=== PATIENT | female | born 1940 | race Caucasian/White ===

== ENCOUNTER → 2017-12-04 11:59 | Outpatient (CLI) | payer MEDICARE, OTHER, SELFPAY ==
[2017-12-04 12:50] LABS: Absolute Lymphocyte Count 0.93 X10^3/ul (0.83-4.51); Absolute Neutrophil Count 4.4 X10^3/uL (2.0-7.7); Basophil# 0.03 X10^3/uL; Basophil% 0.5 % (0-1); Eosinophil# 0.11 X10^3/uL; Eosinophils% 1.9 % (0-5); Hematocrit 44.2 % (37-47); Hemoglobin 14.1 g/dl (12.0-15.0); Lymphocyte # 0.93 X10^3/ul (4.0); Lymphocyte % 15.8 % (19-41); Mean Corp Hgb Conc 31.9 g/gl (32-36); Mean Corpuscular Hgb 28.9 pg (27.0-32.0); Mean Corpuscular Volume 90.6 fL (81-99); Mean Platelet Vol. 9.9 fl (6.2-12.0); Monocyte% 6.8 % (0-10); Neutrophil # 4.39 X10^3/uL (2.7-7.7); Neutrophil % 74.8 % (47-70); POSITIVE COUNT NO; POSITIVE DIFFERENTIAL NO; POSITIVE MORPHOLOGY NO; Platelet Count 239 K/mm3 (150-450); RBC Distribution Width CV 13.2 % (11.6-14.6); RBC Distribution Width SD 43.5 fl (35.1-43.9); Red Blood Count 4.88 M/mm3 (4.2-5.4); White Blood Count 5.9 K/mm3 (4.4-11.0)
[2017-12-04 13:09] LABS: Anion Gap 9 (5-15); BUN 18 mg/dL (7-18); BUN/Creat Ratio 17.1 RATIO (10-20); Calcium,Total 9.3 mg/dL (8.5-10.1); Chloride 103 mmol/L (98-107); Creatinine, Serum 1.05 mg/dL (0.55-1.02); EST Glomerular Filtration Rate 54 mL/min (>60); Est Glom Filt Rate - Afr Amer 65 mL/min (>60); Glucose 106 mg/dL (74-106); Potassium 4.3 mmol/L (3.5-5.1); Sodium Level 138 mmol/L (136-145)
== END ==
PROVIDERS: Family Provider Internal Medicine; PCP Internal Medicine; Visit Provider Internal Medicine Cardiovascular Disease
DX: I25.119 Atherosclerotic heart disease of native coronary artery with unspecified angina pectoris (principal)
CPT/HCPCS: 36415; 71046; 80048; 85025

== ENCOUNTER 2017-12-09 08:31 | Inpatient (IN) | payer MEDICARE, OTHER, SELFPAY ==
[2017-12-09] VITALS (16 sets, daily range): BP systolic 91–177; BP diastolic 52–92; PULSE 61–95; RESP 16–24; TEMP 36.8–37.1; O2SAT 93–98; BMI 24.5; BMI 24.4
--- NOTE | 2017-12-09 08:49 | ED.VISSUMM ---
- ER Visit Summary Date of Service: 12/09/17 Chief Complaint: Chest pain History of Present Illness: The patient is a 77 F who presents with chest pain that began last night. Patient states she was at rest when the pain began. Patient states the pain is over the left chest and radiates down her left arm. Patient noticed a bruise in her left antecubital area that was swollen last night. Patient took 2 aspirin early this morning. Patient did not take any nitroglycerin tablets. Patient saw her office lead recently who increased her long-acting nitrate and her amlodipine. Patient does admit to some diaphoresis but denies any shortness of breath. Patient describes her pain as a heaviness. Patient states this is similar to her prior AL. Patient admits to nausea and vomiting. Patient also admits to some palpitations and a mild cough. Physical Examination: Vital signs are stable except for an elevated blood pressure of 159/92. Oral mucosa is pink and moist. Neck is supple. There is no JVD noted. Heart was regular rate and rhythm. There is a grade 2/6 systolic murmur at the right upper sternal border. Lungs are clear and equal bilaterally. There is good respiratory effort noted. Abdomen is soft. Bowel sounds are normal. There is no tenderness. Cranial nerves II through XII are intact. There are no focal motor or sensory deficits noted. Skin is warm dry. There is no diaphoresis noted. There is no pallor noted. The remaining physical exam is within normal limits. Test Results: EKG showed normal sinus rhythm with a rate of 97. There is ST depression in leads V2 through V6. These are new compared to the EKG dated 12/03/2017. CBC, basic metabolic profile, and troponin were obtained and were all essentially within normal limits. Chest x-ray does not show any acute cardiopulmonary process. Emergency Department Course and Treatment: Patient was given aspirin and sublingual nitroglycerin here. Patient had complete relief of her pain with one sublingual nitroglycerin tablet. Case was discussed with Dr. Voss. He will admit the patient to his service. Patient and family understand and are agreeable with the plan. All questions were answered. Disposition: Admission Impression: Chest pain This note was generated with [employer] dictation software. It may contain incorrect words, spelling, and punctuation that were not noted in review of the chart prior to signing ED Disposition - Plan for ED Patient: Disposition: Acute Care Hospital [facility] Chief Complaint: Chest Other Diagnosis: Chest pain Referrals: Linda Guerrier [Primary Care Provider] -
[2017-12-09] MEDS: Ondansetron 4 MG/2 ML Vial IV (09:14)
[2017-12-09] MEDS: Aspirin 81 MG TAB.CHEW 324 MG PO (09:14)
[2017-12-09 09:15] LABS: Absolute Lymphocyte Count 1.03 X10^3/ul (0.83-4.51); Absolute Neutrophil Count 4.2 X10^3/uL (2.0-7.7); Basophil# 0.05 X10^3/uL; Basophil% 0.9 % (0-1); Eosinophil# 0.11 X10^3/uL; Eosinophils% 1.9 % (0-5); Hematocrit 41.2 % (37-47); Hemoglobin 14.3 g/dl (12.0-15.0); Lymphocyte # 1.03 X10^3/ul (4.0); Lymphocyte % 17.7 % (19-41); Mean Corp Hgb Conc 34.7 g/gl (32-36); Mean Corpuscular Hgb 30.4 pg (27.0-32.0); Mean Corpuscular Volume 87.7 fL (81-99); Mean Platelet Vol. 10.1 fl (6.2-12.0); Monocyte# 0.46 X10^3/uL; Monocyte% 7.9 % (0-10); Neutrophil # 4.15 X10^3/uL (2.7-7.7); Neutrophil % 71.4 % (47-70); Platelet Count 201 K/mm3 (150-450); RBC Distribution Width CV 12.9 % (11.6-14.6); White Blood Count 5.8 K/mm3 (4.4-11.0)
[2017-12-09 09:16] LABS: POSITIVE COUNT NO; POSITIVE DIFFERENTIAL NO; POSITIVE MORPHOLOGY NO
[2017-12-09 09:29] LABS: Anion Gap 11 (5-15); BUN 14 mg/dL (7-18); BUN/Creat Ratio 15.4 RATIO (10-20); Calcium,Total 9.2 mg/dL (8.5-10.1); Chloride 106 mmol/L (98-107); Creatinine, Serum 0.91 mg/dL (0.55-1.02); EST Glomerular Filtration Rate 63 mL/min (>60); Est Glom Filt Rate - Afr Amer 77 mL/min (>60); Estimated Creatinine Clearance 37.83 ml/min; Glucose 117 mg/dL (74-106); Potassium 3.6 mmol/L (3.5-5.1); Sodium Level 140 mmol/L (136-145)
--- NOTE | 2017-12-09 10:08 | NURSING ---
CALLED [facility] TO SEND PT
--- NOTE | 2017-12-09 10:11 | NURSING ---
SPOKE W/ DR. MENDEZ ABOUT CONSULTATION TO DR. LYNNE. OKAY TO WAIT TO CONSULT UNTIL TOMORROW THIS PT IS A PT HE FOLLOWS.
[2017-12-09] MEDS: Acetaminophen 325 MG Tablet 650 MG PO (11:37)
[2017-12-09] MEDS: Metoprolol Tartrate 50 MG Tablet PO ×2 (11:59→21:51)
[2017-12-09] MEDS: Losartan Potassium 100 MG Tablet PO (11:59)
[2017-12-09] MEDS: Isosorbide Mononitrate 30 MG Tablet PO (11:59)
[2017-12-09] MEDS: Enoxaparin 40 MG/0.4 ML Syringe SC (11:59)
[2017-12-09] MEDS: amLODIPine 10 MG Tablet PO (11:59)
[2017-12-09] MEDS: Clopidogrel Bisulfate 75 MG Tablet PO (12:00)
--- NOTE | 2017-12-09 13:39 | PCM.HP.STD ---
Problem List (1) Chest pain Status: Acute History of Present Illness Date of Admission: 12/09/17 Chief Complaint: chest pain The patient is a 77 year old F presents with chest pain. Chest pain woke her this morning and was midsternal. Patient states that she gets this intermittently given her prior history of coronary artery disease, however this time, patient had pain that went down her left arm. Patient was concerned and came to the emergency room. In the emergency room they did workup which was essentially unremarkable except for some deeper ST depressions in the anterior and lateral leads which were not as deep previously. Patient did receive nitroglycerin that did alleviate her pain. Patient states that over the past few weeks she has also been having whole nausea and vomiting. It is sporadic and was her very few days where she would have an episode to about every other day prior to this arrival. No direct correlation with her chest pain. Patient was having some shortness of breath as well. Patient denied any abdominal pain. [] Past Medical History Past Medical History (Chronic Problems): Chronic Problems (Last Updated 12/05/17 @ 15:44 by Marlys Richards) Atherosclerosis of coronary artery of [place] heart with angina pectoris (Chronic) [id number] and Mid LAD w/ 2.5 x 14 mm Resolute stent and 3 x 15 mm Resolute stent 08/09/14 Non-rheumatic aortic stenosis (Chronic) Hypertension (Chronic) Old myocardial infarction (Chronic) Medical History: Medical History (Last Reviewed 12/09/17 @ 13:41 by Stephan Voss DO) Atherosclerosis of coronary artery of [place] heart with angina pectoris (Chronic) I25.119 [id number] and Mid LAD w/ 2.5 x 14 mm Resolute stent and 3 x 15 mm Resolute stent 08/09/14 Non-rheumatic aortic stenosis (Chronic) I35.0 Hypertension (Chronic) I10 Old myocardial infarction (Chronic) I25.2 Allergies Penicillins Allergy (Verified 12/09/17 08:36) rash Sulfa (Sulfonamide Antibiotics) Allergy (Verified 12/09/17 08:36) rash Rivwwpd-Fcy-Rjq Reductase Inhibitor Adverse Reaction (Verified 12/09/17 08:36) myalgias Home Medications: Ambulatory Orders Medication Instructions Recorded amlodipine 5 mg tablet 10 mg PO DAILY #60 tab 12/04/17 cholecalciferol (vitamin D3) 50,000 unit PO FR 12/04/17 50,000 unit capsule clopidogrel 75 mg tablet 75 mg PO DAILY 12/04/17 isosorbide mononitrate ER 30 mg 30 mg PO DAILY #30 tab 12/04/17 tablet,extended release 24 hr losartan 100 mg tablet 100 mg PO DAILY 12/04/17 metoprolol tartrate 50 mg tablet 50 mg PO BID 12/04/17 nitroglycerin 0.4 mg sublingual 0.4 mg SUBLINGUAL Q5-15M PRN 12/04/17 tablet Aspirin [Aspirin EC] 81 mg PO DAILY 12/09/17 Surgical History: Surgical History (Last Reviewed 12/09/17 @ 13:41 by Stephan Voss DO) History of coronary artery stent placement (Resolved) Onset Date: 08/09/14 Z95.5 [id number] and Mid LAD w/ 2.5 x 14 mm Resolute stent and 3 x 15 mm Resolute stent 08/09/14 History of appendectomy Z90.49 Lives: Spouse/ Significant Other Smoking Status: Never smoker Tobacco Use: Non-smoker Alcohol: None - *Family History Paternal Family History: Family History (Last Reviewed 12/09/17 @ 13:41 by Stephan Voss DO) Father CAD (coronary artery disease) Myocardial infarction Review of Systems Constitutional: Denies: Chills, Fever, Weight Change Eyes: Denies: Blurred vision, Double vision HEENT: Denies: Head Aches, Sinus Congestion, Sinus Drainage Cardiovascular: Reports: Chest Pain. Denies: Edema Respiratory: Reports: Shortness of Breath. Denies: Cough Gastrointestinal: Reports: Nausea, Vomiting. Denies: Abdominal Pain Genitourinary: Denies: Dysuria Musculoskeletal: Reports: Arm Pain - Left arm. Denies: Joint Pain, Joint Tenderness Skin: Denies: Rash, Wounds Neurological: Denies: Numbness, Tingling, Focal weakness Psychiatric: Denies: Anxiety, Depression Hematologic/ Lymphatic: Denies: Easy Bruising, Easy Bleeding Comment: All review of systems are negative except as mentioned in the history of present illness and the other review of systems. VTE Information - Inpt Only VTE Present on Admission: No VTE Pharm Prophylaxis ordered?: Yes Patient Problems: Active and Suspected Problems (Last Updated 12/05/17 @ 15:44 by Marlys Richards) Chest pain (Acute) - Physical Exam General: Alert, Cooperative, No apparent distress HEENT: Atraumatic, Normocephalic Oral: Moist Mucosa, No Gingival or Mucosal Lesions/ Ulcerations Neck: No Nodes, Thyroid Normal Size and Texture Lungs: Clear to auscultation, Normal air movement, No rhonchi, No wheeze Cardiovascular: Regular rate, Regular Rhythm, Normal S1, Normal S2, - - 3 out of 6 systolic ejection murmur at the right upper sternal border Abdomen: Bowel Sounds Present, Soft, Non Tender, Non-Distended, No Hepato-splenomegaly Extremities: No edema, No Calf Tenderness Skin: No rashes, No breakdown Neurological: Neuro grossly intact, - - No clonus Psych/Mental Status: Normal Affect, Appropriate Vital Signs Temp Pulse Resp BP Pulse Ox 36.9 C 95 18 134/69 H 97 12/09/17 10:52 12/09/17 12:17 12/09/17 10:52 12/09/17 10:52 12/09/17 10:52 Oxygen Flow Rate (L/min) 2 Oxygen Delivery Method Room Air Weight: 58.7 kg Body Mass Index (BMI) 24.4 Laboratory Tests Past 24 Hrs 12/09/17 11:53 Troponin I < 0.015 Clinical Impression(s) from Imaging Studies Chest X-Ray 12/09/17 08:47 IMPRESSION: No acute pulmonary process Electronically Signed: Atnoni Porter MD at 9:22 EDT , Service support , EKG personally reviewed and showed normal sinus rhythm with greater than [address] depressions in anterior and lateral leads. Assessment/Plan All Active Problems (Last Updated 12/05/17 @ 15:44 by Marlys Richards) Chest pain (Acute) History of coronary artery stent placement (Resolved 08/09/14) 1. Chest pain Heart score 8 KATHY Currently chest pain-free Continue with medical management for now and consult cardiology 2. Aortic stenosis Patient recently sought secondary opinion for possible valve replacement. Follow-up with cardiology as outpatient. 3. DVT prophylaxis with low molecular weight heparin Code Visit OBSV E&M: 22391 Initial observation care L3
[2017-12-10] VITALS (23 sets, daily range): BP systolic 95–158; BP diastolic 46–78; PULSE 56–96; RESP 14–18; TEMP 36.7–37.1; O2SAT 92–95
--- NOTE | 2017-12-10 10:29 | PCM.CONS.C ---
Problem List (1) Angina pectoris Status: Acute (2) CAD (coronary artery disease) Status: Chronic Qualifiers: Coronary Disease-Associated Artery/Lesion type: [place] artery [place] vs. transplanted heart: [place] heart Associated angina: with unstable angina Qualified Code(s): I25.110 - Atherosclerotic heart disease of [place] coronary artery with unstable angina pectoris (3) History of coronary artery stent placement Status: Resolved Comment: [id number] and Mid LAD w/ 2.5 x 14 mm Resolute stent and 3 x 15 mm Resolute stent 08/09/14 (4) Non-rheumatic aortic stenosis Status: Chronic (5) HLD (hyperlipidemia) Status: Chronic Qualifiers: Hyperlipidemia type: unspecified Qualified Code(s): E78.5 - Hyperlipidemia, unspecified (6) Hypertension Status: Chronic Reason for Consult Date of Consultation: 12/10/17 History of Present Illness: The patient is a 77 year old white female with a past medical history of hyperlipidemia (Statin intolerance) hypertension, CAD, status post MO, status post PCI, aortic valve stenosis, who is referred for evaluation of symptoms concerning for accelerating angina pectoris/unstable angina pectoris. She recently presented to the outpatient setting for an initial outpatient cardiovascular consultation based upon the aforementioned history and concerns. After review of her case she was recommended for a transthoracic echocardiogram and a diagnostic cardiac catheterization. In the interim based on ongoing symptoms she presented to [facility] for further evaluation care. She states that her symptoms have included the elephant sitting on my chest feeling as well as left upper extremity discomfort and nausea/emesis. She also gets short of breath and dyspneic with exertional activity especially an incline. She has denied orthopnea and PND and worsening peripheral pitting edema. There has been a questionable history of post nitroglycerin sublingual use transient unresponsiveness and or loss of consciousness. She does not recall any episodes of abrupt syncope. He is being admitted to the hospital she has had cardiac enzymes performed. They have been negative. She had ECGs performed. She was noted on electrocardiogram to have sinus rhythm. She did have ST and T-wave abnormality concerning for myocardial ischemia - anterior/lateral/inferior. These changes appear to be somewhat less prominent since admission to the hospital. She also had a chest x-ray performed. Based upon preliminary review she had no acute radiologic changes. [] Past Medical History Allergies/Adverse Reactions: Allergies Penicillins Allergy (Verified 12/09/17 08:36) rash Sulfa (Sulfonamide Antibiotics) Allergy (Verified 12/09/17 08:36) rash Rvjsvvy-Qxx-Ycb Reductase Inhibitor Adverse Reaction (Verified 12/09/17 08:36) myalgias Home Medications: Ambulatory Orders Medication Instructions Recorded amlodipine 5 mg tablet 10 mg PO DAILY #60 tab 12/04/17 cholecalciferol (vitamin D3) 50,000 unit PO FR 12/04/17 50,000 unit capsule clopidogrel 75 mg tablet 75 mg PO DAILY 12/04/17 isosorbide mononitrate ER 30 mg 30 mg PO DAILY #30 tab 12/04/17 tablet,extended release 24 hr losartan 100 mg tablet 100 mg PO DAILY 12/04/17 metoprolol tartrate 50 mg tablet 50 mg PO BID 12/04/17 nitroglycerin 0.4 mg sublingual 0.4 mg SUBLINGUAL Q5-15M PRN 12/04/17 tablet Aspirin [Aspirin EC] 81 mg PO DAILY 12/09/17 Past Medical History (Chronic Problems): Chronic Problems (Last Reviewed 12/09/17 @ 13:41 by Stephan Voss DO) CAD (coronary artery disease) (Chronic) HLD (hyperlipidemia) (Chronic) Atherosclerosis of coronary artery of [place] heart with angina pectoris (Chronic) [id number] and Mid LAD w/ 2.5 x 14 mm Resolute stent and 3 x 15 mm Resolute stent 08/09/14 Non-rheumatic aortic stenosis (Chronic) Hypertension (Chronic) Old myocardial infarction (Chronic) Surgical History: angioplasty - *Family History Paternal Family History: Family History (Last Reviewed 12/09/17 @ 13:41 by Stephan Voss DO) Father CAD (coronary artery disease) Myocardial infarction Lives: Spouse/ Significant Other Smoking Status: Never smoker Tobacco Use: Non-smoker Alcohol: None Review of Systems - Review of Systems General: Denies: Fever, Night Sweats, Fatigue Cardiovascular: Reports: Chest Discomfort, Chest Discomfort at Rest, Shortness of Breath, Shortness of Breath at Rest, Shortness of Breath with Exertion, Near Syncope, Syncope. Denies: Orthopnea, PND, Peripheral Edema, Palpitations, Lightheadedness, Dizziness Respiratory: Reports: Shortness of Breath. Denies: Cough, Sputum Production, Hemoptysis Gastrointestinal: Reports: Nausea, Emesis. Denies: Hematemesis, Hematochezia, Melena Genitourinary: Denies: Dysuria, Hematuria Skin: Denies: Rash Subjectve: This is a thin 77 yo white female who appears to be resting comfortably at the moment in no acute distress. Objective: Vital Signs Temp Pulse Resp BP Pulse Ox 98.5 F 80 18 130/75 H 94 12/10/17 09:45 12/10/17 09:45 12/10/17 09:45 12/10/17 09:45 12/10/17 09:45 Oxygen Flow Rate (L/min) 2 Oxygen Delivery Method Room Air Weight: 129 lb 6.581 oz Body Mass Index (BMI) 24.4 Intake and Output for Last 24 Hours 12/08/17 12/09/17 12/10/17 23:59 23:59 23:59 Intake Total 350 / 350 Balance 350 / 350 General: Awake, Alert, Oriented x 3, Cooperative, No Acute Distress HEENT: Atraumatic, Normocephalic, PERRL, EOMI, Sclera Non Icteric Oral: Moist Mucosa Neck: Supple, Good ROM, No JVD Lungs: Clear to auscultation Cardiovascular: Regular Rhythm, Normal S1, Dimished A2 Murmur Murmur: Grade 3/6, Harsh, Mid Systolic, LLSB, LVOT, Sternal Notch Vascular: Radiation of Murmur to Carotid Arteries Abdomen: Bowel Sounds Present, Soft, Non Tender Extremities: No Cyanosis, No Clubbing, No edema Neurological: No Focal Motor or Sensory Deficit Psych/Mental Status: Appropriate, Normal Affect 12/09/17 11:53: Troponin I < 0.015 12/09/17 14:40: Troponin I < 0.015 Rhythm: Sinus rhythm EKG: As noted above ECHO: 03/21/2017: [facility]: [facility]: [place], [place]: Left ventricle reported as normal LV wall motion and systolic function with an LVEF of 60-65% with mild left ventricular hypertrophy; moderate mitral annular calcification with mild mitral valve regurgitation; moderately calcified trisinus aortic valve with a peak gradient of 35 mmHg and a mean gradient of 25 mmHg consistent with moderate aortic valve stenosis; no pericardial effusion; normal size ascending aorta Stress Test: 09/22/2015: Pharmacologic stress nuclear imaging study: Srini is abnormal with a moderate sized mild severity infarct in the mid to basal inferior and inferolateral collado with a small area of mild severity karly-infarct ischemia with normal LV size and systolic function with an LV noting hypokinesis of the inferior wall Cardiac Cath: 08/09/2014: [facility] [place]: LAD calcified with ostial 70% stenosis and mid 85% stenosis; LCx nondominant with mid 95% stenosis; RCA reported as ostial 100% stenosis; left to right collateral flow PCI: 07/26/2014: [place], [place]: LAD PCI/JALEEL CXR: As noted above Assessment/Plan . Accelerating angina pectoris/unstable angina pectoris The patient presents with the aforementioned cardiovascular risk factors, symptoms, superimposed upon previous diagnosis documenting her underlying CAD and her aortic valve disorder. At the present time she is being monitored. Her cardiac enzymes have been evaluated. Her ECG has demonstrated the aforementioned waxing and waning ST segment changes. A transthoracic echocardiogram is pending to further evaluate her aortic valve as well as her left ventricular wall motion and systolic function. However, it was felt based upon her clinical case she should be considered for further evaluation with diagnostic cardiac catheterization. The procedure and risks were discussed with the patient and her multiple family members present. She was agreeable to this approach. In the interim she will continue medical management as deemed appropriate. 2. CAD status post PCI The patient has undergone previous diagnostic cardiac catheterizations at [facility] and at [facility] in [facility]. Her most recent evaluations are those noted above in 2014 leading to her LAD PCI/JALEEL. At the present time she will continue medical management. She will proceed with evaluation as described above. 3. Aortic valve disorder She does have an aortic valve disorder. She was told by her pastry sous chef in [place], [place] that at some point in time she may need her aortic valve intervened upon. Transthoracic echogram is being performed to reassess her aortic valve anatomy and physiology. 4. Hyperlipidemia The patient states she has hyperlipidemia. She states she is intolerant to statins based upon myalgias of the lower extremities. 5. Hypertension The patient will continue antihypertensive therapy as deemed appropriate. However, attempt should be made to avoid hypotension especially in light of the patient's underlying aortic valve stenosis. Comment: The above was discussed and reviewed with the patient and her multiple family members present. This note was generated with [employer] software. It may contain incorrect words, spelling, and punctuation that were not noted in checking the note before signing.
--- NOTE | 2017-12-10 10:33 | CON.PCM_ITS ---
Problem List (1) Angina pectoris Status: Acute (2) CAD (coronary artery disease) Status: Chronic Qualifiers: Coronary Disease-Associated Artery/Lesion type: [place] artery [place] vs. transplanted heart: [place] heart Associated angina: with unstable angina Qualified Code(s): I25.110 - Atherosclerotic heart disease of [place] coronary artery with unstable angina pectoris (3) History of coronary artery stent placement Status: Resolved Comment: GSS-MHS-Morw and Mid LAD w/ 2.5 x 14 mm Resolute stent and 3 x 15 mm Resolute stent 08/09/14 (4) Non-rheumatic aortic stenosis Status: Chronic (5) HLD (hyperlipidemia) Status: Chronic Qualifiers: Hyperlipidemia type: unspecified Qualified Code(s): E78.5 - Hyperlipidemia , unspecified (6) Hypertension Status: Chronic Reason for Consult Date of Consultation: 12/10/17 History of Present Illness: The patient is a 77 year old white female with a past medical history of hyperlipidemia (Statin intolerance) hypertension, CAD, status post WA, status post PCI, aortic valve stenosis, who is referred for evaluation of symptoms concerning for accelerating angina pectoris/unstable angina pectoris. She recently presented to the outpatient setting for an initial outpatient cardiovascular consultation based upon the aforementioned history and concerns. After review of her case she was recommended for a transthoracic echocardiogram and a diagnostic cardiac catheterization. In the interim based on ongoing symptoms she presented to [facility] for further evaluation care. She states that her symptoms have included the elephant sitting on my chest feeling as well as left upper extremity discomfort and nausea/emesis. She also gets short of breath and dyspneic with exertional activity especially an incline. She has denied orthopnea and PND and worsening peripheral pitting edema. There has been a questionable history of post nitroglycerin sublingual use transient unresponsiveness and or loss of consciousness. She does not recall any episodes of abrupt syncope. He is being admitted to the hospital she has had cardiac enzymes performed. They have been negative. She had ECGs performed. She was noted on electrocardiogram to have sinus rhythm. She did have ST and T-wave abnormality concerning for myocardial ischemia - anterior/lateral/inferior. These changes appear to be somewhat less prominent since admission to the hospital. She also had a chest x-ray performed. Based upon preliminary review she had no acute radiologic changes. [] Past Medical History Allergies/Adverse Reactions: Allergies Penicillins Allergy (Verified 12/09/17 08:36) rash Sulfa (Sulfonamide Antibiotics) Allergy (Verified 12/09/17 08:36) rash Fekynqh-Gul-Qul Reductase Inhibitor Adverse Reaction (Verified 12/09/17 08:36) myalgias Home Medications: Ambulatory Orders Medication Instructions Recorded amlodipine 5 mg tablet 10 mg PO DAILY #60 tab 12/04/17 cholecalciferol (vitamin D3) 50,000 unit PO FR 12/04/17 50,000 unit capsule clopidogrel 75 mg tablet 75 mg PO DAILY 12/04/17 isosorbide mononitrate ER 30 mg 30 mg PO DAILY #30 tab 12/04/17 tablet,extended release 24 hr losartan 100 mg tablet 100 mg PO DAILY 12/04/17 metoprolol tartrate 50 mg tablet 50 mg PO BID 12/04/17 nitroglycerin 0.4 mg sublingual 0.4 mg SUBLINGUAL Q5-15M PRN 12/04/17 tablet Aspirin [Aspirin EC] 81 mg PO DAILY 12/09/17 Past Medical History (Chronic Problems): Chronic Problems (Last Reviewed 12/09/17 @ 13:41 by Stephan Voss DO) CAD (coronary artery disease) (Chronic) HLD (hyperlipidemia) (Chronic) Atherosclerosis of coronary artery of [place] heart with angina pectoris (Chronic ) [id number] and Mid LAD w/ 2.5 x 14 mm Resolute stent and 3 x 15 mm Resolute stent 08/09/14 Non-rheumatic aortic stenosis (Chronic) Hypertension (Chronic) Old myocardial infarction (Chronic) Surgical History: angioplasty - *Family History Paternal Family History: Family History (Last Reviewed 12/09/17 @ 13:41 by Stephan Voss DO) Father CAD (coronary artery disease) Myocardial infarction Lives: Spouse/ Significant Other Smoking Status: Never smoker Tobacco Use: Non-smoker Alcohol: None Review of Systems - Review of Systems General: Denies: Fever, Night Sweats, Fatigue Cardiovascular: Reports: Chest Discomfort, Chest Discomfort at Rest, Shortness of Breath, Shortness of Breath at Rest, Shortness of Breath with Exertion, Near Syncope, Syncope. Denies: Orthopnea, PND, Peripheral Edema, Palpitations, Lightheadedness, Dizziness Respiratory: Reports: Shortness of Breath. Denies: Cough, Sputum Production, Hemoptysis Gastrointestinal: Reports: Nausea, Emesis. Denies: Hematemesis, Hematochezia, Melena Genitourinary: Denies: Dysuria, Hematuria Skin: Denies: Rash Subjectve: This is a thin 77 yo white female who appears to be resting comfortably at the moment in no acute distress. Objective: Vital Signs Temp Pulse Resp BP Pulse Ox 98.5 F 80 18 130/75 H 94 12/10/17 09:45 12/10/17 09:45 12/10/17 09:45 12/10/17 09:45 12/10/17 09:45 Oxygen Flow Rate (L/min) 2 Oxygen Delivery Method Room Air Weight: 129 lb 6.581 oz Body Mass Index (BMI) 24.4 Intake and Output for Last 24 Hours 12/08/17 12/09/17 12/10/17 23:59 23:59 23:59 Intake Total 350 / 350 Balance 350 / 350 General: Awake, Alert, Oriented x 3, Cooperative, No Acute Distress HEENT: Atraumatic, Normocephalic, PERRL, EOMI, Sclera Non Icteric Oral: Moist Mucosa Neck: Supple, Good ROM, No JVD Lungs: Clear to auscultation Cardiovascular: Regular Rhythm, Normal S1, Dimished A2 Murmur Murmur: Grade 3/6, Harsh, Mid Systolic, LLSB, LVOT, Sternal Notch Vascular: Radiation of Murmur to Carotid Arteries Abdomen: Bowel Sounds Present, Soft, Non Tender Extremities: No Cyanosis, No Clubbing, No edema Neurological: No Focal Motor or Sensory Deficit Psych/Mental Status: Appropriate, Normal Affect 12/09/17 11:53: Troponin I < 0.015 12/09/17 14:40: Troponin I < 0.015 Rhythm: Sinus rhythm EKG: As noted above ECHO: 03/21/2017: [facility]: [facility]: [place], [place]: Left ventricle reported as normal LV wall motion and systolic function with an LVEF of 60-65% with mild left ventricular hypertrophy; moderate mitral annular calcification with mild mitral valve regurgitation; moderately calcified trisinus aortic valve with a peak gradient of 35 mmHg and a mean gradient of 25 mmHg consistent with moderate aortic valve stenosis; no pericardial effusion; normal size ascending aorta Stress Test: 09/22/2015: Pharmacologic stress nuclear imaging study: Srini is abnormal with a moderate sized mild severity infarct in the mid to basal inferior and inferolateral collado with a small area of mild severity karly-infarct ischemia with normal LV size and systolic function with an LV noting hypokinesis of the inferior wall Cardiac Cath: 08/09/2014: [facility] ([place]: LAD calcified with ostial 70% stenosis and mid 85% stenosis; LCx nondominant with mid 95% stenosis; RCA reported as ostial 100% stenosis; left to right collateral flow PCI: 07/26/2014: [place], [place]: LAD PCI/JALEEL CXR: As noted above Assessment/Plan . Accelerating angina pectoris/unstable angina pectoris The patient presents with the aforementioned cardiovascular risk factors, symptoms, superimposed upon previous diagnosis documenting her underlying CAD and her aortic valve disorder. At the present time she is being monitored. Her cardiac enzymes have been evaluated. Her ECG has demonstrated the aforementioned waxing and waning ST segment changes. A transthoracic echocardiogram is pending to further evaluate her aortic valve as well as her left ventricular wall motion and systolic function. However, it was felt based upon her clinical case she should be considered for further evaluation with diagnostic cardiac catheterization. The procedure and risks were discussed with the patient and her multiple family members present. She was agreeable to this approach. In the interim she will continue medical management as deemed appropriate. 2. CAD status post PCI The patient has undergone previous diagnostic cardiac catheterizations at [facility] and at [facility] both in [facility]. Her most recent evaluations are those noted above in 2014 leading to her LAD PCI/JALEEL. At the present time she will continue medical management. She will proceed with evaluation as described above. 3. Aortic valve disorder She does have an aortic valve disorder. She was told by her helicopter dispatcher in [place], [place] that at some point in time she may need her aortic valve intervened upon. Transthoracic echogram is being performed to reassess her aortic valve anatomy and physiology. 4. Hyperlipidemia The patient states she has hyperlipidemia. She states she is intolerant to statins based upon myalgias of the lower extremities. 5. Hypertension The patient will continue antihypertensive therapy as deemed appropriate. However, attempt should be made to avoid hypotension especially in light of the patient's underlying aortic valve stenosis. Comment: The above was discussed and reviewed with the patient and her multiple family members present. This note was generated with [employer] software. It may contain incorrect words, spelling, and punctuation that were not noted in checking the note before signing.
[2017-12-10] MEDS: Losartan Potassium 100 MG Tablet PO (10:57)
[2017-12-10] MEDS: Aspirin E.C. 81 MG Tablet PO (10:57)
[2017-12-10] MEDS: Metoprolol Tartrate 50 MG Tablet PO ×2 (10:57→21:04)
[2017-12-10] MEDS: amLODIPine 10 MG Tablet PO (10:57)
[2017-12-10] MEDS: Isosorbide Mononitrate 30 MG Tablet PO (10:57)
[2017-12-10] MEDS: Clopidogrel Bisulfate 75 MG Tablet PO (10:57)
[2017-12-10] MEDS: 0.9% NaCl Peripheral Flush Adult/Peds IV (11:06)
[2017-12-10] MEDS: 0.9% Normal Saline 1,000 ML 15 ML IV (11:06)
[2017-12-10 11:11] LABS: Absolute Lymphocyte Count 0.87 X10^3/ul (0.83-4.51); Absolute Neutrophil Count 4.4 X10^3/uL (2.0-7.7); Basophil# 0.03 X10^3/uL; Basophil% 0.5 % (0-1); Eosinophil# 0.09 X10^3/uL; Eosinophils% 1.6 % (0-5); Hemoglobin 14.3 g/dl (12.0-15.0); Lymphocyte # 0.87 X10^3/ul (4.0); Lymphocyte % 15.2 % (19-41); Mean Corp Hgb Conc 33.3 g/gl (32-36); Mean Corpuscular Hgb 29.6 pg (27.0-32.0); Monocyte# 0.35 X10^3/uL; Monocyte% 6.1 % (0-10); Neutrophil # 4.39 X10^3/uL (2.7-7.7); Neutrophil % 76.4 % (47-70); Platelet Count 201 K/mm3 (150-450); RBC Distribution Width CV 13.1 % (11.6-14.6); RBC Distribution Width SD 42.3 fl (35.1-43.9); Red Blood Count 4.83 M/mm3 (4.2-5.4); White Blood Count 5.7 K/mm3 (4.4-11.0)
[2017-12-10 11:18] LABS: Prothrombin Time (Protime)PT. 13.4 SECONDS (11.7-14.9)
[2017-12-10 11:19] LABS: Partial Thromboplast Time 32.7 Seconds (24.1-36.2)
[2017-12-10 11:22] LABS: POSITIVE COUNT NO; POSITIVE DIFFERENTIAL NO; POSITIVE MORPHOLOGY NO
[2017-12-10 11:27] LABS: Anion Gap 12 (5-15); BUN 16 mg/dL (7-18); BUN/Creat Ratio 16.1 RATIO (10-20); Calcium,Total 9.1 mg/dL (8.5-10.1); Chloride 104 mmol/L (98-107); Creatinine, Serum 0.99 mg/dL (0.55-1.02); EST Glomerular Filtration Rate 57 mL/min (>60); Est Glom Filt Rate - Afr Amer 69 mL/min (>60); Estimated Creatinine Clearance 34.77 ml/min; Glucose 91 mg/dL (74-106); Sodium Level 141 mmol/L (136-145)
--- NOTE | 2017-12-10 11:43 | PCM.PN.HOSP ---
Patient Problems: Active and Suspected Problems (Last Reviewed 12/09/17 @ 13:41 by Stephan Voss DO) Chest pain (Acute) Angina pectoris (Acute) Subjective: No further chest pain. Vitals/I&O's: Vital Signs Temp Pulse Resp BP Pulse Ox 36.9 C 91 18 158/78 H 94 12/10/17 09:45 12/10/17 10:57 12/10/17 09:45 12/10/17 10:57 12/10/17 09:45 Oxygen Flow Rate (L/min) 2 Oxygen Delivery Method Room Air Weight: 58.7 kg Body Mass Index (BMI) 24.4 Intake and Output for Last 24 Hours 12/08/17 12/09/17 12/10/17 23:59 23:59 23:59 Intake Total 350 / 350 Balance 350 / 350 General: Alert, No apparent distress HEENT: Atraumatic, Normocephalic Oral: Moist Mucosa, No Gingival or Mucosal Lesions/ Ulcerations Neck: No Nodes, Thyroid Normal Size and Texture Lungs: Clear to auscultation, Normal air movement, No rhonchi, No wheeze Cardiovascular: Regular rate, Regular Rhythm, - - 3/6 BEBETO at RUSB Abdomen: Bowel Sounds Present, Soft, Non Tender, Non-Distended Extremities: No edema, No Calf Tenderness Skin: No rashes, No breakdown Psych/Mental Status: Normal Affect, Appropriate Laboratory Results 12/09/17 11:53: Troponin I < 0.015 12/09/17 14:40: Troponin I < 0.015 12/10/17 10:53: PT 13.4, INR 1.0, APTT 32.7 12/10/17 10:53: WBC 5.7, RBC 4.83, Hgb 14.3, Hct 43.0, MCV 89.0, MCH 29.6, MCHC 33.3, RDW 13.1, RDW Differential 42.3, Plt Count 201, MPV 10.0, Immature Gran % (Auto) 0.200, Neut % (Auto) 76.4 H, Lymph % (Auto) 15.2 L, [place] % (Auto) 6.1, Eos % (Auto) 1.6, Baso % (Auto) 0.5, Absolute Neuts (auto) 4.4, Absolute Lymphs (auto) 0.87, Total Counted Not Reportable 12/10/17 10:53: Sodium 141, Potassium 4.0, Chloride 104, Carbon Dioxide 25.0, Anion Gap 12, BUN 16, Creatinine 0.99, Estim Creat Clear Calc 34.77, Est GFR (MDRD) Af Amer 69, Est GFR (MDRD) Non-Af 57 L, BUN/Creatinine Ratio 16.1, Glucose 91, Calcium 9.1 Current Medications Acetaminophen (Tylenol) 650 mg PO Q6H PRN PRN PRN Reason: Mild Pain (1-3)/Temp > 100.7 F Last Admin: 12/09/17 11:37 Dose: 650 mg Amlodipine Besylate (Norvasc) 10 mg PO DAILY [facility] Last Admin: 12/10/17 10:57 Dose: 10 mg Aspirin (Ecotrin) 81 mg PO DAILY@0800 [facility] Last Admin: 12/10/17 10:57 Dose: 81 mg Clopidogrel Bisulfate (Plavix) 75 mg PO DAILY [facility] Last Admin: 12/10/17 10:57 Dose: 75 mg Enoxaparin Sodium (Lovenox) 40 mg SC DAILY@1000 [facility] Last Admin: 12/10/17 10:41 Dose: Not Given Ergocalciferol (Vitamin D) 50,000 unit PO Fr@0800 [facility] Sodium Chloride () 1,000 mls @ 15 mls/hr IV .Q48H [facility] PRN Reason: KVO Last Admin: 12/10/17 11:06 Dose: 15 mls/hr Isosorbide Mononitrate (Imdur) 30 mg PO DAILY [facility] Last Admin: 12/10/17 10:57 Dose: 30 mg Losartan Potassium (Cozaar) 100 mg PO DAILY [facility] Last Admin: 12/10/17 10:57 Dose: 100 mg Magnesium Hydroxide (Milk Of Magnesia) 30 ml PO DAILY PRN PRN Reason: Constipation Metoprolol Tartrate (Lopressor (Beta Stephan)) 50 mg PO BID [facility] Last Admin: 12/10/17 10:57 Dose: 50 mg Morphine Sulfate () 2 - 4 mg IV Q4H PRN PRN PRN Reason: MOD-SEVERE PAIN (4-10/10) Morphine Sulfate () 2 - 4 mg IV Q4H PRN PRN PRN Reason: MOD-SEVERE PAIN (4-10/10) Nitroglycerin (Nitrostat) 0.4 mg SUBLINGUAL .Q5-15M PRN PRN Reason: CHEST PAIN Ondansetron HCl (Zofran) 4 mg IV Q8H PRN PRN PRN Reason: NAUSEA Oxycodone HCl (Oxyir) 5 - 10 mg PO Q4H PRN PRN PRN Reason: MOD-SEVERE PAIN (4-10/10) Sodium Chloride () 5 - 30 ml IV UD PRN PRN Reason: SALINE FLUSH Last Admin: 12/10/17 11:06 Dose: 10 ml Medical Necessity - Tobacco Use Smoking Status: Never smoker Tobacco Use: Non-smoker Assessment/Plan All Active Problems (Last Reviewed 12/09/17 @ 13:41 by Stephan Voss DO) Chest pain (Acute) Angina pectoris (Acute) History of coronary artery stent placement (Resolved 08/09/14) 1. Chest pain Heart score 8 KATHY 6 Currently chest pain-free Plan for [facility] later today or 12/11 2. Aortic stenosis Patient recently sought secondary opinion for possible valve replacement. Follow-up with cardiology as outpatient. 3. DVT prophylaxis with low molecular weight heparin Code Visit OBSV E&M: 46700 Subsequent observation care L2
--- NOTE | 2017-12-10 12:15 | NURSING ---
Report given to Kailey in [employer].
[2017-12-10] MEDS: 0.9% Normal Saline 1,000 ML 50 ML IV (14:37)
[2017-12-11] VITALS (18 sets, daily range): BP systolic 93–150; BP diastolic 56–87; PULSE 59–84; RESP 12–18; TEMP 36.6–37.3; O2SAT 92–97; BMI 24.4
[2017-12-11 05:55] LABS: Absolute Lymphocyte Count 0.81 X10^3/ul (0.83-4.51); Absolute Neutrophil Count 3.2 X10^3/uL (2.0-7.7); Basophil# 0.02 X10^3/uL; Basophil% 0.4 % (0-1); Eosinophil# 0.16 X10^3/uL; Eosinophils% 3.5 % (0-5); Hematocrit 39.9 % (37-47); Lymphocyte # 0.81 X10^3/ul (4.0); Lymphocyte % 17.8 % (19-41); Mean Corp Hgb Conc 32.6 g/gl (32-36); Mean Corpuscular Hgb 29.3 pg (27.0-32.0); Mean Corpuscular Volume 90.1 fL (81-99); Mean Platelet Vol. 9.9 fl (6.2-12.0); Monocyte# 0.33 X10^3/uL; Monocyte% 7.3 % (0-10); Neutrophil # 3.23 X10^3/uL (2.7-7.7); Platelet Count 196 K/mm3 (150-450); RBC Distribution Width CV 13.3 % (11.6-14.6); RBC Distribution Width SD 43.7 fl (35.1-43.9); Red Blood Count 4.43 M/mm3 (4.2-5.4); White Blood Count 4.6 K/mm3 (4.4-11.0)
--- NOTE | 2017-12-11 05:55 | EKG12_ITS ---
Test Reason : AM EKG Blood Pressure : / mmHG Vent. Rate : 064 BPM Atrial Rate : 064 BPM P-R Int : 208 ms QRS Dur : 086 ms QT Int : 410 ms P-R-T Axes : 056 054 077 degrees QTc Int : 422 ms Normal sinus rhythm Normal ECG When compared with ECG of 10-DEC-2017 11:02, MANUAL COMPARISON REQUIRED, DATA IS UNCONFIRMED Confirmed by VINCENT BISHOP ([id number]), script editor JESSICA HIGGINS ([id number]) on 12/17/2017 3:15:23 PM Referred By: ANDREA Confirmed By:VINCENT BISHOP
[2017-12-11 06:00] LABS: POSITIVE COUNT NO; POSITIVE DIFFERENTIAL NO; POSITIVE MORPHOLOGY NO
[2017-12-11 06:03] LABS: International Normalized Ratio 1.1
[2017-12-11 06:06] LABS: Anion Gap 9 (5-15); BUN 19 mg/dL (7-18); BUN/Creat Ratio 20.3 RATIO (10-20); Calcium,Total 8.8 mg/dL (8.5-10.1); Chloride 107 mmol/L (98-107); Creatinine, Serum 0.93 mg/dL (0.55-1.02); EST Glomerular Filtration Rate 62 mL/min (>60); Est Glom Filt Rate - Afr Amer 74 mL/min (>60); Estimated Creatinine Clearance 37.01 ml/min; Glucose 89 mg/dL (74-106); Potassium 4.1 mmol/L (3.5-5.1); Sodium Level 142 mmol/L (136-145)
[2017-12-11] MEDS: Losartan Potassium 100 MG Tablet PO (12:38)
[2017-12-11] MEDS: Metoprolol Tartrate 50 MG Tablet PO ×2 (12:38→21:36)
[2017-12-11] MEDS: 0.9% Normal Saline 1,000 ML 50 ML IV (12:38)
[2017-12-11] MEDS: Aspirin E.C. 81 MG Tablet PO (12:38)
[2017-12-11] MEDS: Isosorbide Mononitrate 30 MG Tablet PO (12:38)
[2017-12-11] MEDS: amLODIPine 10 MG Tablet PO (12:39)
[2017-12-11] MEDS: Enoxaparin 40 MG/0.4 ML Syringe SC (12:39)
[2017-12-11] MEDS: Clopidogrel Bisulfate 75 MG Tablet PO (12:39)
--- NOTE | 2017-12-11 14:25 | NURSING ---
Read and reviewed SN Documentation
--- NOTE | 2017-12-11 15:48 | PCM.PN.HOSP ---
Patient Problems: Active and Suspected Problems (Last Reviewed 12/09/17 @ 13:41 by Stephan Voss DO) Chest pain (Acute) Angina pectoris (Acute) Subjective: status post MACIE. No chest pain. Anxious to go home. Vitals/I&O's: Vital Signs Temp Pulse Resp BP Pulse Ox 36.6 C 70 16 106/63 97 12/11/17 15:28 12/11/17 15:28 12/11/17 15:28 12/11/17 15:28 12/11/17 15:28 General: Alert, No apparent distress HEENT: Atraumatic, Normocephalic Oral: Moist Mucosa, No Gingival or Mucosal Lesions/ Ulcerations Neck: No Nodes, Thyroid Normal Size and Texture Lungs: Clear to auscultation, Normal air movement, No rhonchi, No wheeze Cardiovascular: Regular rate, Regular Rhythm, Normal S1, Normal S2 Current Medications Acetaminophen (Tylenol) 650 mg PO Q6H PRN PRN PRN Reason: Mild Pain (1-3)/Temp > 100.7 F Last Admin: 12/09/17 11:37 Dose: 650 mg Amlodipine Besylate (Norvasc) 10 mg PO DAILY [facility] Last Admin: 12/11/17 12:39 Dose: 10 mg Aspirin (Ecotrin) 81 mg PO DAILY@0800 [facility] Last Admin: 12/11/17 12:38 Dose: 81 mg Clopidogrel Bisulfate (Plavix) 75 mg PO DAILY [facility] Last Admin: 12/11/17 12:39 Dose: 75 mg Enoxaparin Sodium (Lovenox) 40 mg SC DAILY@1000 [facility] Last Admin: 12/11/17 12:39 Dose: 40 mg Ergocalciferol (Vitamin D) 50,000 unit PO Fr@0800 [facility] Sodium Chloride () 1,000 mls @ 15 mls/hr IV .Q48H [facility] PRN Reason: KVO Last Admin: 12/10/17 11:06 Dose: 15 mls/hr Sodium Chloride () 1,000 mls @ 50 mls/hr IV .Q20H [facility] Last Admin: 12/11/17 12:38 Dose: 50 mls/hr Isosorbide Mononitrate (Imdur) 30 mg PO DAILY [facility] Last Admin: 12/11/17 12:38 Dose: 30 mg Losartan Potassium (Cozaar) 100 mg PO DAILY [facility] Last Admin: 12/11/17 12:38 Dose: 100 mg Magnesium Hydroxide (Milk Of Magnesia) 30 ml PO DAILY PRN PRN Reason: Constipation Metoprolol Tartrate (Lopressor (Beta Stephan)) 50 mg PO BID [facility] Last Admin: 12/11/17 12:38 Dose: 50 mg Morphine Sulfate () 2 - 4 mg IV Q4H PRN PRN PRN Reason: MOD-SEVERE PAIN (4-10/10) Morphine Sulfate () 2 - 4 mg IV Q4H PRN PRN PRN Reason: MOD-SEVERE PAIN (4-10/10) Nitroglycerin (Nitrostat) 0.4 mg SUBLINGUAL .Q5-15M PRN PRN Reason: CHEST PAIN Ondansetron HCl (Zofran) 4 mg IV Q8H PRN PRN PRN Reason: NAUSEA Oxycodone HCl (Oxyir) 5 - 10 mg PO Q4H PRN PRN PRN Reason: MOD-SEVERE PAIN (4-10/10) Sodium Chloride () 5 - 30 ml IV UD PRN PRN Reason: SALINE FLUSH Last Admin: 12/10/17 11:06 Dose: 10 ml Medical Necessity - Tobacco Use Smoking Status: Never smoker Tobacco Use: Non-smoker Assessment/Plan All Active Problems (Last Reviewed 12/09/17 @ 13:41 by Stephan Voss DO) Chest pain (Acute) Angina pectoris (Acute) History of coronary artery stent placement (Resolved 08/09/14) 1. Chest pain Heart score 8 KATHY 6 Currently chest pain-free LHC showed 85% stenosis of Mid LAD, 85% stenosis proximal diag, 95% stenosis Mid Circ, occlusion proximal RCA cardiology to discuss further with patient and family 2. Aortic stenosis MACIE done, results pending cardiology to discuss with patient later today. 3. DVT prophylaxis with low molecular weight heparin Code Visit Inpatient E&M: 91906 Subs Hosp L2
--- NOTE | 2017-12-11 19:03 | PCM.PN.CARD ---
Subjectve: The patient is now status post further evaluation with transesophageal echocardiogram. She denies any ongoing symptoms at rest. Objective: Vital Signs Temp Pulse Resp BP Pulse Ox 97.9 F 70 16 106/63 97 12/11/17 15:28 12/11/17 15:28 12/11/17 15:28 12/11/17 15:28 12/11/17 15:28 Intake and Output for Last 24 Hours 12/09/17 12/10/17 12/11/17 23:59 23:59 23:59 Intake Total 539 / 1387 Balance 539 / 1387 General: Awake, Alert, Oriented x 3, Cooperative, No Acute Distress HEENT: Atraumatic, Normocephalic, PERRL, EOMI, Sclera Non Icteric Oral: Moist Mucosa Neck: Supple, Good ROM, No JVD Lungs: Clear to auscultation Cardiovascular: Regular Rhythm, Normal S1, Normal S2 Murmur Murmur: Grade 3/6, Harsh, Mid Systolic, LLSB, LVOT, Sternal Notch Abdomen: Bowel Sounds Present, Soft, Non Tender Extremities: No Cyanosis, No Clubbing, No edema Neurological: No Focal Motor or Sensory Deficit Psych/Mental Status: Appropriate Rhythm: Sinus rhythm Transesophageal echocardiogram: Preliminary report: Aortic valve stenosis with aortic valve area by planimetry of approximately 0.7-0.8 cm? Medical Necessity - Tobacco Use Smoking Status: Never smoker Tobacco Use: Non-smoker Assessment/Plan . Accelerating angina pectoris/unstable angina pectoris The patient has been treated medically. She has undergone further evaluation with diagnostic cardiac catheterization. This has demonstrated progression of her underlying [place] vessel CAD especially with high-grade disease to the LAD/diagonal branch system superimposed upon chronic high-grade disease to the LCx and RCA system. It was elected prior to proceeding with multivessel PCI to further evaluate her aortic valve disorder. As her aortic valve disorder suggests, by MACIE planimetry, severe aortic valve stenosis, it is been recommended the patient be transferred to a tertiary care center for CT surgery evaluation for the possibility of combined CABG and aortic valve replacement. If CT surgery does not want to proceed with surgical intervention then interventional cardiology at the tertiary care center can be consulted for high risk PCI. 2. CAD status post PCI At the present time she will continue medical management. She will proceed with evaluation as described above. 3. Aortic valve disorder She does have an aortic valve disorder. She was told by her carpet winder in [place], [place] that at some point in time she may need her aortic valve intervened upon. She has undergone evaluation with both transthoracic and transesophageal echocardiogram. Again based upon the MACIE findings there is concern of severe aortic valve stenosis. Thus it is recommended she be transferred to a tertiary care center as noted above for further evaluation and care by CT surgery. 4. Hyperlipidemia The patient states she has hyperlipidemia. She states she is intolerant to statins based upon myalgias of the lower extremities. 5. Hypertension The patient will continue antihypertensive therapy as deemed appropriate. However, attempt should be made to avoid hypotension especially in light of the patient's underlying aortic valve stenosis. Comment: The above was discussed and reviewed with the patient and her multiple family members present. They were agreeable to this approach. This note was generated with [employer] dictation software. It may contain incorrect words, spelling, and punctuation that were not noted in checking the note before signing.
[2017-12-12] VITALS (8 sets, daily range): BP systolic 123–141; BP diastolic 66–70; PULSE 61–88; RESP 16–18; TEMP 36.6–37; O2SAT 94–95
[2017-12-12] MEDS: Acetaminophen 325 MG Tablet 650 MG PO (03:42)
[2017-12-12] MEDS: 0.9% Normal Saline 1,000 ML 50 ML IV (06:07)
[2017-12-12] MEDS: Aspirin E.C. 81 MG Tablet PO (08:04)
--- NOTE | 2017-12-12 09:44 | CASEMGMT ---
Social Work: Per nursing documentation patient does not have Advance Directives and declined additional information. BHAVNA Sethi
[2017-12-12] MEDS: Isosorbide Mononitrate 30 MG Tablet PO (10:24)
[2017-12-12] MEDS: amLODIPine 10 MG Tablet PO (10:25)
[2017-12-12] MEDS: Metoprolol Tartrate 50 MG Tablet PO (10:27)
[2017-12-12] MEDS: Losartan Potassium 100 MG Tablet PO (10:27)
[2017-12-12] MEDS: Enoxaparin 40 MG/0.4 ML Syringe SC (13:42)
--- NOTE | 2017-12-12 15:56 | PCM.PN.HOSP ---
Subjective: No new events. Vitals/I&O's: Vital Signs Temp Pulse Resp BP Pulse Ox 37.0 C 76 16 141/66 H 95 12/12/17 10:28 12/12/17 11:01 12/12/17 10:28 12/12/17 10:28 12/12/17 10:28 Oxygen Delivery Method Room Air Intake and Output for Last 24 Hours 12/10/17 12/11/17 12/12/17 23:59 23:59 23:59 Intake Total 1081 937 / 937 Balance 1081 937 / 937 General: Alert, No apparent distress HEENT: Atraumatic, Normocephalic Oral: Moist Mucosa, No Gingival or Mucosal Lesions/ Ulcerations Neck: No Nodes, Thyroid Normal Size and Texture Lungs: Clear to auscultation, Normal air movement, No rhonchi, No wheeze Cardiovascular: Regular rate, Regular Rhythm, Normal S1, Normal S2, No murmurs Abdomen: Bowel Sounds Present, Soft, Non Tender, Non-Distended, No Hepato-splenomegaly Extremities: No edema Medical Necessity - Tobacco Use Smoking Status: Never smoker Tobacco Use: Non-smoker Assessment/Plan All Active Problems (Last Reviewed 12/09/17 @ 13:41 by Stephan Voss DO) Chest pain (Acute) Angina pectoris (Acute) History of coronary artery stent placement (Resolved 08/09/14) 1. Chest pain Heart score 8 KATHY 6 Currently chest pain-free LHC showed 85% stenosis of Mid LAD, 85% stenosis proximal diag, 95% stenosis Mid Circ, occlusion proximal RCA to [facility] for AVR and CABG 2. Aortic stenosis MACIE done, results pending cardiology to discuss with patient later today. 3. DVT prophylaxis with low molecular weight heparin Code Visit Inpatient E&M: 43625 Subs Hosp L2
--- NOTE | 2017-12-12 15:58 | PCM.DC.SUM ---
Discharge Date and Diagnosis - Problem List Patient Problems: Active and Suspected Problems (Last Reviewed 12/09/17 @ 13:41 by Stephan Voss DO) Unstable angina (Acute) Date of Admission: 12/09/17 Date of Discharge: 12/12/17 - Secondary Discharge Diagnosis Chronic Problems (Last Reviewed 12/09/17 @ 13:41 by Stephan Voss DO) CAD (coronary artery disease) (Chronic) HLD (hyperlipidemia) (Chronic) Atherosclerosis of coronary artery of [place] heart with angina pectoris (Chronic) [id number] and Mid LAD w/ 2.5 x 14 mm Resolute stent and 3 x 15 mm Resolute stent 08/09/14 Non-rheumatic aortic stenosis (Chronic) Hypertension (Chronic) Old myocardial infarction (Chronic) Hospital Course and Treatment Imaging Results: Clinical Impression(s) from Imaging Studies Chest X-Ray 12/09/17 08:47 IMPRESSION: No acute pulmonary process Electronically Signed: Antoni Porter MD at 9:22 EDT , Service support , Jack Patterson MD Operations: None Procedures: Cardiac catheterization, Transesophageal Echo Summary of Care Provided: The patient is a 77 year old F presents with chest pain. Patient underwent a left heart catheterization that showed 85% stenosis of the mid LAD, 85% stenosis of the proximal diagonal and 95% stenosis of the mid circumflex. Patient had MACIE for severe aortic stenosis. Dr. Patterson discussed with the family and patient wished to go to [facility] for further evaluation and potential treatment. Dr. Dyer agreed and accepted the patient. Currently patient is awaiting on bed placement once but has been opened up patient will be discharged. Patient is currently hemodynamically stable. [] Discharge Diet: Low fat/ Low Cholesterol Home Medications: Medications to take at Discharge amlodipine 5 mg tablet 10 mg PO DAILY #60 tab 12/04/17 cholecalciferol (vitamin D3) 50,000 unit capsule 50,000 unit PO FR 12/04/17 clopidogrel 75 mg tablet 75 mg PO DAILY 12/04/17 isosorbide mononitrate ER 30 mg tablet,extended release 24 hr 30 mg PO DAILY #30 tab 12/04/17 losartan 100 mg tablet 100 mg PO DAILY 12/04/17 metoprolol tartrate 50 mg tablet 50 mg PO BID 12/04/17 nitroglycerin 0.4 mg sublingual tablet 0.4 mg SUBLINGUAL Q5-15M PRN 12/04/17 Aspirin [Aspirin EC] 81 mg PO DAILY 12/09/17 Primary Care Physician: Linda Guerrier [Primary Care Provider] - Disposition: Acute care Hospital Minutes spent on discharge:: 32 Patient Condition:: Stable Medical Necessity - Tobacco Use Smoking Status: Never smoker Tobacco Use: Non-smoker Meaningful Use Info Meaningful Use Diagnoses (Choose all that apply): None applicable Code Visit Inpatient E&M: 87319 Disch Hosp
== END 2017-12-12 15:40 | disposition short-term general hospital (02) | DRG 287 ==
LOC: ED 10:01 → PCU 10:05
PROVIDERS: Internal Medicine Cardiovascular Disease; Emergency Provider Emergency Medicine; Family Provider Internal Medicine; PCP Internal Medicine
DX: I25.110 Atherosclerotic heart disease of native coronary artery with unstable angina pectoris (principal); I10 Essential (primary) hypertension; I35.0 Nonrheumatic aortic (valve) stenosis; E78.5 Hyperlipidemia, unspecified; I25.2 Old myocardial infarction; Z95.5 Presence of coronary angioplasty implant and graft
CPT/HCPCS: 36415; 71045; 80048; 84484; 85025; 85610; 85730; 93005; 93306; 93312; 93320; 93325; 93458; 97161; 97165; 99152; 99153; 99284; J7030; Q9967; A4216; C1769; C1894; J2405

== ENCOUNTER → 2018-01-16 14:29 | Outpatient (CLI) | payer MEDICARE, OTHER, SELFPAY ==
--- NOTE | 2018-01-16 14:36 | ECHOL_ITS ---
Reason For Study: S/P AVR Procedure This was a limited 2D transthoracic echocardiogram. Exam performed in department. Left Ventricle Normal LV size. Left ventricular systolic function is normal. The estimated ejection fraction is 60 %. No regional wall motion abnormalities noted. Right Ventricle Normal RV size. Normal systolic function. Atria Normal left atrium. Normal right atrium. Mitral Valve There is mild mitral annular calcification. Mild (1+) eccentric mitral valve insufficiency. Tricuspid Valve Normal tricuspid valve. Aortic Valve Mean aortic valve gradient 7 mmHg. Bioprosthetic aortic valve. Pulmonic Valve Normal pulmonic valve. Great Vessels Normal aortic root. The pulmonary artery is normal size. Normal inferior vena cava. Pericardium/Pleural No pericardial effusion. MMode/2D Measurements & Calculations LVOT diam: 1.7 cm Ao root diam: 3.0 cm LAV(MOD-sp4): 49.3 ml LVOT area: 2.2 cm2 ACS: 1.6 cm LA A4 area: 18.7 cm2 RA A4 area: 16.9 cm2 Doppler Measurements & Calculations Ao V2 max: 129.0 cm/sec LV V1 max: 110.5 cm/sec SV(LVOT): 44.9 ml Ao max P.7 mmHg LV V1 max P.9 mmHg Ao V2 mean: 89.9 cm/sec LV V1 mean P.5 mmHg Ao mean P.6 mmHg LV V1 mean: 73.0 cm/sec Ao V2 VTI: 24.8 cm LV V1 VTI: 20.8 cm SIVA(I,D): 1.8 cm2 SIVA(V,D): 1.9 cm2 Interpretation Summary Normal LV size. Left ventricular systolic function is normal. The estimated ejection fraction is 60 %. Bioprosthetic aortic valve. Mean aortic valve gradient 7 mmHg. Ordering Physician: RAVEN JEAN BAPTISTE Referring Physician: RAVEN JEAN BAPTISTE Performed By: Estevan Walsh RCS
== END ==
DX: Z95.2 Presence of prosthetic heart valve (principal)
CPT/HCPCS: 93308

== ENCOUNTER 2018-01-22 11:04 | Inpatient (IN) | payer MEDICARE, OTHER, SELFPAY ==
[2018-01-22] VITALS (7 sets, daily range): BP systolic 110–151; BP diastolic 63–87; PULSE 78–135; RESP 16–24; TEMP 37.1–37.9; O2SAT 93–100; BMI 22.4; BMI 22.5
--- NOTE | 2018-01-22 11:36 | ED.VISSUMM ---
- ER Visit Summary Date of Service: 01/22/18 Chief Complaint: Bright red blood rectal bleeding History of Present Illness: The patient is a 77 F history of coronary disease with cardiac stents a recent double bypass and valve replaced at [facility]. Patient states today she has had vital 6 episodes of small amount of bright red rectal bleeding. The only blood thinner she is on his baby aspirin. She denies any other oral anticoagulation. She denies any melena. No hematemesis. In the past she has had prior hemorrhoid repair surgery. She denies any abdominal pain. Physical Examination: Older female. No acute distress. Vital signs are stable. Afebrile. H EENT exam unremarkable. Neck nontender. Lungs clear to auscultation. Heart regular rhythm rate about 100 no murmur. Abdomen soft and nontender. Normal bowel sounds. No peritoneal signs. Rectal exam shows a few external hemorrhoids. They are nontender. They are not bleeding. They are not thrombosed. On the rectal exam she has no appreciable mass. There is currently no stool and no blood or melena. She is moving all 4 extremities. Neurologically she is awake and alert with no focal motor deficits. Test Results: CBC shows a white count of 12. Hemoglobin is 13.5 typically she runs between 13 and 14. Normal platelets. Electrolytes unremarkable. Normal BUN and creatinine. Normal gap. Emergency Department Course and Treatment: Patient with bright red blood rectal bleeding. Patient has been doing well throughout her emergency department course. I had a long discussion with both her and the family. They live in [place]. They are concerned that if she goes home and has continued or worse rectal bleeding she will end up back in emergency department. They would prefer admission and if possible colonoscopy. Treatment Plan: I spoke to the hospitalist about admission and endoscopy. Disposition: Admission Impression: Rectal bleeding of uncertain etiology Lower GI bleed This note was generated with [employer] dictation software. It may contain incorrect words, spelling, and punctuation that were not noted in review of the chart prior to signing ED Disposition - Plan for ED Patient: Chief Complaint: GI Bleed Referrals: Linda Guerrier [Primary Care Provider] -
[2018-01-22 12:18] LABS: Hematocrit 41.2 % (37-47); Hemoglobin 13.5 g/dl (12.0-15.0); Mean Corp Hgb Conc 32.8 g/gl (32-36); Mean Corpuscular Hgb 30.3 pg (27.0-32.0); Mean Corpuscular Volume 92.4 fL (81-99); Mean Platelet Vol. 9.9 fl (6.2-12.0); Platelet Count 242 K/mm3 (150-450); RBC Distribution Width CV 14.6 % (11.6-14.6); Red Blood Count 4.46 M/mm3 (4.2-5.4); White Blood Count 12.2 K/mm3 (4.4-11.0)
[2018-01-22 12:23] LABS: Scan Indicated on CBC? Y/N NO
[2018-01-22 12:28] LABS: Anion Gap 9 (5-15); BUN 15 mg/dL (7-18); BUN/Creat Ratio 21.2 RATIO (10-20); Calcium,Total 9.1 mg/dL (8.5-10.1); Chloride 105 mmol/L (98-107); Creatinine, Serum 0.71 mg/dL (0.55-1.02); EST Glomerular Filtration Rate 85 mL/min (>60); Est Glom Filt Rate - Afr Amer 103 mL/min (>60); Estimated Creatinine Clearance 34.42 ml/min; Glucose 102 mg/dL (74-106); Potassium 4.2 mmol/L (3.5-5.1); Sodium Level 138 mmol/L (136-145)
--- NOTE | 2018-01-22 13:03 | ED.RN ---
TWO PRESSURE ULCERS NOTED, FAMILY HAS BEEN DOING WOUND CARE. PT VISITS WOUND CENTER. PER GRANDDAUGHTER, WOUNDS ARE IMPROVING. WOUNDS ON COCCYX AND RIGHT BUTTOCK, OPEN TO AIR. SEE WOUND ASSESSMENT FOR DETAILS.
--- NOTE | 2018-01-22 14:22 | NURSING ---
pt reports that flu shots make her sick= refusing at this time.
--- NOTE | 2018-01-22 14:37 | PCM.HP.STD ---
Problem List (1) H/O aortic valve replacement with tissue graft Status: Chronic Comment: AVR w/ [address] [facility] Trifecta Prosthetic Tissue Valve and CABG x DELEON-LAD, SVG-Ramus, SVG-PPLB 12/20/17 (2) Essential (primary) hypertension Status: Chronic (3) HLD (hyperlipidemia) Status: Chronic Qualifiers: Hyperlipidemia type: unspecified Qualified Code(s): E78.5 - Hyperlipidemia, unspecified (4) History of coronary artery stent placement Status: Chronic Comment: [id number] and Mid LAD w/ 2.5 x 14 mm Resolute stent and 3 x 15 mm Resolute stent 08/09/14 (5) GI bleed Status: Acute Qualifiers: GI bleed type/associated pathology: unspecified gastrointestinal hemorrhage type Qualified Code(s): K92.2 - Gastrointestinal hemorrhage, unspecified History of Present Illness Date of Admission: 01/22/18 Chief Complaint: Bright red bleeding per rectum - 1 day The patient is a 77 year old F with recent history of bovine aortic valve replacement on 12/20/17 in [facility], hypertension, hyperlipidemia who comes in with bright Red bleeding per rectum noticed this javier at about 1 AM. Patient was discharged on aspirin 162 mg p.o. daily. She started having abdominal cramps and moved her bowels about 5 times prior to admission. Stools were bright red. Denied any dizziness or palpitations or chest pain or shortness of breath. Patient has a prior history of hemorrhoids status post rubber banding more than 10 years ago. No history of abdominal surgeries. Vitals were stable temperature 98.8 F, heart rate was 103, blood pressure 145/82, respiratory rate was 24. Admitting blood work showed WBC count of 12.2, Hb 13.5, repeat was 12.6, BMP was unremarkable. Past Medical History Past Medical History (Chronic Problems): Chronic Problems (Last Reviewed 01/17/18 @ 12:23 by Alfredo Jernigan MD) H/O aortic valve replacement with tissue graft (Chronic 12/20/17) AVR w/ [address] [facility] [facility] Trifecta Prosthetic Tissue Valve and CABG x DELEON-LAD, SVG-Ramus, SVG-PPLB 12/20/17 Essential (primary) hypertension (Chronic) HLD (hyperlipidemia) (Chronic) Atherosclerosis of coronary artery of [place] heart with angina pectoris (Chronic) AVR w/ [address] [facility] [facility] Trifecta Prosthetic Tissue Valve and CABG x DELEON-LAD, SVG-Ramus, SVG-PPLB 12/22/17 [id number] and Mid LAD w/ 2.5 x 14 mm Resolute stent and 3 x 15 mm Resolute stent 08/09/14 Non-rheumatic aortic stenosis (Chronic) Old myocardial infarction (Chronic) History of coronary artery stent placement (Chronic 08/09/14) [id number] and Mid LAD w/ 2.5 x 14 mm Resolute stent and 3 x 15 mm Resolute stent 08/09/14 Medical History: Medical History (Last Reviewed 01/17/18 @ 12:23 by Alfredo Jernigan MD) Essential (primary) hypertension (Chronic) I10 HLD (hyperlipidemia) (Chronic) E78.5 Atherosclerosis of coronary artery of [place] heart with angina pectoris (Chronic) I25.119 AVR w/ [address] [facility] [facility] Trifecta Prosthetic Tissue Valve and CABG x DELEON-LAD, SVG-Ramus, SVG-PPLB 12/22/17 [id number] and Mid LAD w/ 2.5 x 14 mm Resolute stent and 3 x 15 mm Resolute stent 08/09/14 Non-rheumatic aortic stenosis (Chronic) I35.0 Old myocardial infarction (Chronic) I25.2 Allergies Penicillins Allergy (Verified 01/22/18 11:08) rash Sulfa (Sulfonamide Antibiotics) Allergy (Verified 01/22/18 11:08) rash Ujsfthv-Xtd-Lup Reductase Inhibitor Adverse Reaction (Verified 01/22/18 11:08) myalgias Home Medications: Ambulatory Orders Medication Instructions Recorded cholecalciferol (vitamin D3) 50,000 unit PO FR 12/04/17 50,000 unit capsule ascorbic acid (vitamin C) 500 mg 500 mg PO DAILY 01/17/18 tablet aspirin 81 mg tablet,delayed 162 mg PO DAILY tab 01/17/18 release losartan 50 mg tablet 50 mg PO DAILY #90 tab 01/17/18 metoprolol tartrate 50 mg tablet 50 mg PO BID #180 tab 01/17/18 Acetaminophen [Tylenol Arthritis] 650 - 1,300 mg PO Q6H PRN PRN 01/22/18 Surgical History: Surgical History (Last Reviewed 01/17/18 @ 12:23 by Alfredo Jernigan MD) H/O aortic valve replacement with tissue graft (Chronic) Onset Date: 12/20/17 Z95.4 AVR w/ [address] [facility] Trifecta Prosthetic Tissue Valve and CABG x DELEON-LAD, SVG-Ramus, SVG-PPLB 12/20/17 H/O coronary artery bypass surgery (Acute) Onset Date: 12/20/17 Z95.1 AVR w/ [address] [facility] Trifecta Prosthetic Tissue Valve and CABG x DELEON-LAD, SVG-Ramus, SVG-PPLB 12/20/17 History of coronary artery stent placement (Chronic) Onset Date: 08/09/14 Z95.5 [id number] and Mid LAD w/ 2.5 x 14 mm Resolute stent and 3 x 15 mm Resolute stent 08/09/14 History of appendectomy Z90.49 Surgical History: angioplasty, appendectomy Psychiatric History: No pertinent psych hx SALES INTERN History: No pertinent SALES INTERN history Lives: Alone Smoking Status: Never smoker Tobacco Use: Non-smoker Alcohol: None Drugs: None - *Family History Paternal Family History: Family History (Last Reviewed 01/17/18 @ 12:23 by Alfredo Jernigan MD) Father CAD (coronary artery disease) Myocardial infarction History Items: Heart Disease - CAD/RI Maternal Family History: Family History (Last Reviewed 01/17/18 @ 12:23 by Alfredo Jernigan MD) Father CAD (coronary artery disease) Myocardial infarction History Items: Cancer - Colon cancer Review of Systems Constitutional: Denies: Anorexia, Chills, Fever, Malaise, Weakness, Weight Change Eyes: Denies: Blurred vision, Cataracts, Conjunctivae Inflammation, Double vision HEENT: Denies: Difficulty Hearing, Head Aches, Hearing Changes, Sinus Congestion, Sinus Drainage Cardiovascular: Denies: Chest Pain, Claudication, Orthopnea, Palpitations, Paroxysmal Noc. Dyspnea Respiratory: Denies: Cough, Hemoptysis, Shortness of breath at rest, Shortness of breath upon exertion, Sputum production Gastrointestinal: Reports: Abdominal Pain - Abdominal cramps, Hematochezia. Denies: Constipation, Hematemesis, Nausea, Vomiting Genitourinary: Denies: Dysuria, Frequency, Hematuria, Incontinence, Nocturia Gynecological: Denies: Breast symptoms, Excessively long or heavy periods Musculoskeletal: Denies: Joint Pain, Joint stiffness, Joint swelling, Joint Tenderness Skin: Denies: Dryness, Jaundice, Rash, Wounds Neurological: Denies: Numbness, Tingling, Focal weakness Psychiatric: Denies: Anxiety, Depression, Homicidal Ideations, Suicidal Ideations Hematologic/ Lymphatic: Denies: Easy Bruising, Easy Bleeding VTE Information - Inpt Only VTE Present on Admission: No VTE Pharm Prophylaxis ordered?: Yes Patient Problems: Active and Suspected Problems (Last Reviewed 01/17/18 @ 12:23 by Alfredo Jernigan MD) GI bleed (Acute) - Physical Exam General: Alert, Oriented x3, Cooperative, No apparent distress HEENT: Atraumatic, PERRLA, EOMI, Normocephalic Neck: Supple, No JVD, Negative Carotid Bruits Lungs: Clear to auscultation, Normal air movement, - - Anterior chest wall incisional wound, clean, dry, no erythema seen Cardiovascular: Regular rate, Regular Rhythm, Normal S1, Normal S2, No murmurs Abdomen: Bowel Sounds Present, Soft, Non Tender, Non-Distended, No Hepato-splenomegaly Extremities: No edema, Tenderness - Over the left lower extremity, venous graft site, bilateral KLEBER hose on Skin: - - Incisional wounds look clean and dry Musculoskeletal: No Tenderness to Palpation of Joints or Extremities Neurological: Cranial nerves II-XII grossly intact Psych/Mental Status: Normal Affect, Appropriate Vital Signs Temp Pulse Resp BP Pulse Ox 98.9 F 110 H 16 151/63 H 99 01/22/18 14:19 01/22/18 14:19 01/22/18 14:19 01/22/18 14:19 01/22/18 14:19 Oxygen Delivery Method Room Air Weight: 53.977 kg Body Mass Index (BMI) 22.4 Laboratory Tests Past 24 Hrs 01/22/18 01/22/18 11:59 11:59 WBC 12.2 H RBC 4.46 Hgb 13.5 Hct 41.2 MCV 92.4 MCH 30.3 MCHC 32.8 RDW 14.6 RDW Differential 48.0 H Plt Count 242 MPV 9.9 Sodium 138 Potassium 4.2 Chloride 105 Carbon Dioxide 24.0 Anion Gap 9 BUN 15 Creatinine 0.71 Estim Creat Clear Calc 34.42 Est GFR (MDRD) Af Amer 103 Est GFR (MDRD) Non-Af 85 BUN/Creatinine Ratio 21.2 H Glucose 102 Calcium 9.1 Assessment/Plan All Active Problems (Last Reviewed 01/17/18 @ 12:23 by Alfredo Jernigan MD) GI bleed (Acute) H/O coronary artery bypass surgery (Acute 12/20/17) 77 year old F with recent history of bovine aortic valve replacement on 12/20/17 in [facility], hypertension, hyperlipidemia who comes in with bright Red bleeding per rectum noticed this javier at about 1 AM. 1. Acute GI bleed, likely lower GI bleed, in a patient with recent history of bovine aortic valve replacement on 12/20/17, on aspirin 162 mg p.o. daily, History of hemorrhoids, stable vitals, stable H&H Plan: Admit to [facility], trend H&H, monitor vitals, orthostatic vital every shift, type and screen, general surgery consult Discussed with Dr. Bain, patient will have colonoscopy tomorrow, bowel prep started. Discussed with Dr. Jernigan on phone, patient can be off her aspirin procedures. Will receive clindamycin preprocedure for endocarditis prophylaxis 2. CAD status post recent CABG, not on statin, on metoprolol, was on aspirin which has been held 3. Status post recent aortic valve replacement, was on aspirin 162 mg p.o. daily, withheld for now on account of GI bleed 4. Hypertension, controlled, on losartan, metoprolol 5. Hyperlipidemia, on statin 6. DVT PPx - SCDs Code Visit Inpatient E&M: 98009 Init Hosp L3
--- NOTE | 2018-01-22 14:41 | HP.PCM_ITS ---
Problem List (1) H/O aortic valve replacement with tissue graft Status: Chronic Comment: AVR w/ [address] [facility] Trifecta Prosthetic Tissue Valve and CABG x DELEON-LAD, SVG-Ramus, SVG-PPLB 12/20/17 (2) Essential (primary) hypertension Status: Chronic (3) HLD (hyperlipidemia) Status: Chronic Qualifiers: Hyperlipidemia type: unspecified Qualified Code(s): E78.5 - Hyperlipidemia, unspecified (4) History of coronary artery stent placement Status: Chronic Comment: [id number] and Mid LAD w/ 2.5 x 14 mm Resolute stent and 3 x 15 mm Resolute stent 08/09/14 (5) GI bleed Status: Acute Qualifiers: GI bleed type/associated pathology: unspecified gastrointestinal hemorrhage type Qualified Code(s): K92.2 - Gastrointestinal hemorrhage, unspecified History of Present Illness Date of Admission: 01/22/18 Chief Complaint: Bright red bleeding per rectum - 1 day The patient is a 77 year old F with recent history of bovine aortic valve replacement on 12/20/17 in [facility], hypertension, hyperlipidemia who comes in with bright Red bleeding per rectum noticed this javier at about 1 AM. Patient was discharged on aspirin 162 mg p.o. daily. She started having abdominal cramps and moved her bowels about 5 times prior to admission. Stools were bright red. Denied any dizziness or palpitations or chest pain or shortness of breath. Patient has a prior history of hemorrhoids status post rubber banding more than 10 years ago. No history of abdominal surgeries. Vitals were stable temperature 98.8 F, heart rate was 103, blood pressure 145/82, respiratory rate was 24. Admitting blood work showed WBC count of 12.2, Hb 13.5, repeat was 12.6, BMP was unremarkable. Past Medical History Past Medical History (Chronic Problems): Chronic Problems (Last Reviewed 01/17/18 @ 12:23 by Alfredo Jernigan MD) H/O aortic valve replacement with tissue graft (Chronic 12/20/17) AVR w/ [address] [facility] [facility] Trifecta Prosthetic Tissue Valve and CABG x DELEON-LAD, SVG-Ramus, SVG-PPLB 12/20/17 Essential (primary) hypertension (Chronic) HLD (hyperlipidemia) (Chronic) Atherosclerosis of coronary artery of [place] heart with angina pectoris (Chronic) AVR w/ [address] [facility] Trifecta Prosthetic Tissue Valve and CABG x DELEON-LAD, SVG-Ramus, SVG-PPLB 12/22/17 [id number] and Mid LAD w/ 2.5 x 14 mm Resolute stent and 3 x 15 mm Resolute stent 08/09/14 Non-rheumatic aortic stenosis (Chronic) Old myocardial infarction (Chronic) History of coronary artery stent placement (Chronic 08/09/14) [id number] and Mid LAD w/ 2.5 x 14 mm Resolute stent and 3 x 15 mm Resolute stent 08/09/14 Medical History: Medical History (Last Reviewed 01/17/18 @ 12:23 by Alfredo Jernigan MD) Essential (primary) hypertension (Chronic) I10 HLD (hyperlipidemia) (Chronic) E78.5 Atherosclerosis of coronary artery of [place] heart with angina pectoris (Chronic) I25.119 AVR w/ [address] [facility] Trifecta Prosthetic Tissue Valve and CABG x DELEON-LAD, SVG-Ramus, SVG-PPLB 12/22/17 [id number] and Mid LAD w/ 2.5 x 14 mm Resolute stent and 3 x 15 mm Resolute stent 08/09/14 Non-rheumatic aortic stenosis (Chronic) I35.0 Old myocardial infarction (Chronic) I25.2 Allergies Penicillins Allergy (Verified 01/22/18 11:08) rash Sulfa (Sulfonamide Antibiotics) Allergy (Verified 01/22/18 11:08) rash Xypgjjc-Aev-Hqh Reductase Inhibitor Adverse Reaction (Verified 01/22/18 11:08) myalgias Home Medications: Ambulatory Orders Medication Instructions Recorded cholecalciferol (vitamin D3) 50,000 unit PO FR 12/04/17 50,000 unit capsule ascorbic acid (vitamin C) 500 mg 500 mg PO DAILY 01/17/18 tablet aspirin 81 mg tablet,delayed 162 mg PO DAILY tab 01/17/18 release losartan 50 mg tablet 50 mg PO DAILY #90 tab 01/17/18 metoprolol tartrate 50 mg tablet 50 mg PO BID #180 tab 01/17/18 Acetaminophen [Tylenol Arthritis] 650 - 1,300 mg PO Q6H PRN PRN 01/22/18 Surgical History: Surgical History (Last Reviewed 01/17/18 @ 12:23 by Alfredo Jernigan MD) H/O aortic valve replacement with tissue graft (Chronic) Onset Date: 12/20/17 Z95.4 AVR w/ [address] [facility] Trifecta Prosthetic Tissue Valve and CABG x DELEON-LAD, SVG-Ramus, SVG-PPLB 12/20/17 H/O coronary artery bypass surgery (Acute) Onset Date: 12/20/17 Z95.1 AVR w/ [address] 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 Lives: Alone Smoking Status: Never smoker Tobacco Use: Non-smoker Alcohol: None Drugs: None - *Family History Paternal Family History: Family History (Last Reviewed 01/17/18 @ 12:23 by Alfredo Jernigan MD) Father CAD (coronary artery disease) Myocardial infarction History Items: Heart Disease - CAD/GA Maternal Family History: Family History (Last Reviewed 01/17/18 @ 12:23 by Alfredo Jernigan MD) Father CAD (coronary artery disease) Myocardial infarction History Items: Cancer - Colon cancer Review of Systems Constitutional: Denies: Anorexia, Chills, Fever, Malaise, Weakness, Weight Change Eyes: Denies: Blurred vision, Cataracts, Conjunctivae Inflammation, Double vision HEENT: Denies: Difficulty Hearing, Head Aches, Hearing Changes, Sinus Congestion, Sinus Drainage Cardiovascular: Denies: Chest Pain, Claudication, Orthopnea, Palpitations, Paroxysmal Noc. Dyspnea Respiratory: Denies: Cough, Hemoptysis, Shortness of breath at rest, Shortness of breath upon exertion, Sputum production Gastrointestinal: Reports: Abdominal Pain - Abdominal cramps, Hematochezia. Denies: Constipation, Hematemesis, Nausea, Vomiting Genitourinary: Denies: Dysuria, Frequency, Hematuria, Incontinence, Nocturia Gynecological: Denies: Breast symptoms, Excessively long or heavy periods Musculoskeletal: Denies: Joint Pain, Joint stiffness, Joint swelling, Joint Tenderness Skin: Denies: Dryness, Jaundice, Rash, Wounds Neurological: Denies: Numbness, Tingling, Focal weakness Psychiatric: Denies: Anxiety, Depression, Homicidal Ideations, Suicidal Ideations Hematologic/ Lymphatic: Denies: Easy Bruising, Easy Bleeding VTE Information - Inpt Only VTE Present on Admission: No VTE Pharm Prophylaxis ordered?: Yes Patient Problems: Active and Suspected Problems (Last Reviewed 01/17/18 @ 12:23 by Alfredo Jernigan MD) GI bleed (Acute) - Physical Exam General: Alert, Oriented x3, Cooperative, No apparent distress HEENT: Atraumatic, PERRLA, EOMI, Normocephalic Neck: Supple, No JVD, Negative Carotid Bruits Lungs: Clear to auscultation, Normal air movement, - - Anterior chest wall incisional wound, clean, dry, no erythema seen Cardiovascular: Regular rate, Regular Rhythm, Normal S1, Normal S2, No murmurs Abdomen: Bowel Sounds Present, Soft, Non Tender, Non-Distended, No Hepato- splenomegaly Extremities: No edema, Tenderness - Over the left lower extremity, venous graft site, bilateral KLEBER hose on Skin: - - Incisional wounds look clean and dry Musculoskeletal: No Tenderness to Palpation of Joints or Extremities Neurological: Cranial nerves II-XII grossly intact Psych/Mental Status: Normal Affect, Appropriate Vital Signs Temp Pulse Resp BP Pulse Ox 98.9 F 110 H 16 151/63 H 99 01/22/18 14:19 01/22/18 14:19 01/22/18 14:19 01/22/18 14:19 01/22/18 14:19 Oxygen Delivery Method Room Air Weight: 53.977 kg Body Mass Index (BMI) 22.4 Laboratory Tests Past 24 Hrs 01/22/18 01/22/18 11:59 11:59 WBC 12.2 H RBC 4.46 Hgb 13.5 Hct 41.2 MCV 92.4 MCH 30.3 MCHC 32.8 RDW 14.6 RDW Differential 48.0 H Plt Count 242 MPV 9.9 Sodium 138 Potassium 4.2 Chloride 105 Carbon Dioxide 24.0 Anion Gap 9 BUN 15 Creatinine 0.71 Estim Creat Clear Calc 34.42 Est GFR (MDRD) Af Amer 103 Est GFR (MDRD) Non-Af 85 BUN/Creatinine Ratio 21.2 H Glucose 102 Calcium 9.1 Assessment/Plan All Active Problems (Last Reviewed 01/17/18 @ 12:23 by Alfredo Jernigan MD) GI bleed (Acute) H/O coronary artery bypass surgery (Acute 12/20/17) 77 year old F with recent history of bovine aortic valve replacement on 12/20/17 in [facility], hypertension, hyperlipidemia who comes in with bright Red bleeding per rectum noticed this javier at about 1 AM. 1. Acute GI bleed, likely lower GI bleed, in a patient with recent history of bovine aortic valve replacement on 12/20/17, on aspirin 162 mg p.o. daily, History of hemorrhoids, stable vitals, stable H&H Plan: Admit to [facility], trend H&H, monitor vitals, orthostatic vital every shift, type and screen, general surgery consult Discussed with Dr. Bain, patient will have colonoscopy tomorrow, bowel prep started. Discussed with Dr. Jernigan on phone, patient can be off her aspirin procedures. Will receive clindamycin preprocedure for endocarditis prophylaxis 2. CAD status post recent CABG, not on statin, on metoprolol, was on aspirin which has been held 3. Status post recent aortic valve replacement, was on aspirin 162 mg p.o. daily, withheld for now on account of GI bleed 4. Hypertension, controlled, on losartan, metoprolol 5. Hyperlipidemia, on statin 6. DVT PPx - SCDs Code Visit Inpatient E&M: 40056 Init Hosp L3
[2018-01-22] MEDS: 0.9% Normal Saline 1,000 ML 75 ML IV (15:30)
[2018-01-22] MEDS: Electrolyte Solution/Peg's 4000 ML PO (15:45)
[2018-01-22 17:04] LABS: Hemoglobin 12.6 g/dl (12.0-15.0)
--- NOTE | 2018-01-22 18:00 | PCM.CONS.GEN ---
Problem List (1) H/O aortic valve replacement with tissue graft Status: Chronic Comment: AVR w/ [address] [facility] [facility] Trifecta Prosthetic Tissue Valve and CABG x DELEON-LAD, SVG-Ramus, SVG-PPLB 12/20/17 Reason for Consult Date of Consultation: 01/22/18 History of Present Illness: The patient is a 77 year old F White been asked to see to assist with rectal bleeding bright red blood and clots. I was notified by Dr. Lenin Treviño from the emergency room for surgical consultation and written copy of my consult will be available in the chart. 77-year-old female. Approximate 1 month ago she had bovine aortic valve replacement with coronary bypass grafting x2. This performed at [facility] She apparently performed well. By family report she has always bled very easily. At that time she was placed on aspirin 81 mg twice daily. She has had a remote history of hemorrhoid problems never bleeding just discomfort. Remotely it sounds like she had hemorrhoidal banding. She has not had a colonoscopy for many years. Yesterday evening she noted bright red blood per rectum and clots. She presented to the emergency room today which was noted to have a white count of 12.2 he will 13.5 hematocrit 41.2 platelet count 242,000 a repeat laboratory 6 hours later demonstrates a hemoglobin 12.6 and hematocrit 39. Her BUN is 15 and creatinine 0.71. She denies any abdominal pain. She complains of a sore bottom from defecating and she also has a coccygeal sacral pressure sore from her recent hospitalization at [facility]. She denies any nausea or vomiting. She states that she has had a very remote appendectomy. No other previous abdominal surgery. Past Medical History Past Medical History (Chronic Problems): Chronic Problems (Last Reviewed 01/17/18 @ 12:23 by Alfredo Jernigan MD) H/O aortic valve replacement with tissue graft (Chronic 12/20/17) AVR w/ [address] [facility] [facility] Trifecta Prosthetic Tissue Valve and CABG x DELEON-LAD, SVG-Ramus, SVG-PPLB 12/20/17 Essential (primary) hypertension (Chronic) HLD (hyperlipidemia) (Chronic) Atherosclerosis of coronary artery of [place] heart with angina pectoris (Chronic) AVR w/ [address] [facility] [facility] Trifecta Prosthetic Tissue Valve and CABG x DELEON-LAD, SVG-Ramus, SVG-PPLB 12/22/17 [id number] and Mid LAD w/ 2.5 x 14 mm Resolute stent and 3 x 15 mm Resolute stent 08/09/14 Non-rheumatic aortic stenosis (Chronic) Old myocardial infarction (Chronic) History of coronary artery stent placement (Chronic 08/09/14) [id number] and Mid LAD w/ 2.5 x 14 mm Resolute stent and 3 x 15 mm Resolute stent 08/09/14 Medical History: Medical History (Last Reviewed 01/17/18 @ 12:23 by Alfredo Jernigan MD) Essential (primary) hypertension (Chronic) I10 HLD (hyperlipidemia) (Chronic) E78.5 Atherosclerosis of coronary artery of [place] heart with angina pectoris (Chronic) I25.119 AVR w/ [address] [facility] [facility] Trifecta Prosthetic Tissue Valve and CABG x DELEON-LAD, SVG-Ramus, SVG-PPLB 12/22/17 [id number] and Mid LAD w/ 2.5 x 14 mm Resolute stent and 3 x 15 mm Resolute stent 08/09/14 Non-rheumatic aortic stenosis (Chronic) I35.0 Old myocardial infarction (Chronic) I25.2 Allergies Penicillins Allergy (Verified 01/22/18 11:08) rash Sulfa (Sulfonamide Antibiotics) Allergy (Verified 01/22/18 11:08) rash Rwsifyt-Wly-Ulr Reductase Inhibitor Adverse Reaction (Verified 01/22/18 11:08) myalgias Home Medications: Ambulatory Orders Medication Instructions Recorded cholecalciferol (vitamin D3) 50,000 unit PO FR 12/04/17 50,000 unit capsule ascorbic acid (vitamin C) 500 mg 500 mg PO DAILY 01/17/18 tablet aspirin 81 mg tablet,delayed 162 mg PO DAILY tab 01/17/18 release losartan 50 mg tablet 50 mg PO DAILY #90 tab 01/17/18 metoprolol tartrate 50 mg tablet 50 mg PO BID #180 tab 01/17/18 Acetaminophen [Tylenol Arthritis] 650 - 1,300 mg PO Q6H PRN PRN 01/22/18 Surgical History: Surgical History (Last Reviewed 01/17/18 @ 12:23 by Alfredo Jernigan MD) H/O aortic valve replacement with tissue graft (Chronic) Onset Date: 12/20/17 Z95.4 AVR w/ [address] [facility] Trifecta Prosthetic Tissue Valve and CABG x DELEON-LAD, SVG-Ramus, SVG-PPLB 12/20/17 H/O coronary artery bypass surgery (Acute) Onset Date: 12/20/17 Z95.1 AVR w/ [address] [facility] Trifecta Prosthetic Tissue Valve and CABG x DELEON-LAD, SVG-Ramus, SVG-PPLB 12/20/17 History of coronary artery stent placement (Chronic) Onset Date: 08/09/14 Z95.5 [id number] and Mid LAD w/ 2.5 x 14 mm Resolute stent and 3 x 15 mm Resolute stent 08/09/14 History of appendectomy Z90.49 Surgical History: angioplasty, appendectomy Smoking Status: Never smoker Review of Systems Constitutional: Denies: Anorexia HEENT: Denies: Dysphasia Cardiovascular: Denies: Chest Pain Respiratory: Denies: Shortness of Breath Gastrointestinal: Reports: Hematochezia. Denies: Abdominal Pain, Constipation, Diarrhea, Nausea, Melena, Vomiting Genitourinary: Denies: Dysuria Musculoskeletal: Reports: Arm Pain - Preoperative history of left arm pain Skin: Reports: - - Pressure wound coccyx Psychiatric: Denies: Anxiety Patient Problems: Active and Suspected Problems (Last Reviewed 01/17/18 @ 12:23 by Alfredo Jernigan MD) GI bleed (Acute) - Physical Exam General: Oriented x3, Cooperative, No apparent distress HEENT: Atraumatic Oral: Moist Mucosa Lungs: Clear to auscultation Cardiovascular: Regular rate, Regular Rhythm, - - Systolic click Abdomen: Bowel Sounds Present, Soft, Non Tender, Non-Distended, - - Brown stool with slight red tinge Extremities: No clubbing Musculoskeletal: - - No calf tenderness Neurological: Cranial nerves II-XII grossly intact Psych/Mental Status: Normal Affect Vital Signs Temp Pulse Resp BP Pulse Ox 98.9 F 115 H 16 136/83 H 99 01/22/18 14:19 01/22/18 17:56 01/22/18 14:19 01/22/18 17:56 01/22/18 14:19 Oxygen Delivery Method Room Air Weight: 118 lb 15.983 oz Body Mass Index (BMI) 22.4 Orthostatic Vital Signs Start: 01/22/18 17:56 Freq: q24h Status: Active Protocol: Activity Type Activity Date Activity User E-Sign Co-Sign Detail Recorded Client Recorded Date Recorded By Document 01/22/18 17:56 LD [id number] 01/22/18 17:57 LD 01/22/18 17:56 Orthostatic Vitals Standing -Blood Pressure (90/60-120/80) 110/67 -Extremity Use Right Arm -Pulse Rate (60-100) 131 H Sitting -Blood Pressure (90/60-120/80) 136/87 H -Extremity Use Right Arm -Pulse Rate (60-100) 125 H Lying -Blood Pressure (90/60-120/80) 136/83 H -Extremity Use Right Arm -Pulse Rate (60-100) 115 H Intake and Output for Last 24 Hours 01/20/18 01/21/18 01/22/18 23:59 23:59 23:59 Intake Total 2851 / 2851 Balance 2851 / 2851 Laboratory Tests Past 24 Hrs 01/22/18 01/22/18 01/22/18 11:59 11:59 11:59 WBC 12.2 H RBC 4.46 Hgb 13.5 Hct 41.2 MCV 92.4 MCH 30.3 MCHC 32.8 RDW 14.6 RDW Differential 48.0 H Plt Count 242 MPV 9.9 Sodium 138 Potassium 4.2 Chloride 105 Carbon Dioxide 24.0 Anion Gap 9 BUN 15 Creatinine 0.71 Estim Creat Clear Calc 34.42 Est GFR (MDRD) Af Amer 103 Est GFR (MDRD) Non-Af 85 BUN/Creatinine Ratio 21.2 H Glucose 102 Calcium 9.1 Blood Type A POSITIVE Antibody Screen NEGATIVE 01/22/18 16:06 WBC RBC Hgb 12.6 Hct 39.0 MCV MCH MCHC RDW RDW Differential Plt Count MPV Sodium Potassium Chloride Carbon Dioxide Anion Gap BUN Creatinine Estim Creat Clear Calc Est GFR (MDRD) Af Amer Est GFR (MDRD) Non-Af BUN/Creatinine Ratio Glucose Calcium Blood Type Antibody Screen Assessment/Plan All Active Problems (Last Reviewed 01/17/18 @ 12:23 by Alfredo Jernigan MD) GI bleed (Acute) H/O coronary artery bypass surgery (Acute 12/20/17) Rectal bleeding of undetermined etiology. The patient has a history of very free bleeding. She has been recently placed on aspirin 81 mg twice daily. This actually may be etiologic to her bleeding. She has a newly placed aortic valve replacement and cardiac bypass x2. Her rover tender Dr. Alfredo Jernigan has been contacted and recommends temporarily holding the aspirin. The patient is allergic to penicillin and sulfa. We will provide clindamycin as preintervention antibiotic. The patient is undergoing a bowel prep. I am recommending a colonoscopy with possible biopsy or polypectomy is indicated. She has had an opportunity to ask and have questions answered. We will try to proceed tomorrow utilizing monitored anesthesia care. I appreciate the opportunity of assisting with her surgical management. Matias Bain M.D., F.A.C.S.
--- NOTE | 2018-01-22 18:04 | CON.PCM_ITS ---
Problem List (1) H/O aortic valve replacement with tissue graft Status: Chronic Comment: AVR w/ [address] [facility] [facility] Trifecta Prosthetic Tissue Valve and CABG x DELEON-LAD, SVG-Ramus, SVG-PPLB 12/20/17 Reason for Consult Date of Consultation: 01/22/18 History of Present Illness: The patient is a 77 year old F White been asked to see to assist with rectal bleeding bright red blood and clots. I was notified by Dr. Lenin Treviño from the emergency room for surgical consultation and written copy of my consult will be available in the chart. 77-year-old female. Approximate 1 month ago she had bovine aortic valve replacement with coronary bypass grafting x2. This performed at [facility] She apparently performed well. By family report she has always bled very easily. At that time she was placed on aspirin 81 mg twice daily. She has had a remote history of hemorrhoid problems never bleeding just discomfort. Remotely it sounds like she had hemorrhoidal banding. She has not had a colonoscopy for many years. Yesterday evening she noted bright red blood per rectum and clots. She presented to the emergency room today which was noted to have a white count of 12.2 he will 13.5 hematocrit 41.2 platelet count 242,000 a repeat laboratory 6 hours later demonstrates a hemoglobin 12.6 and hematocrit 39. Her BUN is 15 and creatinine 0.71. She denies any abdominal pain. She complains of a sore bottom from defecating and she also has a coccygeal sacral pressure sore from her recent hospitalization at [facility]. She denies any nausea or vomiting. She states that she has had a very remote appendectomy. No other previous abdominal surgery. Past Medical History Past Medical History (Chronic Problems): Chronic Problems (Last Reviewed 01/17/18 @ 12:23 by Alfredo Jernigan MD) H/O aortic valve replacement with tissue graft (Chronic 12/20/17) AVR w/ [address] [facility] [facility] Trifecta Prosthetic Tissue Valve and CABG x DELEON-LAD, SVG-Ramus, SVG-PPLB 12/20/17 Essential (primary) hypertension (Chronic) HLD (hyperlipidemia) (Chronic) Atherosclerosis of coronary artery of [place] heart with angina pectoris (Chronic) AVR w/ [address] [facility] [facility] Trifecta Prosthetic Tissue Valve and CABG x DELEON-LAD, SVG-Ramus, SVG-PPLB 12/22/17 [id number] and Mid LAD w/ 2.5 x 14 mm Resolute stent and 3 x 15 mm Resolute stent 08/09/14 Non-rheumatic aortic stenosis (Chronic) Old myocardial infarction (Chronic) History of coronary artery stent placement (Chronic 08/09/14) [id number] and Mid LAD w/ 2.5 x 14 mm Resolute stent and 3 x 15 mm Resolute stent 08/09/14 Medical History: Medical History (Last Reviewed 01/17/18 @ 12:23 by Alfredo Jernigan MD) Essential (primary) hypertension (Chronic) I10 HLD (hyperlipidemia) (Chronic) E78.5 Atherosclerosis of coronary artery of [place] heart with angina pectoris (Chronic) I25.119 AVR w/ [address] [facility] Trifecta Prosthetic Tissue Valve and CABG x DELEON-LAD, SVG-Ramus, SVG-PPLB 12/22/17 [id number] and Mid LAD w/ 2.5 x 14 mm Resolute stent and 3 x 15 mm Resolute stent 08/09/14 Non-rheumatic aortic stenosis (Chronic) I35.0 Old myocardial infarction (Chronic) I25.2 Allergies Penicillins Allergy (Verified 01/22/18 11:08) rash Sulfa (Sulfonamide Antibiotics) Allergy (Verified 01/22/18 11:08) rash Eyowwqd-Svz-Lec Reductase Inhibitor Adverse Reaction (Verified 01/22/18 11:08) myalgias Home Medications: Ambulatory Orders Medication Instructions Recorded cholecalciferol (vitamin D3) 50,000 unit PO FR 12/04/17 50,000 unit capsule ascorbic acid (vitamin C) 500 mg 500 mg PO DAILY 01/17/18 tablet aspirin 81 mg tablet,delayed 162 mg PO DAILY tab 01/17/18 release losartan 50 mg tablet 50 mg PO DAILY #90 tab 01/17/18 metoprolol tartrate 50 mg tablet 50 mg PO BID #180 tab 01/17/18 Acetaminophen [Tylenol Arthritis] 650 - 1,300 mg PO Q6H PRN PRN 01/22/18 Surgical History: Surgical History (Last Reviewed 01/17/18 @ 12:23 by Alfredo Jernigan MD) H/O aortic valve replacement with tissue graft (Chronic) Onset Date: 12/20/17 Z95.4 AVR w/ [address] [facility] Trifecta Prosthetic Tissue Valve and CABG x DELEON-LAD, SVG-Ramus, SVG-PPLB 12/20/17 H/O coronary artery bypass surgery (Acute) Onset Date: 12/20/17 Z95.1 AVR w/ [address] [facility] Trifecta Prosthetic Tissue Valve and CABG x DELEON-LAD, SVG-Ramus, SVG-PPLB 12/20/17 History of coronary artery stent placement (Chronic) Onset Date: 08/09/14 Z95.5 SVI-JEQ-Iixn and Mid LAD w/ 2.5 x 14 mm Resolute stent and 3 x 15 mm Resolute stent 08/09/14 History of appendectomy Z90.49 Surgical History: angioplasty, appendectomy Smoking Status: Never smoker Review of Systems Constitutional: Denies: Anorexia HEENT: Denies: Dysphasia Cardiovascular: Denies: Chest Pain Respiratory: Denies: Shortness of Breath Gastrointestinal: Reports: Hematochezia. Denies: Abdominal Pain, Constipation, Diarrhea, Nausea, Melena, Vomiting Genitourinary: Denies: Dysuria Musculoskeletal: Reports: Arm Pain - Preoperative history of left arm pain Skin: Reports: - - Pressure wound coccyx Psychiatric: Denies: Anxiety Patient Problems: Active and Suspected Problems (Last Reviewed 01/17/18 @ 12:23 by Alfredo Jernigan MD) GI bleed (Acute) - Physical Exam General: Oriented x3, Cooperative, No apparent distress HEENT: Atraumatic Oral: Moist Mucosa Lungs: Clear to auscultation Cardiovascular: Regular rate, Regular Rhythm, - - Systolic click Abdomen: Bowel Sounds Present, Soft, Non Tender, Non-Distended, - - Brown stool with slight red tinge Extremities: No clubbing Musculoskeletal: - - No calf tenderness Neurological: Cranial nerves II-XII grossly intact Psych/Mental Status: Normal Affect Vital Signs Temp Pulse Resp BP Pulse Ox 98.9 F 115 H 16 136/83 H 99 01/22/18 14:19 01/22/18 17:56 01/22/18 14:19 01/22/18 17:56 01/22/18 14:19 Oxygen Delivery Method Room Air Weight: 118 lb 15.983 oz Body Mass Index (BMI) 22.4 Orthostatic Vital Signs Start: 01/22/18 17:56 Freq: q24h Status: Active Protocol: Activity Type Activity Date Activity User E-Sign Co-Sign Detail Recorded Client Recorded Date Recorded By Document 01/22/18 17:56 LD [id number] 01/22/18 17:57 LD 01/22/18 17:56 Orthostatic Vitals Standing -Blood Pressure (90/60-120/80) 110/67 -Extremity Use Right Arm -Pulse Rate (60-100) 131 H Sitting -Blood Pressure (90/60-120/80) 136/87 H -Extremity Use Right Arm -Pulse Rate (60-100) 125 H Lying -Blood Pressure (90/60-120/80) 136/83 H -Extremity Use Right Arm -Pulse Rate (60-100) 115 H Intake and Output for Last 24 Hours 01/20/18 01/21/18 01/22/18 23:59 23:59 23:59 Intake Total 2851 / 2851 Balance 2851 / 2851 Laboratory Tests Past 24 Hrs 01/22/18 01/22/18 01/22/18 11:59 11:59 11:59 WBC 12.2 H RBC 4.46 Hgb 13.5 Hct 41.2 MCV 92.4 MCH 30.3 MCHC 32.8 RDW 14.6 RDW Differential 48.0 H Plt Count 242 MPV 9.9 Sodium 138 Potassium 4.2 Chloride 105 Carbon Dioxide 24.0 Anion Gap 9 BUN 15 Creatinine 0.71 Estim Creat Clear Calc 34.42 Est GFR (MDRD) Af Amer 103 Est GFR (MDRD) Non-Af 85 BUN/Creatinine Ratio 21.2 H Glucose 102 Calcium 9.1 Blood Type A POSITIVE Antibody Screen NEGATIVE 01/22/18 16:06 WBC RBC Hgb 12.6 Hct 39.0 MCV MCH MCHC RDW RDW Differential Plt Count MPV Sodium Potassium Chloride Carbon Dioxide Anion Gap BUN Creatinine Estim Creat Clear Calc Est GFR (MDRD) Af Amer Est GFR (MDRD) Non-Af BUN/Creatinine Ratio Glucose Calcium Blood Type Antibody Screen Assessment/Plan All Active Problems (Last Reviewed 01/17/18 @ 12:23 by Alfredo Jernigan MD) GI bleed (Acute) H/O coronary artery bypass surgery (Acute 12/20/17) Rectal bleeding of undetermined etiology. The patient has a history of very free bleeding. She has been recently placed on aspirin 81 mg twice daily. This actually may be etiologic to her bleeding. She has a newly placed aortic valve replacement and cardiac bypass x2. Her repair service dispatcher Dr. Alfredo Jernigan has been contacted and recommends temporarily holding the aspirin. The patient is allergic to penicillin and sulfa. We will provide clindamycin as preintervention antibiotic. The patient is undergoing a bowel prep. I am recommending a colonoscopy with possible biopsy or polypectomy is indicated. She has had an opportunity to ask and have questions answered. We will try to proceed tomorrow utilizing monitored anesthesia care. I appreciate the opportunity of assisting with her surgical management. Matias Bain M.D., F.A.C.S.
[2018-01-22] MEDS: Metoprolol Tartrate 50 MG Tablet PO (18:34)
--- NOTE | 2018-01-22 18:48 | EKG12_ITS ---
Test Reason : PRE-OP Blood Pressure : / mmHG Vent. Rate : 096 BPM Atrial Rate : 096 BPM P-R Int : 174 ms QRS Dur : 078 ms QT Int : 366 ms P-R-T Axes : 057 073 090 degrees QTc Int : 462 ms Normal sinus rhythm Normal ECG When compared with ECG of 11-DEC-2017 05:29, Vent. rate has increased BY 32 BPM Confirmed by ERVIN LYNNE MD ([id number]), editorial writer JHOANA YUNG ([id number]) on 01/27/2018 11:03:02 AM Referred By: RAVEN JEAN BAPTISTE Confirmed By:ERVIN LYNNE MD
[2018-01-22] MEDS: Ondansetron 4 MG/2 ML Vial IV (19:46)
[2018-01-22 19:59] LABS: International Normalized Ratio 1.1; Prothrombin Time (Protime)PT. 14.4 SECONDS (11.7-14.9)
[2018-01-22 22:08] LABS: Hematocrit 38.4 % (37-47); Hemoglobin 12.1 g/dl (12.0-15.0)
[2018-01-23] VITALS (31 sets, daily range): BP systolic 94–158; BP diastolic 11–133; PULSE 86–120; RESP 16–96; TEMP 36.7–37.8; O2SAT 16–98; BMI 22.4
--- NOTE | 2018-01-23 | COLBX_PTH ---
PATIENT: BAR [facility] LOC: PCU U#:[id number] AGE/SX: 77/F ROOM: [facility] RE01/23/[address]: Dr. Swapnil Renner MD : 1940 BED: 1 DIS: 01/25/2018 SPEC #: [id number] RECD: 01/23/18 14:42 STATUS: GEMA REQ #: [id number] KAILA: 01/23/18 00:[address]: Matias Bain DEPT: SURGICAL PATHOLOGY RECD BY: Joel Jiang ENTERED: 01/23/18 14:43 SP TYPE: COLON BX OTHR DR: MD Dr. Linda Lamb MD Dr. Robert D Cebul, MD Tissues: SPLENIC FLEXURE Procedures: Surgery Specimen Level IV Comments: @ Ordering doctor for SUIV edited from to @ by LILI at 01/23/18 154 @ Submitting doctor edited from to @ by LILI at 01/23/18 1541 HEADER OPERATION: Colonoscopy PRE-OP DIAGNOSIS: Rectal bleeding TISSUE SUBMITTED: Biopsy of splenic flexure MICROSCOPIC DIAGNOSIS Splenic flexure, biopsy: Fragments of colonic mucosa with extensive ulceration and associated inflammation and focal changes consistent with ischemic colitis. Negative for malignancy. CITLALLI:amira 01/24/18 COMMENT Correlation with clinical, endoscopic findings and appropriate follow up are necessary. Case has been reviewed in consultation with Dr. Eckert who concurs with the above diagnosis. IDC:AM MICROSCOPIC DESCRIPTION Slides are reviewed. GROSS DESCRIPTION Received in fixative is one container labeled with the patient's name and designated biopsy of splenic flexure. The specimen consists of multiple irregular fragments of light quintero soft tissue that in aggregate measure 0.5 x 0.5 x 0.1 cm. The specimen is totally submitted in one cassette. / CITLALLI:amira 01/23/18 TC:5 CPT: 89177
[2018-01-23] MEDS: 0.9% Normal Saline 1,000 ML 75 ML IV (02:29)
--- NOTE | 2018-01-23 05:31 | PCM.PN.SRG ---
Patient Problems: Active and Suspected Problems (Last Reviewed 01/17/18 @ 12:23 by Alfredo Jernigan MD) GI bleed (Acute) Subjective: No complaints, trying to get some rest No abdominal pain - Physical Exam Vital Signs Temp Pulse Resp BP Pulse Ox 98.5 F 117 H 16 143/77 H 94 01/23/18 04:00 01/23/18 04:23 01/23/18 04:00 01/23/18 04:23 01/23/18 04:00 Oxygen Delivery Method Room Air Weight: 118 lb 15.983 oz Body Mass Index (BMI) 22.4 Orthostatic Vital Signs Start: 01/22/18 17:56 Freq: q24h Status: Active Protocol: Activity Type Activity Date Activity User E-Sign Co-Sign Detail Recorded Client Recorded Date Recorded By Document 01/23/18 04:23 JUDITH [id number] 01/23/18 04:24 [place] 01/23/18 04:23 Orthostatic Vitals Standing -Blood Pressure (90/60-120/80) 113/69 -Extremity Use Left Arm -Pulse Rate (60-100) 117 H Sitting -Blood Pressure (90/60-120/80) 117/77 -Extremity Use Left Arm -Pulse Rate (60-100) 113 H Lying -Blood Pressure (90/60-120/80) 143/77 H -Extremity Use Right Arm -Pulse Rate (60-100) 117 H Intake and Output for Last 24 Hours 01/21/18 01/22/18 01/23/18 23:59 23:59 23:59 Intake Total 2851 / 2851 4810 / 4810 Balance 2851 / 2851 4810 / 4810 Laboratory Tests Past 24 Hrs 01/22/18 01/22/18 01/22/18 11:59 11:59 11:59 WBC 12.2 H RBC 4.46 Hgb 13.5 Hct 41.2 MCV 92.4 MCH 30.3 MCHC 32.8 RDW 14.6 RDW Differential 48.0 H Plt Count 242 MPV 9.9 PT INR Sodium 138 Potassium 4.2 Chloride 105 Carbon Dioxide 24.0 Anion Gap 9 BUN 15 Creatinine 0.71 Estim Creat Clear Calc 34.42 Est GFR (MDRD) Af Amer 103 Est GFR (MDRD) Non-Af 85 BUN/Creatinine Ratio 21.2 H Glucose 102 Calcium 9.1 Blood Type A POSITIVE Antibody Screen NEGATIVE 01/22/18 01/22/18 01/22/18 16:06 19:36 21:52 WBC RBC Hgb 12.6 12.1 Hct 39.0 38.4 MCV MCH MCHC RDW RDW Differential Plt Count MPV PT 14.4 INR 1.1 Sodium Potassium Chloride Carbon Dioxide Anion Gap BUN Creatinine Estim Creat Clear Calc Est GFR (MDRD) Af Amer Est GFR (MDRD) Non-Af BUN/Creatinine Ratio Glucose Calcium Blood Type Antibody Screen Medical Necessity - Tobacco Use Smoking Status: Never smoker Tobacco Use: Non-smoker Assessment/Plan All Active Problems (Last Reviewed 01/17/18 @ 12:23 by Alfredo Jernigan MD) GI bleed (Acute) H/O coronary artery bypass surgery (Acute 12/20/17) Colonoscopy scheduled for later today
--- NOTE | 2018-01-23 05:55 | RAD_ITS ---
STUDY: X-RAY CHEST REASON FOR EXAM: Female, 77 years old. Pre-op. Status post cardiac surgery/aortic valve x3 weeks. TECHNIQUE: Single AP portable view of the chest. COMPARISON: . FINDINGS: There is mild plate like atelectasis in the lung bases bilaterally. There are no demonstrated pulmonary infiltrates. There is no demonstrated pleural abnormality. Normal size heart. There are sternotomy wires. There is a coronary artery stent. Normal mediastinum and steven. Normal visualized pulmonary arteries. Normal visualized aortic arch and descending thoracic aorta. Normal visualized thoracic spine. Normal visualized ribs, clavicles, and shoulders. There is no demonstrated abnormality of the visualized soft tissue structures of the upper abdomen. RAD/Chest 1 View (Portable) IMPRESSION: No evidence for acute cardiopulmonary pathology. Electronically Signed: Sudhakar Storm MD at 4:38 EDT , Service support ,
[2018-01-23 06:35] LABS: Absolute Lymphocyte Count 1.05 X10^3/ul (0.83-4.51); Absolute Neutrophil Count 8.3 X10^3/uL (2.0-7.7); Basophil# 0.02 X10^3/uL; Basophil% 0.2 % (0-1); Eosinophil# 0.09 X10^3/uL; Eosinophils% 0.9 % (0-5); Hematocrit 35.7 % (37-47); Hemoglobin 11.5 g/dl (12.0-15.0); Lymphocyte # 1.05 X10^3/ul (4.0); Lymphocyte % 10.3 % (19-41); Mean Corp Hgb Conc 32.2 g/gl (32-36); Mean Corpuscular Hgb 29.9 pg (27.0-32.0); Mean Platelet Vol. 9.8 fl (6.2-12.0); Monocyte# 0.72 X10^3/uL; Neutrophil # 8.32 X10^3/uL (2.7-7.7); Neutrophil % 81.3 % (47-70); Platelet Count 199 K/mm3 (150-450); RBC Distribution Width CV 14.3 % (11.6-14.6); RBC Distribution Width SD 47.4 fl (35.1-43.9); Red Blood Count 3.84 M/mm3 (4.2-5.4); White Blood Count 10.2 K/mm3 (4.4-11.0)
[2018-01-23 06:37] LABS: POSITIVE COUNT NO; POSITIVE DIFFERENTIAL NO; POSITIVE MORPHOLOGY NO
[2018-01-23 06:55] LABS: Anion Gap 9 (5-15); BUN 10 mg/dL (7-18); BUN/Creat Ratio 17.4 RATIO (10-20); Calcium,Total 8.3 mg/dL (8.5-10.1); Chloride 108 mmol/L (98-107); Creatinine, Serum 0.57 mg/dL (0.55-1.02); EST Glomerular Filtration Rate 108 mL/min (>60); Est Glom Filt Rate - Afr Amer 130 mL/min (>60); Estimated Creatinine Clearance 34.42 ml/min; Glucose 99 mg/dL (74-106); Potassium 3.9 mmol/L (3.5-5.1); Sodium Level 141 mmol/L (136-145)
[2018-01-23] MEDS: Metoprolol Tartrate 50 MG Tablet PO ×2 (08:37→21:49)
--- NOTE | 2018-01-23 09:37 | NURSING ---
wound photo: sacrum/right upper buttock
--- NOTE | 2018-01-23 09:54 | NURSING ---
[facility] called in and states that they see patient and just found out she was in hospital. Notified that they have been seeing her at home.
--- NOTE | 2018-01-23 12:29 | NURSING ---
pt down to AC for pre-colonoscopy. report given to JENNA Ferraro. family at bedside.
--- NOTE | 2018-01-23 13:55 | NURSING ---
Addendum entered by Ceasar Pérez 01/23/18 14:07: Original Note: Dr Bain called floor requesting that hospitalist taking care of this patient be in contact with him. Paged operating requesting that she facilitate communication between Dr Bain and Dr Nash per Dr Bain's request. Tool And Gauge Inspector aware and states that she will complete task described
--- NOTE | 2018-01-23 14:21 | PCM.PN.HOSP ---
Patient Problems: Active and Suspected Problems (Last Reviewed 01/17/18 @ 12:23 by Alfredo Jernigan MD) GI bleed (Acute) Subjective: Patient was seen and examined. Drank GoLYTELY overnight. Stools were clear except for some specks of blood. Denies any dizziness or palpitations or shortness of breath. Copy this afternoon, discussed with Dr. Bain, patient has ischemic colitis, recommended medical management. Discussed with patient's primary release of information clerk, Dr. Jernigan, recommended stopping aspirin, continuing to monitor vitals. Objective: Physical Exam General: Alert, Oriented x3, Cooperative, No apparent distress HEENT: Atraumatic, PERRLA, EOMI, Normocephalic Neck: Supple, No JVD, Negative Carotid Bruits Lungs: Clear to auscultation, Normal air movement, - - Anterior chest wall incisional wound, clean, dry, no erythema seen Cardiovascular: Regular rate, Regular Rhythm, Normal S1, Normal S2, No murmurs Abdomen: Bowel Sounds Present, Soft, Non Tender, Non-Distended, No Hepato-splenomegaly Extremities: No edema, Tenderness - Over the left lower extremity, venous graft site, bilateral KLEBER hose on Skin: - - Incisional wounds look clean and dry Musculoskeletal: No Tenderness to Palpation of Joints or Extremities Neurological: Cranial nerves II-XII grossly intact Psych/Mental Status: Normal Affect, Appropriate Vitals/I&O's: Vital Signs Temp Pulse Resp BP Pulse Ox 98.3 F 91 16 94/43 L 94 01/23/18 13:56 01/23/18 14:14 01/23/18 14:14 01/23/18 14:14 01/23/18 14:14 Oxygen Flow Rate (L/min) 4 Oxygen Delivery Method Nasal Cannula Weight: 53.997 kg Body Mass Index (BMI) 22.4 Orthostatic Vital Signs Start: 01/22/18 17:56 Freq: q24h Status: Active Protocol: Activity Type Activity Date Activity User E-Sign Co-Sign Detail Recorded Client Recorded Date Recorded By Document 01/23/18 04:23 CA [id number] 01/23/18 04:24 KS 01/23/18 04:23 Orthostatic Vitals Standing -Blood Pressure (90/60-120/80 mm Hg) 113/69 -Extremity Use Left Arm -Pulse Rate (60-100 beats/min) 117 H Sitting -Blood Pressure (90/60-120/80 mm Hg) 117/77 -Extremity Use Left Arm -Pulse Rate (60-100 beats/min) 113 H Lying -Blood Pressure (90/60-120/80 mm Hg) 143/77 H -Extremity Use Right Arm -Pulse Rate (60-100 beats/min) 117 H Intake and Output for Last 24 Hours 01/21/18 01/22/18 01/23/18 23:59 23:59 23:59 Intake Total 2851 / 2851 5680 / 5680 Balance 2851 / 2851 5680 / 5680 Laboratory Results 01/22/18 11:59: Blood Type A POSITIVE, Antibody Screen NEGATIVE 01/22/18 16:06: Hgb 12.6, Hct 39.0 01/22/18 19:36: PT 14.4, INR 1.1 01/22/18 21:52: Hgb 12.1, Hct 38.4 01/23/18 06:08: WBC 10.2, RBC 3.84 L, Hgb 11.5 L, Hct 35.7 L, MCV 93.0, MCH 29.9, MCHC 32.2, RDW 14.3, RDW Differential 47.4 H, Plt Count 199, MPV 9.8, Immature Gran % (Auto) 0.300, Neut % (Auto) 81.3 H, Lymph % (Auto) 10.3 L, [place] % (Auto) 7.0, Eos % (Auto) 0.9, Baso % (Auto) 0.2, Absolute Neuts (auto) 8.3 H, Absolute Lymphs (auto) 1.05, Total Counted Not Reportable 01/23/18 06:08: Sodium 141, Potassium 3.9, Chloride 108 H, Carbon Dioxide 24.0, Anion Gap 9, BUN 10, Creatinine 0.57, Estim Creat Clear Calc 34.42, Est GFR (MDRD) Af Amer 130, Est GFR (MDRD) Non-Af 108, BUN/Creatinine Ratio 17.4, Glucose 99, Calcium 8.3 L Current Medications Acetaminophen (Tylenol) 650 mg PO Q6H PRN PRN PRN Reason: Mild Pain (1-3)/Temp > 100.7 F Ascorbic Acid (Vitamin C) 500 mg PO DAILY GEORGES Bisacodyl (Dulcolax) 5 mg PO DAILY PRN PRN PRN Reason: Constipation Ergocalciferol (Vitamin D) 50,000 unit PO Q7D [facility] Clindamycin Phosphate 900 mg/ (Dextrose) 106 mls @ 75 mls/hr IV X1 ONE Stop: 01/23/18 14:30 Losartan Potassium (Cozaar) 50 mg PO DAILY [facility] Magnesium Hydroxide (Milk Of Magnesia) 30 ml PO DAILY PRN PRN PRN Reason: Constipation Metoprolol Tartrate (Lopressor (Beta Stephan)) 50 mg PO BID [facility] Last Admin: 01/23/18 08:37 Dose: 50 mg Nutritional Formula (Lactose Free) (Ensure Clear) 120 ml PO 4X/DAY [facility] Last Admin: 01/23/18 08:35 Dose: Not Given Ondansetron HCl (Zofran) 4 mg IV Q8H PRN PRN PRN Reason: NAUSEA Last Admin: 01/22/18 19:46 Dose: 4 mg Psyllium Hydrophilic Mucilloid (Metamucil) 1 packet PO DAILY PRN PRN PRN Reason: CONSTIPATION Sodium Chloride () 5 - 30 ml IV UD PRN PRN Reason: SALINE FLUSH Medical Necessity - Tobacco Use Smoking Status: Never smoker Tobacco Use: Non-smoker Assessment/Plan All Active Problems (Last Reviewed 01/17/18 @ 12:23 by Alfredo Jernigan MD) GI bleed (Acute) H/O coronary artery bypass surgery (Acute 12/20/17) 77 year old F with recent history of bovine aortic valve replacement on 12/20/17 in [facility], hypertension, hyperlipidemia who comes in with bright red bleeding per rectum noticed this javier at about 1 AM. 1. Acute GI bleed secondary to ischemic colitis in a patient with cardiovascular factors, recent history of bovine aortic valve replacement on 12/20/17, was on aspirin 162 mg p.o. daily, History of hemorrhoids, Status post colonoscopy, findings show ischemic colitis, Stable vitals, stable H&H discussed with surgeon and primary release of information clerk, would continue with medical management, stop aspirin for 1-2 weeks, reevaluate, will continue to trend H&H 2. CAD status post recent CABG, not on statin, on metoprolol, off aspirin 3. Status post recent aortic valve replacement, off aspirin 4. Hypertension, controlled, on losartan, metoprolol, will continue to monitor 5. Hyperlipidemia, on statin 6. DVT PPx - SCDs 7. Disposition: Possible discharge in 24-48 hours if patient remain stable. Code Visit Inpatient E&M: 77730 Subs Hosp L2
--- NOTE | 2018-01-23 14:28 | PN_ITS ---
Patient Problems: Active and Suspected Problems (Last Reviewed 01/17/18 @ 12:23 by Alfredo Jernigan MD) GI bleed (Acute) Subjective: Patient was seen and examined. Drank GoLYTELY overnight. Stools were clear except for some specks of blood. Denies any dizziness or palpitations or shortness of breath. Copy this afternoon, discussed with Dr. Bain, patient has ischemic colitis, recommended medical management. Discussed with patient's primary reporting manager, Dr. Jernigan, recommended stopping aspirin, continuing to monitor vitals. Objective: Physical Exam General: Alert, Oriented x3, Cooperative, No apparent distress HEENT: Atraumatic, PERRLA, EOMI, Normocephalic Neck: Supple, No JVD, Negative Carotid Bruits Lungs: Clear to auscultation, Normal air movement, - - Anterior chest wall inci sional wound, clean, dry, no erythema seen Cardiovascular: Regular rate, Regular Rhythm, Normal S1, Normal S2, No murmurs Abdomen: Bowel Sounds Present, Soft, Non Tender, Non-Distended, No Hepato- splenomegaly Extremities: No edema, Tenderness - Over the left lower extremity, venous graft site, bilateral KLEBER hose on Skin: - - Incisional wounds look clean and dry Musculoskeletal: No Tenderness to Palpation of Joints or Extremities Neurological: Cranial nerves II-XII grossly intact Psych/Mental Status: Normal Affect, Appropriate Vitals/I&O's: Vital Signs Temp Pulse Resp BP Pulse Ox 98.3 F 91 16 94/43 L 94 01/23/18 13:56 01/23/18 14:14 01/23/18 14:14 01/23/18 14:14 01/23/18 14:14 Oxygen Flow Rate (L/min) 4 Oxygen Delivery Method Nasal Cannula Weight: 53.997 kg Body Mass Index (BMI) 22.4 Orthostatic Vital Signs Start: 01/22/18 17:56 Freq: q24h Status: Active Protocol: Activity Type Activity Date Activity User E-Sign Co-Sign Detail Recorded Client Recorded Date Recorded By Document 01/23/18 04:23 IN [id number] 01/23/18 04:24 [place] 01/23/18 04:23 Orthostatic Vitals Standing -Blood Pressure (90/60-120/80 mm Hg) 113/69 -Extremity Use Left Arm -Pulse Rate (60-100 beats/min) 117 H Sitting -Blood Pressure (90/60-120/80 mm Hg) 117/77 -Extremity Use Left Arm -Pulse Rate (60-100 beats/min) 113 H Lying -Blood Pressure (90/60-120/80 mm Hg) 143/77 H -Extremity Use Right Arm -Pulse Rate (60-100 beats/min) 117 H Intake and Output for Last 24 Hours 01/21/18 01/22/18 01/23/18 23:59 23:59 23:59 Intake Total 2851 / 2851 5680 / 5680 Balance 2851 / 2851 5680 / 5680 Laboratory Results 01/22/18 11:59: Blood Type A POSITIVE, Antibody Screen NEGATIVE 01/22/18 16:06: Hgb 12.6, Hct 39.0 01/22/18 19:36: PT 14.4, INR 1.1 01/22/18 21:52: Hgb 12.1, Hct 38.4 01/23/18 06:08: WBC 10.2, RBC 3.84 L, Hgb 11.5 L, Hct 35.7 L, MCV 93.0, MCH 29.9, MCHC 32.2, RDW 14.3, RDW Differential 47.4 H, Plt Count 199, MPV 9.8, Immature Gran % (Auto) 0.300, Neut % (Auto) 81.3 H, Lymph % (Auto) 10.3 L, [place] % (Auto) 7.0, Eos % (Auto) 0.9, Baso % (Auto) 0.2, Absolute Neuts (auto) 8.3 H, Absolute Lymphs (auto) 1.05, Total Counted Not Reportable 01/23/18 06:08: Sodium 141, Potassium 3.9, Chloride 108 H, Carbon Dioxide 24.0, Anion Gap 9, BUN 10, Creatinine 0.57, Estim Creat Clear Calc 34.42, Est GFR (MDRD) Af Amer 130, Est GFR (MDRD) Non-Af 108, BUN/Creatinine Ratio 17.4, Glucose 99, Calcium 8.3 L Current Medications Acetaminophen (Tylenol) 650 mg PO Q6H PRN PRN PRN Reason: Mild Pain (1-3)/Temp > 100.7 F Ascorbic Acid (Vitamin C) 500 mg PO DAILY [place] Bisacodyl (Dulcolax) 5 mg PO DAILY PRN PRN PRN Reason: Constipation Ergocalciferol (Vitamin D) 50,000 unit PO Q7D [facility] Clindamycin Phosphate 900 mg/ (Dextrose) 106 mls @ 75 mls/hr IV X1 ONE Stop: 01/23/18 14:30 Losartan Potassium (Cozaar) 50 mg PO DAILY [facility] Magnesium Hydroxide (Milk Of Magnesia) 30 ml PO DAILY PRN PRN PRN Reason: Constipation Metoprolol Tartrate (Lopressor (Beta Stephan)) 50 mg PO BID [facility] Last Admin: 01/23/18 08:37 Dose: 50 mg Nutritional Formula (Lactose Free) (Ensure Clear) 120 ml PO 4X/DAY [facility] Last Admin: 01/23/18 08:35 Dose: Not Given Ondansetron HCl (Zofran) 4 mg IV Q8H PRN PRN PRN Reason: NAUSEA Last Admin: 01/22/18 19:46 Dose: 4 mg Psyllium Hydrophilic Mucilloid (Metamucil) 1 packet PO DAILY PRN PRN PRN Reason: CONSTIPATION Sodium Chloride () 5 - 30 ml IV UD PRN PRN Reason: SALINE FLUSH Medical Necessity - Tobacco Use Smoking Status: Never smoker Tobacco Use: Non-smoker Assessment/Plan All Active Problems (Last Reviewed 01/17/18 @ 12:23 by Alfredo Jernigan MD) GI bleed (Acute) H/O coronary artery bypass surgery (Acute 12/20/17) 77 year old F with recent history of bovine aortic valve replacement on 12/20/[address] [facility], hypertension, hyperlipidemia who comes in with bright red bleeding per rectum noticed this javier at about 1 AM. 1. Acute GI bleed secondary to ischemic colitis in a patient with cardiovascular factors, recent history of bovine aortic valve replacement on 12/20/17, was on aspirin 162 mg p.o. daily, History of hemorrhoids, Status post colonoscopy, findings show ischemic colitis, Stable vitals, stable H&H discussed with surgeon and primary reporting manager, would continue with medical management, stop aspirin for 1-2 weeks, reevaluate, will continue to trend H&H 2. CAD status post recent CABG, not on statin, on metoprolol, off aspirin 3. Status post recent aortic valve replacement, off aspirin 4. Hypertension, controlled, on losartan, metoprolol, will continue to monitor 5. Hyperlipidemia, on statin 6. DVT PPx - SCDs 7. Disposition: Possible discharge in 24-48 hours if patient remain stable. Code Visit Inpatient E&M: 49427 Subs Hosp L2
--- NOTE | 2018-01-23 14:35 | RAD_ITS ---
STUDY: X-RAY CHEST REASON FOR EXAM: Female, 77 years old. Shortness of breath and cough TECHNIQUE: Single AP portable view of the chest. # of Images: 1 COMPARISON: 01/23/2018 FINDINGS: EKG leads overlie the chest The lungs are clear and expanded. There is no demonstrated pleural abnormality. There are calcifications of the coronary arteries. Normal mediastinum and steven. Normal visualized pulmonary arteries. There is atherosclerotic calcification of the aortic arch with tortuosity. There are diffuse degenerative changes of the visualized thoracic spine. Normal visualized ribs, clavicles, and shoulders. There is no demonstrated abnormality of the visualized soft tissue structures of the upper abdomen. RAD/Chest 1 View (Portable) IMPRESSION: No acute pulmonary process Electronically Signed: Antoni Porter MD at 16:05 EDT , Service support ,
[2018-01-23] MEDS: Ipratropium/Albuterol Sulfate 3 ML AMPUL.NEB INHALATION ×2 (14:49→19:45)
--- NOTE | 2018-01-23 16:20 | NURSING ---
report given to JENNA Tineo on PCU for patient transfer post-colonoscopy.
--- NOTE | 2018-01-23 17:50 | NURSING ---
Attempted IV start x1 without success. Patient is a very difficult stick. Updated set up and charger of same. Catarina, charge nurse to attempt IV start.
--- NOTE | 2018-01-23 18:24 | OP.ENDO_ITS ---
Patient Name: Wendy Thao Procedure Date: 01/23/2018 1:22 PM Date of : 1940 Age: 77 Procedure: Colonoscopy Indications: Rectal bleeding Providers: Matias Bain MD Medicines: See the Anesthesia note for documentation of the administered medications Patient Profile: Last Colonoscopy: more than 10 years ago. Complications: Oversedation Procedure: Pre-Anesthesia Assessment: - Prior to the procedure, a History and Physical was performed, and patient medications and allergies were reviewed. The patient's tolerance of previous anesthesia was also reviewed. The risks and benefits of the procedure and the sedation options and risks were discussed with the patient. All questions were answered, and informed consent was obtained. Prior Anticoagulants: The patient has taken aspirin, last dose was 10 days prior to procedure. ASA Grade Assessment: III - A patient with severe systemic disease. After reviewing the risks and benefits, the patient was deemed in satisfactory condition to undergo the procedure. After I obtained informed consent, the scope was passed under direct vision. Throughout the procedure, the patient's blood pressure, pulse, and oxygen saturations were monitored continuously. The colonoscope was introduced through the anus and advanced to the cecum, identified by appendiceal orifice and ileocecal valve. The colonoscopy was performed without difficulty. The patient tolerated the procedure fairly well. The quality of the bowel preparation was good. The ileocecal valve was photographed. Scope In: 1:31:57 PM Scope Withdrawal Time 0 hours 4 minutes 44 seconds Scope Out: 1:42:15 PM Total Procedure Duration Time 0 hours 10 minutes 18 seconds Findings: Hemorrhoids were found on perianal exam. A continuous area of bleeding ulcerated mucosa with stigmata of recent bleeding was present at the splenic flexure. Biopsies were taken with a cold forceps for histology. Scattered diverticula were found in the sigmoid colon. The exam was otherwise without abnormality. Impression: - Hemorrhoids found on perianal exam. - Mucosal ulceration. Biopsied. Findings consistent with ischemic colitis of the splenic flexure. - Diverticulosis in the sigmoid colon. - The examination was otherwise normal. Recommendation: - Observe patient in admission. Medical treatment of ischemic colitis. Cardiology consultation - Clear liquid diet. - Continue present medications. - Telephone my office for pathology results in 1 week. - Repeat colonoscopy in 5 years for surveillance based on pathology results. Procedure Code(s): --- Professional --- 63372, Colonoscopy, flexible; with biopsy, single or multiple Diagnosis Code(s): --- Professional --- K64.9, Unspecified hemorrhoids K63.3, Ulcer of intestine K62.5, Hemorrhage of anus and rectum K57.30, Diverticulosis of large intestine without perforation or abscess without bleeding CPT copyright 2017 [employer]. All rights reserved. The codes documented in this report are preliminary and upon excellence leader review may be revised to meet current compliance requirements. Matias Bain MD 01/23/2018 6:23:51 PM This report has been signed electronically. Number of Addenda: 0 Note Initiated On: 01/23/2018 1:22 PM
[2018-01-23] MEDS: Losartan Potassium 50 MG Tablet PO (18:36)
--- NOTE | 2018-01-23 20:20 | NURSING ---
Pt. 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 HR up in 130s while walking. Using 3L oxygen. Tolerated well. No distress noted.
[2018-01-23] MEDS: Acetaminophen 325 MG Tablet 650 MG PO (21:44)
[2018-01-23] MEDS: metroNIDAZOLE 500 MG Tablet PO (21:52)
[2018-01-24] VITALS (19 sets, daily range): BP systolic 128–137; BP diastolic 60–75; PULSE 78–109; RESP 16–22; TEMP 36.3–37.3; O2SAT 94–99
[2018-01-24] MEDS: metroNIDAZOLE 500 MG Tablet PO ×3 (05:26→21:54)
--- NOTE | 2018-01-24 05:37 | PN.SURG_ITS ---
Patient Problems: Active and Suspected Problems (Last Reviewed 01/17/18 @ 12:23 by Alfredo Jernigan MD) GI bleed (Acute) Subjective: Pt denies abd pain No report of gross bleeding - Physical Exam Lungs: - - sl coarse bases bilateral Abdomen: Bowel Sounds Present, Soft, Non Tender Vital Signs Temp Pulse Resp BP Pulse Ox 98.4 F 82 16 128/60 H 98 01/24/18 03:39 01/24/18 04:00 01/24/18 03:39 01/24/18 04:00 01/24/18 03:39 Oxygen Flow Rate (L/min) 2 Oxygen Delivery Method Nasal Cannula Weight: 119 lb 0.688 oz Body Mass Index (BMI) 22.4 Orthostatic Vital Signs Start: 01/22/18 17:56 Freq: q24h Status: Active Protocol: Activity Type Activity Date Activity User E-Sign Co-Sign Detail Recorded Client Recorded Date Recorded By Document 01/24/18 04:00 PAL [id number] 01/24/18 05:25 PAL 01/24/18 04:00 Orthostatic Vitals Standing -Blood Pressure (90/60-120/80) 128/75 H -Extremity Use Right Arm -Pulse Rate (60-100) 85 Sitting -Blood Pressure (90/60-120/80) 137/70 H -Extremity Use Right Arm -Pulse Rate (60-100) 84 Lying -Blood Pressure (90/60-120/80) 128/60 H -Extremity Use Right Arm -Pulse Rate (60-100) 82 Intake and Output for Last 24 Hours 01/22/18 01/23/18 01/24/18 23:59 23:59 23:59 Intake Total 2851 / 2851 6224.1 / 6224.1 447 / 447 Output Total 600 / 600 Balance 2851 / 2851 6224.1 / 6224.1 -153 / -153 Laboratory Tests Past 24 Hrs 01/23/18 01/23/18 06:08 06:08 WBC 10.2 RBC 3.84 L Hgb 11.5 L Hct 35.7 L MCV 93.0 MCH 29.9 MCHC 32.2 RDW 14.3 RDW Differential 47.4 H Plt Count 199 MPV 9.8 Immature Gran % (Auto) 0.300 Neut % (Auto) 81.3 H Lymph % (Auto) 10.3 L [place] % (Auto) 7.0 Eos % (Auto) 0.9 Baso % (Auto) 0.2 Absolute Neuts (auto) 8.3 H Absolute Lymphs (auto) 1.05 Total Counted Not Reportable Sodium 141 Potassium 3.9 Chloride 108 H Carbon Dioxide 24.0 Anion Gap 9 BUN 10 Creatinine 0.57 Estim Creat Clear Calc 34.42 Est GFR (MDRD) Af Amer 130 Est GFR (MDRD) Non-Af 108 BUN/Creatinine Ratio 17.4 Glucose 99 Calcium 8.3 L Medical Necessity - Tobacco Use Smoking Status: Never smoker Tobacco Use: Non-smoker Assessment/Plan All Active Problems (Last Reviewed 01/17/18 @ 12:23 by Alfredo Jernigan MD) GI bleed (Acute) H/O coronary artery bypass surgery (Acute 12/20/17) I initiated oral metronidazole last night Ischemic colitis. Need to identify etiology ? aortic valve or aortic crossclamp surgical trauma. Differ to medicine Still on 2 l/min oxygen Need to mobilize Labs pending. Will keep diet light for now
[2018-01-24 05:43] LABS: Absolute Neutrophil Count 7.6 X10^3/uL (2.0-7.7); Basophil# 0.02 X10^3/uL; Basophil% 0.2 % (0-1); Eosinophil# 0.27 X10^3/uL; Eosinophils% 2.9 % (0-5); Hematocrit 33.2 % (37-47); Hemoglobin 10.3 g/dl (12.0-15.0); Lymphocyte % 8.6 % (19-41); Mean Corpuscular Hgb 29.3 pg (27.0-32.0); Mean Corpuscular Volume 94.3 fL (81-99); Mean Platelet Vol. 9.9 fl (6.2-12.0); Monocyte# 0.57 X10^3/uL; Monocyte% 6.1 % (0-10); Neutrophil # 7.63 X10^3/uL (2.7-7.7); Platelet Count 179 K/mm3 (150-450); RBC Distribution Width CV 14.5 % (11.6-14.6); RBC Distribution Width SD 47.6 fl (35.1-43.9); Red Blood Count 3.52 M/mm3 (4.2-5.4); White Blood Count 9.3 K/mm3 (4.4-11.0)
[2018-01-24 05:46] LABS: POSITIVE COUNT NO; POSITIVE DIFFERENTIAL NO; POSITIVE MORPHOLOGY NO
[2018-01-24] MEDS: Ipratropium/Albuterol Sulfate 3 ML AMPUL.NEB INHALATION ×3 (06:39→14:24)
[2018-01-24] MEDS: Losartan Potassium 50 MG Tablet PO (10:25)
[2018-01-24] MEDS: Ascorbic Acid 500 MG Tablet PO (10:25)
[2018-01-24] MEDS: Metoprolol Tartrate 50 MG Tablet PO (10:25)
--- NOTE | 2018-01-24 11:46 | CASEMGMT ---
JENNA HENDRICKS assessment: Face to Face with patient for initial transition planning/care coordination assessment. JENNA HENDRICKS introduced self and role at [facility], pt voices understanding and consents to assessment at this time. Pt is sitting up in chair in no distress at this time. Pt is A/O x4 at this time and answers all questions appropriately at this time. Care providers, pharmacy, and demographics verified at this time. PCP: Chey Specialists: [facility]-cardio Preferred Pharmacy: [facility] Insurance: [facility] A/B, AARP Prescription Benefit: AARP Living Will/HPOA: Pt states has LW/HPOA and , Wilfred Thao, is HPOA. Pt's AD's are not on file at [facility] at this time. LNOK: Wilfred Thao, ; Maricarmen De Jesus, daughter Living Arrangements: Pt lives with in 1 story condo with no stairs and states no concerns at home at this time. Transportation: Pt states normally drives self but is unable due to recent heart surgery and pt states no transportation concerns at this time. DME/HHC: Pt states has no current DME or need for any at this time. Pt is current with [facility] for RN s/p open heart surgery. [facility] is aware of pt admission and request to be notified at discharge. Resumption of care order placed and green sheet on chart. Pt states has never been to a SNF. Pt states no concerns with going home at time of discharge and is anxious to go home at this time. Pt states does not smoke and drinks a glass of wine occasionally. Pt voices no further concerns/needs at this time. Advised pt to ask for CM if any further questions/concerns/needs at this time, voices understanding. Plan: Home w/ resump [facility]. [place] JENNA HENDRICKS
--- NOTE | 2018-01-24 15:07 | ECHOCS_ITS ---
Reason For Study: DYSPNEA/SOB Procedure This was a 2D Doppler, Color Flow transthoracic echocardiogram. Contrast injection was performed. Exam performed portable in patient room. Left Ventricle Normal LV size. Sigmoid septum. Left ventricular systolic function is normal. The estimated ejection fraction is 70 %. No evidence for diastolic dysfunction. No regional wall motion abnormalities noted. Right Ventricle Normal RV size. Normal systolic function. Atria The left atrium is mildly enlarged. Normal right atrium. No doppler evidence for ASD. Mitral Valve There is moderate mitral annular calcification. Extension of the mitral annular calcification onto the posterior mitral valve leaflet. Mild diffuse mitral valve thickening. Mild focal mitral valve calcification of the anterior leaflet. Mild (1+) mitral valve insufficiency. Tricuspid Valve Normal tricuspid valve. Trivial tricuspid valve insufficiency. Right ventricular systolic pressure estimated to be 29 mmHg. Aortic Valve Stable appearing bioprosthetic aortic valve apparatus. Pulmonic Valve The pulmonic valve is not well visualized. Trivial pulmonic valve insufficiency. Great Vessels Normal sized aortic root. Pericardium/Pleural No pericardial effusion. Medication Diluted definity 2ml given slow IV push to enhance endocardial definition. MMode/2D Measurements & Calculations LVIDd: 2.8 cm IVSd: 1.1 cm LVOT diam: 1.7 cm LVIDs: 1.7 cm LVPWd: 0.94 cm LVOT area: 2.2 cm2 RVDd: 3.0 cm FS: 39.9 % Ao root diam: 3.3 cm LAV(MOD-bp): 52.9 ml LA A4 area: 18.5 cm2 LA dimension: 3.3 cm LAV(MOD-bp) Indexed: 34.9 ml/m2 LAV(MOD-sp2): 49.7 ml LAV(MOD-sp4): 52.2 ml RA A4 area: 12.6 cm2 Time Measurements MV dec time: 0.15 sec Doppler Measurements & Calculations MV E max hero: 97.2 cm/sec Lat Peak E' Hero: 13.3 cm/sec MV V2 max: 184.9 cm/sec MV A max hero: 134.5 cm/sec E/E' lat: 7.3 MV max P.7 mmHg MV E/A: 0.72 MV V2 mean: 99.2 cm/sec MV mean P.8 mmHg MV V2 VTI: 29.3 cm MVA(VTI): 2.1 cm2 MV P1/2t max hero: 126.2 cm/sec Ao V2 max: 158.4 cm/sec LV V1 max: 142.3 cm/sec MV P1/2t: 73.8 msec Ao max P.0 mmHg LV V1 max P.1 mmHg MV dec slope: 500.8 cm/sec2 Ao V2 mean: 132.2 cm/sec LV V1 mean P.4 mmHg MVA(P1/2t): 3.0 cm2 Ao mean P.2 mmHg LV V1 mean: 98.9 cm/sec Ao V2 VTI: 34.9 cm LV V1 VTI: 28.5 cm SIVA(I,D): 1.8 cm2 SIVA(V,D): 1.9 cm2 SV(LVOT): 61.8 ml PA V2 max: 115.6 cm/sec TR max hero: 257.1 cm/sec TR max P.4 mmHg Interpretation Summary Contrast injection was performed. Left ventricular systolic function is normal. The estimated ejection fraction is 70 %. The left atrium is mildly enlarged. There is moderate mitral annular calcification. Extension of the mitral annular calcification onto the posterior mitral valve leaflet. Mild diffuse mitral valve thickening. Mild focal mitral valve calcification of the anterior leaflet. Mild (1+) mitral valve insufficiency. Trivial tricuspid valve insufficiency. Stable appearing bioprosthetic aortic valve apparatus. Trivial pulmonic valve insufficiency. Right ventricular systolic pressure estimated to be 29 mmHg. No evidence for diastolic dysfunction. Ordering Physician: Joselin Nash Referring Physician: RAVEN JEAN BAPTISTE Performed By: Estevan Walsh RCS
--- NOTE | 2018-01-24 17:10 | PCM.PN.HOSP ---
Patient Problems: Active and Suspected Problems (Last Reviewed 01/17/18 @ 12:23 by Alfredo Jernigan MD) GI bleed (Acute) Subjective: Patient was seen and examined. Denies any more bloody bowel movements. Denies any dizziness or shortness of breath. Off oxygen. Walking laps around the nurses station. Vitals/I&O's: Vital Signs Temp Pulse Resp BP Pulse Ox 98.3 F 105 H 20 H 137/68 H 97 01/24/18 14:00 01/24/18 16:00 01/24/18 14:24 01/24/18 14:00 01/24/18 14:24 Oxygen Flow Rate (L/min) 2 Oxygen Delivery Method Room Air Weight: 53.997 kg Body Mass Index (BMI) 22.4 Orthostatic Vital Signs Start: 01/22/18 17:56 Freq: q24h Status: Active Protocol: Activity Type Activity Date Activity User E-Sign Co-Sign Detail Recorded Client Recorded Date Recorded By Document 01/24/18 04:00 PAL [id number] 01/24/18 05:25 PAL 01/24/18 04:00 Orthostatic Vitals Standing -Blood Pressure (90/60-120/80) 128/75 H -Extremity Use Right Arm -Pulse Rate (60-100) 85 Sitting -Blood Pressure (90/60-120/80) 137/70 H -Extremity Use Right Arm -Pulse Rate (60-100) 84 Lying -Blood Pressure (90/60-120/80) 128/60 H -Extremity Use Right Arm -Pulse Rate (60-100) 82 Intake and Output for Last 24 Hours 01/22/18 01/23/18 01/24/18 23:59 23:59 23:59 Intake Total 2851 / 2851 6224.1 / 6224.1 1529 / 1529 Output Total 750 / 750 Balance 2851 / 2851 6224.1 / 6224.1 779 / 779 General: Alert, Oriented x3, Cooperative, No apparent distress HEENT: Atraumatic, PERRLA, EOMI, Normocephalic Oral: Moist Mucosa Neck: Supple Lungs: Clear to auscultation, Normal air movement Cardiovascular: Regular rate, Regular Rhythm, Normal S1, Normal S2, No murmurs Abdomen: Bowel Sounds Present, Soft, Non Tender, Non-Distended, No Hepato-splenomegaly Extremities: No edema Skin: No rashes, No breakdown Musculoskeletal: No Tenderness to Palpation of Joints or Extremities Lymphatic: No Cervical, Supraclavicular, or Inguinal Adenopathy Neurological: Cranial nerves II-XII grossly intact Psych/Mental Status: Normal Affect, Appropriate Laboratory Results 01/24/18 05:06: WBC 9.3, RBC 3.52 L, Hgb 10.3 L, Hct 33.2 L, MCV 94.3, MCH 29.3, MCHC 31.0 L, RDW 14.5, RDW Differential 47.6 H, Plt Count 179, MPV 9.9, Immature Gran % (Auto) 0.200, Neut % (Auto) 82.0 H, Lymph % (Auto) 8.6 L, [place] % (Auto) 6.1, Eos % (Auto) 2.9, Baso % (Auto) 0.2, Absolute Neuts (auto) 7.6, Absolute Lymphs (auto) 0.80 L, Total Counted Not Reportable Current Medications Acetaminophen (Tylenol) 650 mg PO Q6H PRN PRN PRN Reason: Mild Pain (1-3)/Temp > 100.7 F Last Admin: 01/23/18 21:44 Dose: 650 mg Albuterol/Ipratropium (Duoneb) 3 ml INHALATION Q4HWA.RT [facility] Last Admin: 01/24/18 14:24 Dose: 3 ml Ascorbic Acid (Vitamin C) 500 mg PO DAILY [facility] Last Admin: 01/24/18 10:25 Dose: 500 mg Bisacodyl (Dulcolax) 5 mg PO DAILY PRN PRN PRN Reason: Constipation Ergocalciferol (Vitamin D) 50,000 unit PO Q7D [facility] Last Admin: 01/24/18 10:25 Dose: 50,000 unit Losartan Potassium (Cozaar) 50 mg PO DAILY [facility] Last Admin: 01/24/18 10:25 Dose: 50 mg Magnesium Hydroxide (Milk Of Magnesia) 30 ml PO DAILY PRN PRN PRN Reason: Constipation Metoprolol Tartrate (Lopressor (Beta Stephan)) 50 mg PO BID [facility] Last Admin: 01/24/18 10:25 Dose: 50 mg Metronidazole (Flagyl) 500 mg PO TID [facility] Last Admin: 01/24/18 14:33 Dose: 500 mg Ondansetron HCl (Zofran) 4 mg IV Q8H PRN PRN PRN Reason: NAUSEA Last Admin: 01/22/18 19:46 Dose: 4 mg Psyllium Hydrophilic Mucilloid (Metamucil) 1 packet PO DAILY PRN PRN PRN Reason: CONSTIPATION Sodium Chloride () 5 - 30 ml IV UD PRN PRN Reason: SALINE FLUSH Medical Necessity - Tobacco Use Smoking Status: Never smoker Tobacco Use: Non-smoker Assessment/Plan All Active Problems (Last Reviewed 01/17/18 @ 12:23 by Alfredo Jernigan MD) GI bleed (Acute) H/O coronary artery bypass surgery (Acute 12/20/17) 77 year old F with recent history of bovine aortic valve replacement on 12/20/17 in [facility], hypertension, hyperlipidemia who comes in with bright red bleeding per rectum noticed this javier at about 1 AM. 1. Acute hypoxic respiratory insufficiency secondary to likely aspiration pneumonitis, noted clinically, resolved seen in PACU, patient was on 4 L of oxygen overnight, weaned off oxygen with breathing treatments, incentive spirometer, aggressive pulmonary toileting. patient is walking around the unit with no oxygen. Patient had received preop clindamycin which should cover organisms, chest x-ray showed no pneumonia or pneumonitis, patient currently on metronidazole? 2. Acute GI bleed secondary to ischemic colitis in a patient with cardiovascular factors, recent history of bovine aortic valve replacement on 12/20/17, was on aspirin 162 mg p.o. daily, History of hemorrhoids, Status post colonoscopy, findings show ischemic colitis, etiology is unclear, ? Valvular thrombus Slight drop in hemoglobin from 13.5-10.3 has a component of hemodilution, medical management recommended, continue on PPI, off aspirin, ?metronidazole. 3. Status post recent aortic valve replacement, off aspirin, unclear if patient had a post valve replacement thrombosis that led to the current ischemic colitis, will consult cardiology, 2D echo, cannot perform MACIE this weekend. 4. CAD status post recent CABG, not on statin, on metoprolol, off aspirin 5. Hypertension, controlled, on losartan, metoprolol, will continue to monitor 6. Hyperlipidemia, on statin 7. DVT PPx - SCDs Code Visit Inpatient E&M: 70022 Subs Hosp L2
--- NOTE | 2018-01-24 17:17 | PN_ITS ---
Patient Problems: Active and Suspected Problems (Last Reviewed 01/17/18 @ 12:23 by Alfredo Jernigan MD) GI bleed (Acute) Subjective: Patient was seen and examined. Denies any more bloody bowel movements. Denies any dizziness or shortness of breath. Off oxygen. Walking laps around the nurses station. Vitals/I&O's: Vital Signs Temp Pulse Resp BP Pulse Ox 98.3 F 105 H 20 H 137/68 H 97 01/24/18 14:00 01/24/18 16:00 01/24/18 14:24 01/24/18 14:00 01/24/18 14:24 Oxygen Flow Rate (L/min) 2 Oxygen Delivery Method Room Air Weight: 53.997 kg Body Mass Index (BMI) 22.4 Orthostatic Vital Signs Start: 01/22/18 17:56 Freq: q24h Status: Active Protocol: Activity Type Activity Date Activity User E-Sign Co-Sign Detail Recorded Client Recorded Date Recorded By Document 01/24/18 04:00 PAL [id number] 01/24/18 05:25 PAL 01/24/18 04:00 Orthostatic Vitals Standing -Blood Pressure (90/60-120/80) 128/75 H -Extremity Use Right Arm -Pulse Rate (60-100) 85 Sitting -Blood Pressure (90/60-120/80) 137/70 H -Extremity Use Right Arm -Pulse Rate (60-100) 84 Lying -Blood Pressure (90/60-120/80) 128/60 H -Extremity Use Right Arm -Pulse Rate (60-100) 82 Intake and Output for Last 24 Hours 01/22/18 01/23/18 01/24/18 23:59 23:59 23:59 Intake Total 2851 / 2851 6224.1 / 6224.1 1529 / 1529 Output Total 750 / 750 Balance 2851 / 2851 6224.1 / 6224.1 779 / 779 General: Alert, Oriented x3, Cooperative, No apparent distress HEENT: Atraumatic, PERRLA, EOMI, Normocephalic Oral: Moist Mucosa Neck: Supple Lungs: Clear to auscultation, Normal air movement Cardiovascular: Regular rate, Regular Rhythm, Normal S1, Normal S2, No murmurs Abdomen: Bowel Sounds Present, Soft, Non Tender, Non-Distended, No Hepato- splenomegaly Extremities: No edema Skin: No rashes, No breakdown Musculoskeletal: No Tenderness to Palpation of Joints or Extremities Lymphatic: No Cervical, Supraclavicular, or Inguinal Adenopathy Neurological: Cranial nerves II-XII grossly intact Psych/Mental Status: Normal Affect, Appropriate Laboratory Results 01/24/18 05:06: WBC 9.3, RBC 3.52 L, Hgb 10.3 L, Hct 33.2 L, MCV 94.3, MCH 29.3, MCHC 31.0 L, RDW 14.5, RDW Differential 47.6 H, Plt Count 179, MPV 9.9, Immature Gran % (Auto) 0.200, Neut % (Auto) 82.0 H, Lymph % (Auto) 8.6 L, [place] % (Auto) 6.1, Eos % (Auto) 2.9, Baso % (Auto) 0.2, Absolute Neuts (auto) 7.6, Absolute Lymphs (auto) 0.80 L, Total Counted Not Reportable Current Medications Acetaminophen (Tylenol) 650 mg PO Q6H PRN PRN PRN Reason: Mild Pain (1-3)/Temp > 100.7 F Last Admin: 01/23/18 21:44 Dose: 650 mg Albuterol/Ipratropium (Duoneb) 3 ml INHALATION Q4HWA.RT [facility] Last Admin: 01/24/18 14:24 Dose: 3 ml Ascorbic Acid (Vitamin C) 500 mg PO DAILY [facility] Last Admin: 01/24/18 10:25 Dose: 500 mg Bisacodyl (Dulcolax) 5 mg PO DAILY PRN PRN PRN Reason: Constipation Ergocalciferol (Vitamin D) 50,000 unit PO Q7D [facility] Last Admin: 01/24/18 10:25 Dose: 50,000 unit Losartan Potassium (Cozaar) 50 mg PO DAILY [facility] Last Admin: 01/24/18 10:25 Dose: 50 mg Magnesium Hydroxide (Milk Of Magnesia) 30 ml PO DAILY PRN PRN PRN Reason: Constipation Metoprolol Tartrate (Lopressor (Beta Stephan)) 50 mg PO BID [facility] Last Admin: 01/24/18 10:25 Dose: 50 mg Metronidazole (Flagyl) 500 mg PO TID [facility] Last Admin: 01/24/18 14:33 Dose: 500 mg Ondansetron HCl (Zofran) 4 mg IV Q8H PRN PRN PRN Reason: NAUSEA Last Admin: 01/22/18 19:46 Dose: 4 mg Psyllium Hydrophilic Mucilloid (Metamucil) 1 packet PO DAILY PRN PRN PRN Reason: CONSTIPATION Sodium Chloride () 5 - 30 ml IV UD PRN PRN Reason: SALINE FLUSH Medical Necessity - Tobacco Use Smoking Status: Never smoker Tobacco Use: Non-smoker Assessment/Plan All Active Problems (Last Reviewed 01/17/18 @ 12:23 by Alfredo Jernigan MD) GI bleed (Acute) H/O coronary artery bypass surgery (Acute 12/20/17) 77 year old F with recent history of bovine aortic valve replacement on 12/20/17 in [facility], hypertension, hyperlipidemia who comes in with bright red bleeding per rectum noticed this javier at about 1 AM. 1. Acute hypoxic respiratory insufficiency secondary to likely aspiration pneumonitis, noted clinically, resolved seen in PACU, patient was on 4 L of oxygen overnight, weaned off oxygen with breathing treatments, incentive spirometer, aggressive pulmonary toileting. patient is walking around the unit with no oxygen. Patient had received preop clindamycin which should cover organisms, chest x-ray showed no pneumonia or pneumonitis, patient currently on metronidazole? 2. Acute GI bleed secondary to ischemic colitis in a patient with cardiovascular factors, recent history of bovine aortic valve replacement on 12/20/17, was on aspirin 162 mg p.o. daily, History of hemorrhoids, Status post colonoscopy, findings show ischemic colitis, etiology is unclear, ? Valvular thrombus Slight drop in hemoglobin from 13.5-10.3 has a component of hemodilution, medical management recommended, continue on PPI, off aspirin, ?metronidazole. 3. Status post recent aortic valve replacement, off aspirin, unclear if patient had a post valve replacement thrombosis that led to the current ischemic colitis, will consult cardiology, 2D echo, cannot perform MACIE this weekend. 4. CAD status post recent CABG, not on statin, on metoprolol, off aspirin 5. Hypertension, controlled, on losartan, metoprolol, will continue to monitor 6. Hyperlipidemia, on statin 7. DVT PPx - SCDs Code Visit Inpatient E&M: 68323 Subs Hosp L2
[2018-01-24] MEDS: Pantoprazole Sodium 40 MG Tablet PO (18:19)
--- NOTE | 2018-01-24 19:04 | NURSING ---
PT CALLED NURSE TO ROOM FOR NOSE BLEED RT NARES AFTER BLOWING NOSE. 3 TISSUES IN TRASH CAN WITH SPOTTY BRIGHT RED BLOOD. SMALL AMT BLEEDING OBS. TEACHING GIVEN ON PINCHING AND HOLDING PRESSRE WITH HEAD SL TUCKED. NO POST PHARYNX DRNG VISUALIZED BUT IN CASE DID SWALLOW SOME PT AND FAMILY WANTED TO MAKE SURE DOCUMENTED IN CASE BLOOD AFFECTS STOOLS
--- NOTE | 2018-01-24 19:48 | PCM.CONS.C ---
Problem List (1) CAD (coronary artery disease) Status: Acute Qualifiers: Coronary Disease-Associated Artery/Lesion type: [place] artery [place] vs. transplanted heart: [place] heart Associated angina: without angina Qualified Code(s): I25.10 - Atherosclerotic heart disease of [place] coronary artery without angina pectoris (2) S/P PTCA (percutaneous transluminal coronary angioplasty) Status: Chronic (3) H/O coronary artery bypass surgery Status: Acute Comment: AVR w/ [address] [facility] [employer] Trifecta Prosthetic Tissue Valve and CABG x DELEON-LAD, SVG-Ramus, SVG-PPLB 12/20/17 (4) H/O aortic valve replacement with tissue graft Status: Chronic Comment: AVR w/ [address] [facility] [employer] Trifecta Prosthetic Tissue Valve and CABG x DELEON-LAD, SVG-Ramus, SVG-PPLB 12/20/17 (5) HLD (hyperlipidemia) Status: Chronic Qualifiers: Hyperlipidemia type: unspecified Qualified Code(s): E78.5 - Hyperlipidemia, unspecified (6) Essential (primary) hypertension Status: Chronic (7) GI bleed Status: Acute Qualifiers: GI bleed type/associated pathology: unspecified gastrointestinal hemorrhage type Qualified Code(s): K92.2 - Gastrointestinal hemorrhage, unspecified Reason for Consult Date of Consultation: 01/24/18 History of Present Illness: The patient is a 77 year old white female with a past medical history of CAD, status post AR-remote, status post PCI-remote, status post CABG-recent, status post aortic valve stenosis/aortic valve lmeyaoxzwaa-afmtqfhxixsom-zdubgd, hyperlipidemia (statin intolerance), hypertension, who presented for evaluation of gastrointestinal bleeding who is now referred for further cardiovascular evaluation. She underwent cardiovascular consultation on 12/10/2017 for concerns at that time of angina pectoris. She had previously undergone noninvasive and invasive evaluation and care locally as well as at other institutions. She subsequently underwent further cardiac evaluation with transthoracic echocardiogram, transesophageal echocardiogram, and diagnostic cardiac catheterization. The results are as noted below. She was subsequently referred to [facility] where she underwent further cardiothoracic evaluation. This led to coronary artery bypass grafting surgery with a DELEON to the LAD, and SVG to the intermediate ramus branch, and an SVG to the posterior lateral branch. She also had aortic valve replacement with a 19 mm [facility] trifecta pericardial prosthesis. She presented back for an outpatient cardiovascular follow-up on 01/17/2018 and was reported as doing well with no acute postoperative symptoms or adverse events. She was recommended for continued outpatient cardiovascular follow-up. However she presented to [facility] for abdominal discomfort and gastrointestinal bleeding. She underwent colonoscopy and was found to have concerns of ischemic colitis in the splenic flexure. Her antiplatelet therapy with respect to aspirin was placed on hold. She was asked to have further cardiovascular evaluation for any obvious evidence of cardioembolic phenomenon leading to her gastrointestinal process. She has denied fevers. She has denied obvious chills/night sweats. She has denied any obvious nailbed lesions or digit tip lesions or other rashes or loss of vision. She also has denied any ongoing chest discomfort, orthopnea, PND, near syncope or syncope. She states her most uncomfortable postsurgical site is her left lower extremity at the site of her SVG graft harvest. She has undergone laboratory profile. Her initial WBC was 12.2 which is declined at 9.3 and her initial hemoglobin was 13.5 which is declined to 10.3. She had an ECG performed. She was noted to be in sinus rhythm with no acute ECG changes. She has now undergone a repeat transthoracic echocardiogram with the results as noted below. She states overall the present time she is feeling better. She denies any ongoing abdominal discomfort. She has had no recurrent gastrointestinal bleeding with respect to bowel movements, etc. [] Past Medical History Allergies/Adverse Reactions: Allergies Penicillins Allergy (Verified 01/22/18 11:08) rash Sulfa (Sulfonamide Antibiotics) Allergy (Verified 01/22/18 11:08) rash Dgvunqy-Tgd-Fqj Reductase Inhibitor Adverse Reaction (Verified 01/22/18 11:08) myalgias Home Medications: Ambulatory Orders Medication Instructions Recorded cholecalciferol (vitamin D3) 50,000 unit PO FR 12/04/17 50,000 unit capsule ascorbic acid (vitamin C) 500 mg 500 mg PO DAILY 01/17/18 tablet losartan 50 mg tablet 50 mg PO DAILY #90 tab 01/17/18 metoprolol tartrate 50 mg tablet 50 mg PO BID #180 tab 01/17/18 Acetaminophen [Tylenol Arthritis] 650 - 1,300 mg PO Q6H PRN PRN 01/22/18 Metronidazole [Flagyl] 500 mg PO TID #21 tablet 01/24/18 Past Medical History (Chronic Problems): Chronic Problems (Last Reviewed 01/17/18 @ 12:23 by Alfredo Jernigan MD) S/P PTCA (percutaneous transluminal coronary angioplasty) (Chronic) H/O aortic valve replacement with tissue graft (Chronic 12/20/17) AVR w/ [address] [facility] [employer] Trifecta Prosthetic Tissue Valve and CABG x DELEON-LAD, SVG-Ramus, SVG-PPLB 12/20/17 Essential (primary) hypertension (Chronic) HLD (hyperlipidemia) (Chronic) Atherosclerosis of coronary artery of [place] heart with angina pectoris (Chronic) AVR w/ [address] [facility] [facility] Trifecta Prosthetic Tissue Valve and CABG x DELEON-LAD, SVG-Ramus, SVG-PPLB 12/22/17 [id number] and Mid LAD w/ 2.5 x 14 mm Resolute stent and 3 x 15 mm Resolute stent 08/09/14 Non-rheumatic aortic stenosis (Chronic) Old myocardial infarction (Chronic) History of coronary artery stent placement (Chronic 08/09/14) [id number] and Mid LAD w/ 2.5 x 14 mm Resolute stent and 3 x 15 mm Resolute stent 08/09/14 Surgical History: angioplasty, appendectomy, coronary bypass surgery, - - s/p AVR - bioprosthetic - *Family History Paternal Family History: Family History (Last Reviewed 01/17/18 @ 12:23 by Alfredo Jernigan MD) Father CAD (coronary artery disease) Myocardial infarction History Items: Heart Disease - CAD/AR Maternal Family History: Family History (Last Reviewed 01/17/18 @ 12:23 by Alfredo Jernigan MD) Father CAD (coronary artery disease) Myocardial infarction History Items: Cancer - Colon cancer Lives: Alone Smoking Status: Never smoker Tobacco Use: Non-smoker Alcohol: None Drugs: None Review of Systems - Review of Systems General: Denies: Fever, Night Sweats, Fatigue Cardiovascular: Denies: Chest Discomfort, Shortness of Breath, Orthopnea, PND, Peripheral Edema, Palpitations, Lightheadedness, Dizziness, Near Syncope, Syncope Respiratory: Denies: Cough, Sputum Production, Hemoptysis Gastrointestinal: Reports: Abdominal Discomfort, Hematochezia. Denies: Hematemesis, Melena Genitourinary: Denies: Dysuria, Hematuria Skin: Denies: Rash Subjectve: This is a 77-year-old white female who appears to be resting comfortably at the moment in no acute distress. Objective: Vital Signs Temp Pulse Resp BP Pulse Ox 97.3 F L 106 H 16 137/61 H 94 01/24/18 18:00 01/24/18 18:00 01/24/18 18:00 01/24/18 18:00 01/24/18 18:00 Oxygen Flow Rate (L/min) 2 Oxygen Delivery Method Room Air Weight: 119 lb 0.688 oz Body Mass Index (BMI) 22.4 Orthostatic Vital Signs Start: 01/22/18 17:56 Freq: q24h Status: Active Protocol: Activity Type Activity Date Activity User E-Sign Co-Sign Detail Recorded Client Recorded Date Recorded By Document 01/24/18 04:00 PAL [id number] 01/24/18 05:25 PAL 01/24/18 04:00 Orthostatic Vitals Standing -Blood Pressure (90/60-120/80 mm Hg) 128/75 H -Extremity Use Right Arm -Pulse Rate (60-100 beats/min) 85 Sitting -Blood Pressure (90/60-120/80 mm Hg) 137/70 H -Extremity Use Right Arm -Pulse Rate (60-100 beats/min) 84 Lying -Blood Pressure (90/60-120/80 mm Hg) 128/60 H -Extremity Use Right Arm -Pulse Rate (60-100 beats/min) 82 Intake and Output for Last 24 Hours 01/22/18 01/23/18 01/24/18 23:59 23:59 23:59 Intake Total 2851 / 2851 6224.1 / 6224.1 1829 / 1829 Output Total 750 / 750 Balance 2851 / 2851 6224.1 / 6224.1 1079 / 1079 General: Awake, Alert, Oriented x 3, Cooperative, No Acute Distress HEENT: Atraumatic, Normocephalic, PERRL, EOMI, Sclera Non Icteric Oral: Moist Mucosa Neck: Supple, Good ROM, No JVD Lungs: Clear to auscultation Cardiovascular: Regular Rhythm, Normal S1, Normal S2 Vascular: No Carotid Bruits Abdomen: Bowel Sounds Present, Soft, Non Tender Extremities: Mild LLE Edema Neurological: No Focal Motor or Sensory Deficit Psych/Mental Status: Appropriate, Normal Affect 01/24/18 05:06: WBC 9.3, RBC 3.52 L, Hgb 10.3 L, Hct 33.2 L, MCV 94.3, MCH 29.3, MCHC 31.0 L, RDW 14.5, RDW Differential 47.6 H, Plt Count 179, MPV 9.9, Immature Gran % (Auto) 0.200, Neut % (Auto) 82.0 H, Lymph % (Auto) 8.6 L, [place] % (Auto) 6.1, Eos % (Auto) 2.9, Baso % (Auto) 0.2, Absolute Neuts (auto) 7.6, Total Counted Not Reportable Rhythm: Sinus rhythm EKG: Sinus rhythm; no acute ECG changes ECHO: 12/10/2017: Left ventricle normal with an LVEF of 60%; sigmoid septum; mild left atrial enlargement; moderate to severe mitral annular calcification; extension of the mitral annular calcification onto the posterior mitral valve leaflet; mild diffuse mitral valve thickening; mild MR; mild TR; moderate to severe aortic valve stenosis; trivial PI; calcified aortic root; RV systolic pressure estimated to be 35 mmHg; decreased diastolic compliance 01/24/2018: Left ventricle normal with an LVEF of 70%; mild left atrial enlargement; moderate mitral annular calcification; extension of the mitral annular calcification onto the posterior mitral valve leaflet; mild diffuse mitral valve thickening with mild focal mitral valve calcification of the anterior leaflet; mild MR; trivial TR; stable appearing bioprosthetic aortic valve apparatus; trivial pulmonic valve insufficiency; RV systolic pressure estimated at 29 mmHg; no evidence of diastolic dysfunction Transesophageal echocardiogram: 12/11/2017: Left ventricle normal with an LVEF of 65%; mild left atrial enlargement; no spontaneous contrast in the left atrium; no thrombus detected in the left atrial appendage; moderate mitral annular calcification; mild diffuse mitral valve thickening; moderate MR; trivial TR; severe aortic valve stenosis; aortic valve area by planimetry of 0.7-0.8 cm?; bubble contrast study negative for right to left intra-atrial shunt; calcified aortic root; mild atherosclerosis of the aortic arch and descending thoracic aorta Cardiac Cath: 12/10/2017: Left ventricular ejection fraction at 65%; LV wall motion normal; elevated left ventricular end-diastolic pressure; left main coronary artery with mild luminal irregularities; LAD with a mid previously placed stent with an in-stent distal 95% restenosis followed by an 85% stenosis; diagonal branch with a proximal serial 85% stenosis; left circumflex branch with a mid circumflex small caliber vessel 95% stenosis; right coronary artery occluded; left to right collateral flow; aortic valve calcification moderate; mitral valve annular calcification moderate PCI: 07/26/2014: [place], [place]: LAD PCI/JALEEL CT Surgery: 2017: [facility]: DELEON to the LAD; SVG to the intermediate ramus branch; SVG to the posterior lateral branch; aortic valve replacement with a 19 mm [facility] trifecta pericardial prosthesis CXR: Preliminary evaluation: No acute cardiopulmonary disease process Assessment/Plan 1. CAD status post PCI status post CABG At the present time the patient has no ongoing symptoms with respect to angina pectoris. There is been no evidence of acute coronary syndrome. She does need to continue medical management. This would include agents such as aspirin, if permissible, nitrates as needed, beta-blockers, afterload reducing agents as deemed appropriate, and lipid-lowering agents if tolerated. 2. Aortic valve stenosis status post aortic valve replacement-bioprosthetic The patient does have a bioprosthetic aortic valve. It has been evaluated twice since her open heart surgery. This occurred by transthoracic echocardiogram on 01/16/2018 and again today. Both studies demonstrated her bioprosthetic aortic valve apparatus appear to be stable. Neither study suggested any obvious evidence of intracardiac mass lesion/thrombus. At the present time the patient will need to continue to be followed as deemed appropriate. She will need to continue AHA antibiotic prophylaxis. If there are ongoing issues of thromboembolic event, despite the lack of classic symptoms and/or findings of prosthetic valve endocarditis or thromboembolic events-which would be less likely with a bioprosthetic aortic valve, then she may need further evaluation of her cardiac anatomy/valvular anatomy with a transesophageal echocardiogram. 3. Hyperlipidemia The patient does have hyperlipidemia. Ideally she would be treated with medical management including a statin. She states she has statin intolerance. Thus at the present time she does need to monitor her diet and when able to participate in cardiac rehab/exercise programs as best as possible. She may need to be considered for non-statin therapy. 4. Hypertension The patient's blood pressure will be followed. Her medications can be adjusted as deemed appropriate. 5. GI bleed The patient did present for concerns of abdominal discomfort and gastrointestinal bleeding process. She is undergone evaluation as noted above with concerns of ischemic colitis. At the present time from a cardiovascular standpoint there is no definitive cardiovascular source with respect to embolic phenomena leading to this. Again depending upon her clinical course, if there are other changes and/or suggestions of other thromboembolic related issues, despite the lack of any obvious findings thus far on her repetitive transthoracic echocardiograms that she may need to be considered for further evaluation with transesophageal echocardiogram. However it is noted that echocardiographic artifact/reverberation from her bioprosthetic aortic valve may still be present on transesophageal echocardiogram, as it is on transthoracic echocardiogram, making it challenging to totally exclude sources for embolic phenomena. Comment: The above was discussed with the patient, her family members present, and Dr. Nash. This note was generated with [employer] software. It may contain incorrect words, spelling, and punctuation that were not noted in checking the note before signing.
--- NOTE | 2018-01-24 19:53 | CON.PCM_ITS ---
Problem List (1) CAD (coronary artery disease) Status: Acute Qualifiers: Coronary Disease-Associated Artery/Lesion type: apache artery [place] vs. transplanted heart: apache heart Associated angina: without angina Qualified Code(s): I25.10 - Atherosclerotic heart disease of apache coronary artery without angina pectoris (2) S/P PTCA (percutaneous transluminal coronary angioplasty) Status: Chronic (3) H/O coronary artery bypass surgery Status: Acute Comment: AVR w/ [address] [facility] Trifecta Prosthetic Tissue Valve and CABG x DELEON-LAD, SVG-Ramus, SVG-PPLB 12/20/17 (4) H/O aortic valve replacement with tissue graft Status: Chronic Comment: AVR w/ [address] [facility] Trifecta Prosthetic Tissue Valve and CABG x DELEON-LAD, SVG-Ramus, SVG-PPLB 12/20/17 (5) HLD (hyperlipidemia) Status: Chronic Qualifiers: Hyperlipidemia type: unspecified Qualified Code(s): E78.5 - Hyperlipidemia, unspecified (6) Essential (primary) hypertension Status: Chronic (7) GI bleed Status: Acute Qualifiers: GI bleed type/associated pathology: unspecified gastrointestinal hemorrhage type Qualified Code(s): K92.2 - Gastrointestinal hemorrhage, unspecified Reason for Consult Date of Consultation: 01/24/18 History of Present Illness: The patient is a 77 year old white female with a past medical history of CAD, status post CA-remote, status post PCI-remote, status post CABG-recent, status post aortic valve stenosis/aortic valve fttjhcaagnd-zwyoeluvgpxgi-naaiqc, hyperlipidemia (statin intolerance), hypertension, who presented for evaluation of gastrointestinal bleeding who is now referred for further cardiovascular evaluation. She underwent cardiovascular consultation on 12/10/2017 for concerns at that time of angina pectoris. She had previously undergone noninvasive and invasive evaluation and care locally as well as at other institutions. She subsequently underwent further cardiac evaluation with transthoracic echocardiogram, transesophageal echocardiogram, and diagnostic cardiac catheterization. The results are as noted below. She was subsequently referred to [facility] where she underwent further cardiothoracic evaluation. This led to coronary artery bypass grafting surgery with a DELEON to the LAD, and SVG to the intermediate ramus branch, and an SVG to the posterior lateral branch. She also had aortic valve replacement with a 19 mm [facility] trifecta pericardial prosthesis. She presented back for an outpatient cardiovascular follow-up on 01/17/2018 and was reported as doing well with no acute postoperative symptoms or adverse events. She was recommended for continued outpatient cardiovascular follow-up. However she presented to [facility] for abdominal discomfort and gastrointestinal bleeding. She underwent colonoscopy and was found to have concerns of ischemic colitis in the splenic flexure. Her antiplatelet therapy with respect to aspirin was placed on hold. She was asked to have further cardiovascular evaluation for any obvious evidence of cardioembolic phenomenon leading to her gastrointestinal process. She has denied fevers. She has denied obvious chills/night sweats. She has denied any obvious nailbed lesions or digit tip lesions or other rashes or loss of vision. She also has denied any ongoing chest discomfort, orthopnea, PND, near syncope or syncope. She states her most uncomfortable postsurgical site is her left lower extremity at the site of her SVG graft harvest. She has undergone laboratory profile. Her initial WBC was 12.2 which is d eclined at 9.3 and her initial hemoglobin was 13.5 which is declined to 10.3. She had an ECG performed. She was noted to be in sinus rhythm with no acute ECG changes. She has now undergone a repeat transthoracic echocardiogram with the results as noted below. She states overall the present time she is feeling better. She denies any ongoing abdominal discomfort. She has had no recurrent gastrointestinal bleeding with respect to bowel movements, etc. [] Past Medical History Allergies/Adverse Reactions: Allergies Penicillins Allergy (Verified 01/22/18 11:08) rash Sulfa (Sulfonamide Antibiotics) Allergy (Verified 01/22/18 11:08) rash Wstkhef-Oqe-Pbs Reductase Inhibitor Adverse Reaction (Verified 01/22/18 11:08) myalgias Home Medications: Ambulatory Orders Medication Instructions Recorded cholecalciferol (vitamin D3) 50,000 unit PO FR 12/04/17 50,000 unit capsule ascorbic acid (vitamin C) 500 mg 500 mg PO DAILY 01/17/18 tablet losartan 50 mg tablet 50 mg PO DAILY #90 tab 01/17/18 metoprolol tartrate 50 mg tablet 50 mg PO BID #180 tab 01/17/18 Acetaminophen [Tylenol Arthritis] 650 - 1,300 mg PO Q6H PRN PRN 01/22/18 Metronidazole [Flagyl] 500 mg PO TID #21 tablet 01/24/18 Past Medical History (Chronic Problems): Chronic Problems (Last Reviewed 01/17/18 @ 12:23 by Alfredo Jernigan MD) S/P PTCA (percutaneous transluminal coronary angioplasty) (Chronic) H/O aortic valve replacement with tissue graft (Chronic 12/20/17) AVR w/ [address] [facility] Trifecta Prosthetic Tissue Valve and CABG x DELEON-LAD, SVG-Ramus, SVG-PPLB 12/20/17 Essential (primary) hypertension (Chronic) HLD (hyperlipidemia) (Chronic) Atherosclerosis of coronary artery of apache heart with angina pectoris (Chronic) AVR w/ [address] [facility] [facility] Trifecta Prosthetic Tissue Valve and CABG x DELEON-LAD, SVG-Ramus, SVG-PPLB 12/22/17 AOO-BLT-[place] and Mid LAD w/ 2.5 x 14 mm Resolute stent and 3 x 15 mm Resolute stent 08/09/14 Non-rheumatic aortic stenosis (Chronic) Old myocardial infarction (Chronic) History of coronary artery stent placement (Chronic 08/09/14) OQM-AOU-Oved and Mid LAD w/ 2.5 x 14 mm Resolute stent and 3 x 15 mm Resolute stent 08/09/14 Surgical History: angioplasty, appendectomy, coronary bypass surgery, - - s/p AVR - bioprosthetic - *Family History Paternal Family History: Family History (Last Reviewed 01/17/18 @ 12:23 by lAfredo Jernigan MD) Father CAD (coronary artery disease) Myocardial infarction History Items: Heart Disease - CAD/CA Maternal Family History: Family History (Last Reviewed 01/17/18 @ 12:23 by Alfredo Jernigan MD) Father CAD (coronary artery disease) Myocardial infarction History Items: Cancer - Colon cancer Lives: Alone Smoking Status: Never smoker Tobacco Use: Non-smoker Alcohol: None Drugs: None Review of Systems - Review of Systems General: Denies: Fever, Night Sweats, Fatigue Cardiovascular: Denies: Chest Discomfort, Shortness of Breath, Orthopnea, PND, Peripheral Edema, Palpitations, Lightheadedness, Dizziness, Near Syncope, Syncope Respiratory: Denies: Cough, Sputum Production, Hemoptysis Gastrointestinal: Reports: Abdominal Discomfort, Hematochezia. Denies: Hematemesis, Melena Genitourinary: Denies: Dysuria, Hematuria Skin: Denies: Rash Subjectve: This is a 77-year-old white female who appears to be resting comfortably at the moment in no acute distress. Objective: Vital Signs Temp Pulse Resp BP Pulse Ox 97.3 F L 106 H 16 137/61 H 94 01/24/18 18:00 01/24/18 18:00 01/24/18 18:00 01/24/18 18:00 01/24/18 18:00 Oxygen Flow Rate (L/min) 2 Oxygen Delivery Method Room Air Weight: 119 lb 0.688 oz Body Mass Index (BMI) 22.4 Orthostatic Vital Signs Start: 01/22/18 17:56 Freq: q24h Status: Active Protocol: Activity Type Activity Date Activity User E-Sign Co-Sign Detail Recorded Client Recorded Date Recorded By Document 01/24/18 04:00 PAL [id number] 01/24/18 05:25 PAL 01/24/18 04:00 Orthostatic Vitals Standing -Blood Pressure (90/60-120/80 mm Hg) 128/75 H -Extremity Use Right Arm -Pulse Rate (60-100 beats/min) 85 Sitting -Blood Pressure (90/60-120/80 mm Hg) 137/70 H -Extremity Use Right Arm -Pulse Rate (60-100 beats/min) 84 Lying -Blood Pressure (90/60-120/80 mm Hg) 128/60 H -Extremity Use Right Arm -Pulse Rate (60-100 beats/min) 82 Intake and Output for Last 24 Hours 01/22/18 01/23/18 01/24/18 23:59 23:59 23:59 Intake Total 2851 / 2851 6224.1 / 6224.1 1829 / 1829 Output Total 750 / 750 Balance 2851 / 2851 6224.1 / 6224.1 1079 / 1079 General: Awake, Alert, Oriented x 3, Cooperative, No Acute Distress HEENT: Atraumatic, Normocephalic, PERRL, EOMI, Sclera Non Icteric Oral: Moist Mucosa Neck: Supple, Good ROM, No JVD Lungs: Clear to auscultation Cardiovascular: Regular Rhythm, Normal S1, Normal S2 Vascular: No Carotid Bruits Abdomen: Bowel Sounds Present, Soft, Non Tender Extremities: Mild LLE Edema Neurological: No Focal Motor or Sensory Deficit Psych/Mental Status: Appropriate, Normal Affect 01/24/18 05:06: WBC 9.3, RBC 3.52 L, Hgb 10.3 L, Hct 33.2 L, MCV 94.3, MCH 29.3, MCHC 31.0 L, RDW 14.5, RDW Differential 47.6 H, Plt Count 179, MPV 9.9, Immature Gran % (Auto) 0.200, Neut % (Auto) 82.0 H, Lymph % (Auto) 8.6 L, [place] % (Auto) 6.1, Eos % (Auto) 2.9, Baso % (Auto) 0.2, Absolute Neuts (auto) 7.6, Total Counted Not Reportable Rhythm: Sinus rhythm EKG: Sinus rhythm; no acute ECG changes ECHO: 12/10/2017: Left ventricle normal with an LVEF of 60%; sigmoid septum; mild left atrial enlargement; moderate to severe mitral annular calcification; extension of the mitral annular calcification onto the posterior mitral valve leaflet; mild diffuse mitral valve thickening; mild MR; mild TR; moderate to severe aortic valve stenosis; trivial PI; calcified aortic root; RV systolic pressure estimated to be 35 mmHg; decreased diastolic compliance 01/24/2018: Left ventricle normal with an LVEF of 70%; mild left atrial enlargement; moderate mitral annular calcification; extension of the mitral annular calcification onto the posterior mitral valve leaflet; mild diffuse mitral valve thickening with mild focal mitral valve calcification of the anterior leaflet; mild MR; trivial TR; stable appearing bioprosthetic aortic valve apparatus; trivial pulmonic valve insufficiency; RV systolic pressure estimated at 29 mmHg; no evidence of diastolic dysfunction Transesophageal echocardiogram: 12/11/2017: Left ventricle normal with an LVEF of 65%; mild left atrial enlargement; no spontaneous contrast in the left atrium; no thrombus detected in the left atrial appendage; moderate mitral annular calcification; mild diffuse mitral valve thickening; moderate MR; trivial TR; severe aortic valve stenosis; aortic valve area by planimetry of 0.7-0.8 cm?; bubble contrast study negative for right to left intra-atrial shunt; calcified aortic root; mild atherosclerosis of the aortic arch and descending thoracic aorta Cardiac Cath: 12/10/2017: Left ventricular ejection fraction at 65%; LV wall motion normal; elevated left ventricular end-diastolic pressure; left main coronary artery with mild luminal irregularities; LAD with a mid previously placed stent with an in-stent distal 95% restenosis followed by an 85% stenosis; diagonal branch with a proximal serial 85% stenosis; left circumflex branch with a mid circumflex small caliber vessel 95% stenosis; right coronary artery occluded; left to right collateral flow; aortic valve calcification moderate; mitral valve annular calcification moderate PCI: 07/26/2014: [place], [place]: LAD PCI/JALEEL CT Surgery: 2017: [facility]: DELEON to the LAD; SVG to the intermediate ramus branch; SVG to the posterior lateral branch; aortic valve replacement with a 19 mm [facility] trifecta pericardial prosthesis CXR: Preliminary evaluation: No acute cardiopulmonary disease process Assessment/Plan 1. CAD status post PCI status post CABG At the present time the patient has no ongoing symptoms with respect to angina pectoris. There is been no evidence of acute coronary syndrome. She does need to continue medical management. This would include agents such as aspirin, if permissible, nitrates as needed, beta-blockers, afterload reducing agents as deemed appropriate, and lipid-lowering agents if tolerated. 2. Aortic valve stenosis status post aortic valve replacement-bioprosthetic The patient does have a bioprosthetic aortic valve. It has been evaluated twice since her open heart surgery. This occurred by transthoracic echocardiogram on 01/16/2018 and again today. Both studies demonstrated her bioprosthetic aortic valve apparatus appear to be stable. Neither study suggested any obvious evidence of intracardiac mass lesion/thrombus. At the present time the patient will need to continue to be followed as deemed appropriate. She will need to continue AHA antibiotic prophylaxis. If there are ongoing issues of thromboembolic event, despite the lack of classic symptoms and/or findings of prosthetic valve endocarditis or thromboembolic events-which would be less likely with a bioprosthetic aortic valve, then she may need further evaluation of her cardiac anatomy/valvular anatomy with a transesophageal echocardiogram. 3. Hyperlipidemia The patient does have hyperlipidemia. Ideally she would be treated with medical management including a statin. She states she has statin intolerance. Thus at the present time she does need to monitor her diet and when able to participate in cardiac rehab/exercise programs as best as possible. She may need to be considered for non-statin therapy. 4. Hypertension The patient's blood pressure will be followed. Her medications can be adjusted as deemed appropriate. 5. GI bleed The patient did present for concerns of abdominal discomfort and gastrointestinal bleeding process. She is undergone evaluation as noted above with concerns of ischemic colitis. At the present time from a cardiovascular standpoint there is no definitive cardiovascular source with respect to embolic phenomena leading to this. Again depending upon her clinical course, if there are other changes and/or suggestions of other thromboembolic related issues, despite the lack of any obvious findings thus far on her repetitive transthoracic echocardiograms that she may need to be considered for further evaluation with transesophageal echocardiogram. However it is noted that echocardiographic artifact/reverberation from her bioprosthetic aortic valve may still be present on transesophageal echocardiogram, as it is on transthoracic echocardiogram, making it challenging to totally exclude sources for embolic phenomena. Comment: The above was discussed with the patient, her family members present, and Dr. Nash. This note was generated with [employer] software. It may contain incorrect words, spelling, and punctuation that were not noted in checking the note before signing.
[2018-01-24] MEDS: Metoprolol Tartrate 100 MG Tablet PO (21:54)
[2018-01-25] VITALS (7 sets, daily range): BP systolic 142–143; BP diastolic 68–73; PULSE 79–96; RESP 16–18; TEMP 36.8–37.4; O2SAT 94–95
--- NOTE | 2018-01-25 01:13 | NURSING ---
Pt. having bloody nose at this time. Applying pressure. Small amount of blood noted.
[2018-01-25] MEDS: metroNIDAZOLE 500 MG Tablet PO (06:00)
--- NOTE | 2018-01-25 06:24 | PCM.PN.SRG ---
Patient Problems: Active and Suspected Problems (Last Reviewed 01/17/18 @ 12:23 by Alfredo Jernigan MD) GI bleed (Acute) CAD (coronary artery disease) (Acute) Subjective: Pt c/o sinus and dry cough--all upper resp. concerns Denies abd pain No stools yesterday - Physical Exam Abdomen: Bowel Sounds Present, Soft, Non Tender Vital Signs Temp Pulse Resp BP Pulse Ox 99.3 F H 82 16 142/73 H 94 01/25/18 03:15 01/25/18 03:15 01/25/18 03:15 01/25/18 03:15 01/25/18 03:15 Oxygen Flow Rate (L/min) 2 Oxygen Delivery Method Room Air Weight: 119 lb 0.688 oz Body Mass Index (BMI) 22.4 Orthostatic Vital Signs Start: 01/22/18 17:56 Freq: q24h Status: Active Protocol: Activity Type Activity Date Activity User E-Sign Co-Sign Detail Recorded Client Recorded Date Recorded By Document 01/24/18 04:00 PAL [id number] 01/24/18 05:25 PAL 01/24/18 04:00 Orthostatic Vitals Standing -Blood Pressure (90/60-120/80) 128/75 H -Extremity Use Right Arm -Pulse Rate (60-100) 85 Sitting -Blood Pressure (90/60-120/80) 137/70 H -Extremity Use Right Arm -Pulse Rate (60-100) 84 Lying -Blood Pressure (90/60-120/80) 128/60 H -Extremity Use Right Arm -Pulse Rate (60-100) 82 Intake and Output for Last 24 Hours 01/23/18 01/24/18 01/25/18 23:59 23:59 23:59 Intake Total 6224.1 / 6224.1 2099 / 2099 100 / 100 Output Total 1200 / 1200 Balance 6224.1 / 6224.1 899 / 899 100 / 100 Medical Necessity - Tobacco Use Smoking Status: Never smoker Tobacco Use: Non-smoker Assessment/Plan All Active Problems (Last Reviewed 01/17/18 @ 12:23 by Alfredo Jernigan MD) GI bleed (Acute) CAD (coronary artery disease) (Acute) H/O coronary artery bypass surgery (Acute 12/20/17) Benign abdomen Advance diet Labs pending. If hgb stable then concur with discharge No further surgical intervention is planned at this time, thank you
[2018-01-25 06:59] LABS: Hematocrit 36.6 % (37-47); Hemoglobin 11.4 g/dl (12.0-15.0); Mean Corp Hgb Conc 31.1 g/gl (32-36); Mean Corpuscular Volume 93.1 fL (81-99); Mean Platelet Vol. 9.5 fl (6.2-12.0); Platelet Count 194 K/mm3 (150-450); RBC Distribution Width CV 14.5 % (11.6-14.6); RBC Distribution Width SD 49.2 fl (35.1-43.9); Red Blood Count 3.93 M/mm3 (4.2-5.4); White Blood Count 7.9 K/mm3 (4.4-11.0)
[2018-01-25 07:00] LABS: Scan Indicated on CBC? Y/N NO
[2018-01-25] MEDS: Ipratropium/Albuterol Sulfate 3 ML AMPUL.NEB INHALATION ×2 (07:40→10:55)
[2018-01-25] MEDS: Ascorbic Acid 500 MG Tablet PO (08:05)
[2018-01-25] MEDS: Metoprolol Tartrate 100 MG Tablet PO (08:05)
[2018-01-25] MEDS: Losartan Potassium 50 MG Tablet PO (08:05)
[2018-01-25] MEDS: Pantoprazole Sodium 40 MG Tablet PO (08:08)
--- NOTE | 2018-01-25 10:07 | PCM.DC ---
- Discharge Diagnoses Current Active Problems: Current Active and Chronic Problems (Last Reviewed 01/17/18 @ 12:23 by Alfredo Jernigan MD) GI bleed (Acute) CAD (coronary artery disease) (Acute) S/P PTCA (percutaneous transluminal coronary angioplasty) (Chronic) You will use the following diet at home:: Cardiac Your food should be the consistency of: Regular Discharge Activity: May Not Drive Weight Bearing Status: Weight bearing as tolerated Call your doctor if you observe: Fever of 101 or Higher, Inability to have a bowel movement, Shortness of breath, Swelling in the ankles, Chest pain, - - GI Bleed Additional Instructions: Please hold baby aspirin for 1 week. Check with PCP/Surgeon Dr. Bain before resumption. Allergies/Adverse Reactions: Allergies Penicillins Allergy (Verified 01/22/18 11:08) rash Sulfa (Sulfonamide Antibiotics) Allergy (Verified 01/22/18 11:08) rash Olywxmc-Orh-Adu Reductase Inhibitor Adverse Reaction (Verified 01/22/18 11:08) myalgias Medications to take at Discharge cholecalciferol (vitamin D3) 50,000 unit capsule 50,000 unit PO FR 12/04/17 ascorbic acid (vitamin C) 500 mg tablet 500 mg PO DAILY 01/17/18 losartan 50 mg tablet 50 mg PO DAILY #90 tab 01/17/18 Acetaminophen [Tylenol Arthritis] 650 - 1,300 mg PO Q6H PRN PRN 01/22/18 Metronidazole [Flagyl] 500 mg PO TID #21 tablet 01/24/18 Metoprolol Tartrate [Lopressor (beta isis)] 100 mg PO BID #60 tab 01/25/18 Pantoprazole Sodium [Protonix] 40 mg PO DAILY #30 tab 01/25/18 The following prescriptions were given: Pantoprazole Sodium [Protonix] 40 mg PO DAILY #30 tab Metoprolol Tartrate [Lopressor (beta isis)] 100 mg PO BID #60 tab Metronidazole [Flagyl] 500 mg PO TID #21 tablet Primary Care Physician: Linda Guerrier [Primary Care Provider] - Please follow up with your Primary Care Physician in: in 2 weeks Test Results: Test results from this visit will be discussed in further detail at your follow-up appointment, if applicable. Please Follow Up With: Alfredo Jernigan MD When: in 3-4 weeks Please Follow Up With: Matias Bain MD When: in 1 week
--- NOTE | 2018-01-25 10:10 | DCINST_ITS ---
- Discharge Diagnoses Current Active Problems: Current Active and Chronic Problems (Last Reviewed 01/17/18 @ 12:23 by Alfredo Jernigan MD) GI bleed (Acute) CAD (coronary artery disease) (Acute) S/P PTCA (percutaneous transluminal coronary angioplasty) (Chronic) You will use the following diet at home:: Cardiac Your food should be the consistency of: Regular Discharge Activity: May Not Drive Weight Bearing Status: Weight bearing as tolerated Call your doctor if you observe: Fever of 101 or Higher, Inability to have a bowel movement, Shortness of breath, Swelling in the ankles, Chest pain, - - GI Bleed Additional Instructions: Please hold baby aspirin for 1 week. Check with PCP/Surgeon Dr. Bain before resumption. Allergies/Adverse Reactions: Allergies Penicillins Allergy (Verified 01/22/18 11:08) rash Sulfa (Sulfonamide Antibiotics) Allergy (Verified 01/22/18 11:08) rash Pbqprel-Dnv-Voy Reductase Inhibitor Adverse Reaction (Verified 01/22/18 11:08) myalgias Medications to take at Discharge cholecalciferol (vitamin D3) 50,000 unit capsule 50,000 unit PO FR 12/04/17 ascorbic acid (vitamin C) 500 mg tablet 500 mg PO DAILY 01/17/18 losartan 50 mg tablet 50 mg PO DAILY #90 tab 01/17/18 Acetaminophen [Tylenol Arthritis] 650 - 1,300 mg PO Q6H PRN PRN 01/22/18 Metronidazole [Flagyl] 500 mg PO TID #21 tablet 01/24/18 Metoprolol Tartrate [Lopressor (beta isis)] 100 mg PO BID #60 tab 01/25/18 Pantoprazole Sodium [Protonix] 40 mg PO DAILY #30 tab 01/25/18 The following prescriptions were given: Pantoprazole Sodium [Protonix] 40 mg PO DAILY #30 tab Metoprolol Tartrate [Lopressor (beta isis)] 100 mg PO BID #60 tab Metronidazole [Flagyl] 500 mg PO TID #21 tablet Primary Care Physician: Linda Guerrier [Primary Care Provider] - Please follow up with your Primary Care Physician in: in 2 weeks Test Results: Test results from this visit will be discussed in further detail at your follow- up appointment, if applicable. Please Follow Up With: Alfredo Jernigan MD When: in 3-4 weeks Please Follow Up With: Matias Bain MD When: in 1 week
--- NOTE | 2018-01-25 10:10 | DS.PCM_ITS ---
Discharge Date and Diagnosis Date of Admission: 01/22/18 Date of Discharge: 01/25/18 - Primary Discharge Diagnosis Active and Suspected Problems (Last Reviewed 01/17/18 @ 12:23 by Alfredo Jernigan MD) GI bleed (Acute) CAD (coronary artery disease) (Acute) - Secondary Discharge Diagnosis Chronic Problems (Last Reviewed 01/17/18 @ 12:23 by Alfredo Jernigan MD) S/P PTCA (percutaneous transluminal coronary angioplasty) (Chronic) H/O aortic valve replacement with tissue graft (Chronic 12/20/17) AVR w/ [address] 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 Trifecta Prosthetic Tissue Valve and CABG x DELEON-LAD, SVG-Ramus, SVG-PPLB 12/22/17 [id number] and Mid LAD w/ 2.5 x 14 mm Resolute stent and 3 x 15 mm Resolute stent 08/09/14 Non-rheumatic aortic stenosis (Chronic) Old myocardial infarction (Chronic) History of coronary artery stent placement (Chronic 08/09/14) [id number] and Mid LAD w/ 2.5 x 14 mm Resolute stent and 3 x 15 mm Resolute stent 08/09/14 Hospital Course and Treatment Consultations 01/22/18 19:37 Consult: Onc/Wound/warp tension tester Routine Comment: please advise, pressure ulcer in cleft and Reason for Consult:: pressure ulcer black eschar bobby cleft, left buttocks pressure s Operations: None Summary of Care Provided: The patient is a 77 year old F with recent history of bovine aortic valve replacement on 12/20/17 in [facility], hypertension, hyperlipidemia who comes in with bright red bleeding per rectum noticed noticed on the day of admission 1. Acute hypoxic respiratory insufficiency secondary to likely aspiration pneumonitis, noted clinically, resolved seen in PACU, patient was on 4 L of oxygen overnight, weaned off oxygen with breathing treatments, incentive spirometer, aggressive pulmonary toileting. patient is walking around the unit with no oxygen. Patient had received preop clindamycin which should cover organisms, chest x-ray showed no pneumonia or pneumonitis but on the clinical suspicion of aspiration pneumonia patient was discharged on Flagyl for 7 days 2. Acute GI bleed secondary to ischemic colitis in a patient with cardiov ascular factors, recent history of bovine aortic valve replacement on 12/20/17, was on aspirin 162 mg p.o. daily, History of hemorrhoids, Status post colonoscopy, findings show ischemic colitis. The patient was seen by surgeon, Dr. Bain. Slight drop in hemoglobin from 13.5-10.3 has a component of hemodilution, medical management recommended. Patient discharged on Flagyl admission level 3. Status post recent recent aortic valve replacement, off aspirin, unclear if patient had a post valve replacement thrombosis that led to the current ischemic colitis. Poultry Slaught[employer] was consulted. Patient had 2D echo on 01/16/2018 and 01/24. Both echoes showed bioprosthetic aortic valve apparatus stable. No obvious evidence of intracardiac mass lesion/thrombosis. EF 70%. No evidence of diastolic dysfunction. No regional wall motion abnormality. Mild diffuse mitral valve thickening with focal mitral valve calcification of the anterior leaflet and posterior leaflet. Mild MR. Agree with holding baby aspirin. 4. CAD status post recent CABG recent, not on statin, on metoprolol, off aspirin 5. Hypertension, controlled, on losartan, metoprolol, will continue to monitor 6. Hyperlipidemia, on statin 7. DVT PPx - SCDs Discharge follow-up instructions completed. Discharge medication reconciliation done and discussed with the patient. Follow with PCP and surgeon Dr. Matias reynoso in 1 week to further discuss regarding resumption of baby aspirin. - Physical Exam General: Alert, Oriented x3, Cooperative HEENT: Atraumatic, PERRLA, EOMI, Normocephalic Neck: Supple, No JVD, Negative Carotid Bruits Lungs: Clear to auscultation, Normal air movement Cardiovascular: Regular rate, Regular Rhythm, Normal S1, Normal S2, No murmurs, - - Well-healing CABG scar Abdomen: Bowel Sounds Present, Soft, Non Tender, Non-Distended Extremities: No edema, Capillary Refill Less than 3 Seconds Skin: No rashes, No breakdown Musculoskeletal: No Tenderness to Palpation of Joints or Extremities, Arthritic Changes Neurological: Cranial nerves II-XII grossly intact Psych/Mental Status: Normal Affect, Appropriate Vital Signs Temp Pulse Resp BP Pulse Ox 98.2 F 96 18 143/68 H 95 01/25/18 07:55 01/25/18 08:05 01/25/18 07:55 01/25/18 07:55 01/25/18 07:55 Oxygen Flow Rate (L/min) 2 Oxygen Delivery Method Room Air Weight: 119 lb 0.688 oz Body Mass Index (BMI) 22.4 Orthostatic Vital Signs Start: 01/22/18 17:56 Freq: q24h Status: Active Protocol: Activity Type Activity Date Activity User E-Sign Co-Sign Detail Recorded Client Recorded Date Recorded By Document 01/24/18 04:00 PAL [id number] 01/24/18 05:25 PAL 01/24/18 04:00 Orthostatic Vitals Standing -Blood Pressure (90/60-120/80) 128/75 H -Extremity Use Right Arm -Pulse Rate (60-100) 85 Sitting -Blood Pressure (90/60-120/80) 137/70 H -Extremity Use Right Arm -Pulse Rate (60-100) 84 Lying -Blood Pressure (90/60-120/80) 128/60 H -Extremity Use Right Arm -Pulse Rate (60-100) 82 Intake and Output for Last 24 Hours 01/23/18 01/24/18 01/25/18 23:59 23:59 23:59 Intake Total 6224.1 / 6224.1 2099 / 2099 100 / 100 Output Total 1200 / 1200 Balance 6224.1 / 6224.1 899 / 899 100 / 100 Laboratory Tests Past 24 Hrs 01/25/18 06:39 WBC 7.9 RBC 3.93 L Hgb 11.4 L Hct 36.6 L MCV 93.1 MCH 29.0 MCHC 31.1 L RDW 14.5 RDW Differential 49.2 H Plt Count 194 MPV 9.5 Discharge Activity: May Not Drive Weight Bearing Status: Weight bearing as tolerated Call your doctor if you observe: Fever of 101 or Higher, Inability to have a bowel movement, Shortness of breath, Swelling in the ankles, Chest pain, - - GI Bleed Home Medications: Medications to take at Discharge cholecalciferol (vitamin D3) 50,000 unit capsule 50,000 unit PO FR 12/04/17 ascorbic acid (vitamin C) 500 mg tablet 500 mg PO DAILY 01/17/18 losartan 50 mg tablet 50 mg PO DAILY #90 tab 01/17/18 Acetaminophen [Tylenol Arthritis] 650 - 1,300 mg PO Q6H PRN PRN 01/22/18 Metronidazole [Flagyl] 500 mg PO TID #21 tab 01/24/18 Metoprolol Tartrate [Lopressor (beta isis)] 100 mg PO BID #60 tab 01/25/18 Pantoprazole Sodium [Protonix] 40 mg PO DAILY #30 tab 01/25/18 Following Prescrptions Were Given to Patient: Pantoprazole Sodium [Protonix] 40 mg PO DAILY #30 tab Metoprolol Tartrate [Lopressor (beta isis)] 100 mg PO BID #60 tab Metronidazole [Flagyl] 500 mg PO TID #21 tab Primary Care Physician: Linda Guerrier [Primary Care Provider] - Please follow up with your Primary Care Physician in: in 2 weeks Please Follow Up With: Alfredo Jernigan MD When: in 3-4 weeks Please Follow Up With: Matias Bain MD When: in 1 week Medical Necessity - Tobacco Use Smoking Status: Never smoker Tobacco Use: Non-smoker Meaningful Use Info Meaningful Use Diagnoses (Choose all that apply): None applicable Code Visit Inpatient E&M: 93621 Disch Hosp
--- NOTE | 2018-01-25 10:59 | PCM.PN.CARD ---
Subjectve: The patient appears to be without acute symptoms or adverse events this day. She states overall she continues to feel better day by day. Objective: Vital Signs Temp Pulse Resp BP Pulse Ox 98.2 F 79 18 143/68 H 95 01/25/18 07:55 01/25/18 10:55 01/25/18 10:55 01/25/18 07:55 01/25/18 07:55 Oxygen Flow Rate (L/min) 2 Oxygen Delivery Method Room Air Weight: 119 lb 0.688 oz Body Mass Index (BMI) 22.4 Orthostatic Vital Signs Start: 01/22/18 17:56 Freq: q24h Status: Active Protocol: Activity Type Activity Date Activity User E-Sign Co-Sign Detail Recorded Client Recorded Date Recorded By Document 01/24/18 04:00 PAL [id number] 01/24/18 05:25 PAL 01/24/18 04:00 Orthostatic Vitals Standing -Blood Pressure (90/60-120/80) 128/75 H -Extremity Use Right Arm -Pulse Rate (60-100) 85 Sitting -Blood Pressure (90/60-120/80) 137/70 H -Extremity Use Right Arm -Pulse Rate (60-100) 84 Lying -Blood Pressure (90/60-120/80) 128/60 H -Extremity Use Right Arm -Pulse Rate (60-100) 82 Intake and Output for Last 24 Hours 01/23/18 01/24/18 01/25/18 23:59 23:59 23:59 Intake Total 6224.1 / 6224.1 2099 / 2099 100 / 100 Output Total 1200 / 1200 Balance 6224.1 / 6224.1 899 / 899 100 / 100 General: Awake, Alert, Oriented x 3, Cooperative, No Acute Distress HEENT: Atraumatic, Normocephalic, PERRL, EOMI, Sclera Non Icteric Oral: Moist Mucosa Neck: Supple, Good ROM, No JVD Lungs: Clear to auscultation Cardiovascular: Regular Rhythm, Normal S1, Normal S2 Abdomen: Bowel Sounds Present, Soft, Non Tender Extremities: No Cyanosis, No Clubbing, Trace LLE Edema Neurological: No Focal Motor or Sensory Deficit Psych/Mental Status: Appropriate, Normal Affect 01/25/18 06:39: WBC 7.9, RBC 3.93 L, Hgb 11.4 L, Hct 36.6 L, MCV 93.1, MCH 29.0, MCHC 31.1 L, RDW 14.5, RDW Differential 49.2 H, Plt Count 194, MPV 9.5 Rhythm: Sinus rhythm Medical Necessity - Tobacco Use Smoking Status: Never smoker Tobacco Use: Non-smoker Assessment/Plan 1. CAD status post PCI status post CABG At the present time the patient has no ongoing symptoms with respect to angina pectoris. There is been no evidence of acute coronary syndrome. She does need to continue medical management. This would include agents such as aspirin, if permissible, nitrates as needed, beta-blockers, afterload reducing agents as deemed appropriate, and lipid-lowering agents if tolerated. Hopefully over time she will be able to reinitiate her aspirin therapy with aspirin 81 mg p.o. daily. 2. Aortic valve stenosis status post aortic valve replacement-bioprosthetic The patient does have a bioprosthetic aortic valve. It has been evaluated twice since her open heart surgery. This occurred by transthoracic echocardiogram on 01/16/2018 and again today. Both studies demonstrated her bioprosthetic aortic valve apparatus appear to be stable. Neither study suggested any obvious evidence of intracardiac mass lesion/thrombus. At the present time the patient will need to continue to be followed as deemed appropriate. She will need to continue AHA antibiotic prophylaxis. If there are ongoing issues of thromboembolic event, despite the lack of classic symptoms and/or findings of prosthetic valve endocarditis or thromboembolic events-which would be less likely with a bioprosthetic aortic valve, then she may need further evaluation of her cardiac anatomy/valvular anatomy with a transesophageal echocardiogram. 3. Hyperlipidemia The patient does have hyperlipidemia. Ideally she would be treated with medical management including a statin. She states she has statin intolerance. Thus at the present time she does need to monitor her diet and when able to participate in cardiac rehab/exercise programs as best as possible. She may need to be considered for non-statin therapy. 4. Hypertension The patient's blood pressure will be followed. Her medications can be adjusted as deemed appropriate. 5. GI bleed The patient did present for concerns of abdominal discomfort and gastrointestinal bleeding process. She is undergone evaluation as noted above with concerns of ischemic colitis. At the present time from a cardiovascular standpoint there is no definitive cardiovascular source with respect to embolic phenomena leading to this. Again depending upon her clinical course, if there are other changes and/or suggestions of other thromboembolic related issues, despite the lack of any obvious findings thus far on her repetitive transthoracic echocardiograms that she may need to be considered for further evaluation with transesophageal echocardiogram. However it is noted that echocardiographic artifact/reverberation from her bioprosthetic aortic valve may still be present on transesophageal echocardiogram, as it is on transthoracic echocardiogram, making it challenging to totally exclude sources for embolic phenomena. Comment: The above was discussed with the patient, her family members present, and Dr. Renner. This note was generated with [employer] software. It may contain incorrect words, spelling, and punctuation that were not noted in checking the note before signing.
== END 2018-01-25 11:15 | disposition home health service (06) | DRG 393 ==
LOC: ED 11:46 → MS3 13:48 → PCU 01-24 02:11
PROVIDERS: Surgery; Admitting Provider Internal Medicine; Emergency Provider Emergency Medicine; Family Provider Internal Medicine; PCP Internal Medicine; Visit Provider Internal Medicine
PROC: 0DJD8ZZ Inspection of Lower Intestinal Tract, Via Natural or Artificial Opening Endoscopic (ICD-10-PCS; CPT 45378; principal; 2018-01-23 12:55)
DX: K55.031 Focal (segmental) acute (reversible) ischemia of large intestine (principal); J69.0 Pneumonitis due to inhalation of food and vomit; K62.5 Hemorrhage of anus and rectum; K63.3 Ulcer of intestine; R06.89 Other abnormalities of breathing; R09.02 Hypoxemia; K57.30 Diverticulosis of large intestine without perforation or abscess without bleeding; K64.4 Residual hemorrhoidal skin tags; I25.119 Atherosclerotic heart disease of native coronary artery with unspecified angina pectoris; I35.0 Nonrheumatic aortic (valve) stenosis; I25.2 Old myocardial infarction; I10 Essential (primary) hypertension; E78.5 Hyperlipidemia, unspecified; Z95.2 Presence of prosthetic heart valve; Z95.1 Presence of aortocoronary bypass graft; Z98.61 Coronary angioplasty status; Z90.89 Acquired absence of other organs; Z79.82 Long term (current) use of aspirin; Z79.899 Other long term (current) drug therapy
CPT/HCPCS: 36415; 71045; 80048; 85014; 85018; 85025; 85027; 85610; 86850; 86900; 88305; 93005; 93306; 94640; 94667; 94668; 94762; 99285; J7030; J7050; Q9957; A4216; C8929; J2405